=== PATIENT | male | born 1970 | race Caucasian/White ===

== ENCOUNTER 2024-03-07 20:10 | Inpatient (IN) | payer OTHER, SELFPAY ==
[2024-03-07] VITALS (42 sets, daily range): BP systolic 76–118; BP diastolic 16–92; BMI 22.1; BMI 23.1
[2024-03-07 16:39] LABS: % Basophils 0.2 % (0-2); % Eosinophils 0.3 % (0-6); % Immature Granulocytes 0.5 % (0-0.5); % Lymphocytes 19.5 % (20.5-51.1); % Monocytes 11.4 % (1.7-9.3); % Neutrophils 68.1 % (42.2-75.2); Absolute Immature Granulocytes 0.1 10^3/uL (0-0.05); Absolute Lymphocytes 1.9 10^3/uL (1.2-3.4); Absolute Monocytes 1.1 10^3/uL (0.1-0.6); Absolute Neutrophils 6.5 10^3/uL (1.4-6.5); Hematocrit 40.1 % (39.0-52.0); Mean Corp Hgb Conc. 34.9 g/dL (33.0-37.0); Mean Corpuscular Hgb 33.9 pg (27.0-31.0); Mean Corpuscular Volume 97.1 fL (80.0-94.0); Mean Platelet Volume 10.9 fL (7.4-10.4); Nucleated Red Blood Cells % 0 % (-); Platelet Count 281 10^3/uL (130-400); Red Blood Cell Count 4.13 10^6/uL (4.70-6.10); Red Cell Dist. Width 13.6 % (11.5-14.5); White Blood Cell Count 9.6 10^3/uL (4.8-10.8)
--- NOTE | 2024-03-07 16:47 | ED.GENMED ---
History of Present Illness
<Michela Leonardo PA-C - Last Filed: 03/07/24 21:50>
General
Chief Complaint: Abdominal Pain
Source: patient
Time Seen by Provider: 03/07/24 16:37
History of Present Illness
History of Present Illness:
53yoM with a history of tobacco use (1/2ppd) presenting for evaluation of palpitations. Patient started with GI symptoms about a week ago including abdominal discomfort, decreased appetite, and diarrhea. Abdominal pain is located in the LUQ and
flank regions. He was seen by his PCP yesterday for the symptoms and was sent for outpatient blood work and stool studies. He completed these tests although has not received the results yet. Patient started to experience shortness of breath as
well as feeling like his heart racing over the past few days. Symptoms became worse today prompting him to come to the ED. Patient reports that his GI symptoms are improving. He denies any dizziness or syncope. Patient denies any prior medical
history and is not taking any medications. He arrives in afib with RVR with a heart rate in the 160s.
Phy Exam
<Michela Leonardo PA-C - Last Filed: 03/07/24 21:50>
General Physical Exam
General Presentation: mild distress
General Skin: warm and dry
General Habitus: normal
General Mental: alert
ENT Exam
ENT Exam: normocephalic
Cardiovascular Exam
Cardiovascular Exam: irregularly irregular and tachycardia
Pulmonary Exam
Pulmonary Exam: no respiratory distress, no rales, no rhonchi and other (Tachypnea noted)
Respirations: mild increase in effort
Gastrointestinal Exam
Gastrointestinal Exam: soft and non distended
Palpation: left upper quadrant: Moderate tenderness
Giancarlo Coma Scale
Eye Opening: Spontaneous
Verbal Response: Oriented
Motor Response: Obeys Commands
GCS Total Score: 15
Skin Exam
Skin Exam: normal color and warm/dry
Psychiatric Exam
Psychiatric Exam: normal mood/affect
Course
<Michela Leonardo PA-C - Last Filed: 03/07/24 21:50>
Orders/Labs/Results
Orders:
Orders
03/07/24 Breakfast
NPO
Allow oral meds: Yes
Allow clear liquids: Sips of Clears
03/07/24 16:12
Electrocardiogram (*1) Urgent
Reason for Study: Shortness of Breath
EKG- Treatment ONCE
03/07/24 16:18
COVID-19 Antigen Urgent
Source: Nasal Swab
Complete Blood Count/With Diff Urgent
Comprehensive Metabolic Panel Urgent
Lipase Urgent
Magnesium Urgent
NT-proBNP Urgent
03/07/24 16:45
Cardiac Monitoring- Treatment ONCE
0.9% Sodium Chloride 1000 ml [Nss] 1,000 ml IV BOLUS
Diltiazem HCl [Cardizem] 15 mg IV NOW STA
CR Chest Portable - 1 View Urgent
Comment:
Reason For Exam: SOB
Reason Study Needs to be Portable: Unable to Transport
03/07/24 16:53
TSH Reflex To Free T4 Urgent
Troponin I Urgent
03/07/24 17:07
0.9% Sodium Chloride 1000 ml [Nss] 1,000 ml IV BOLUS
03/07/24 17:09
Hepatitis A IgM Antibody Urgent
Hepatitis B Core Ab, IgM Urgent
Hepatitis B Surface Antibody Urgent
Hepatitis B Surface Antigen Urgent
Hepatitis C Antibody Urgent
PTT Urgent
Comment: ADD ON
Prothrombin Time Urgent
03/07/24 17:39
CT Chest/abd/pelvis Angio W/wo Urgent
Comment:
Reason For Exam: SOB, LUQ/flank pain
03/07/24 17:57
Electrocardiogram (*1) Urgent
Reason for Study: Shortness of Breath
EKG- Treatment ONCE
03/07/24 18:00
NORepinephrine 4 MG/250 ML [Levophed] 4 mg in 250 ml IV PER PROTOCOL
Initial dose in mcg/min, then titrate:: 4
Titrate to keep:: MAP > 65 mmHg
Titrate by mcg/min:: 1-2 mcg/min
Frequency of titrations (minutes):: 5
Maximum dose in ICU in mcg/min:: 30
Maximum dose in IMU in mcg/min:: 8
Maximum dose in IVU in mcg/min:: 4
Begin to taper infusion when:: Remained at goal for 4hrs
Taper by mcg/min:: 1-2 mcg/min
Frequency of taper (minutes) if patient maintains goal:: 30
Taper to off?: Yes
If infusion off & no longer maintaining goal:: Contact Provider
03/07/24 19:13
Urinalysis Reflex To Culture Urgent
03/07/24 19:45
Diltiazem 125 mg/125 ml Nss [Cardizem] 125 mg in 125 ml IV PER PROTOCOL
Initial dose in mg/hr, then titrate:: 5
Titrate to keep:: Heart rate 80-100 bpm
Titrate by mg/hr:: 5 mg/hr
Frequency of titrations (minutes):: 15
Maximum dose in mg/hr:: 15
03/07/24 19:57
Admit/Transfer Patient As Directed
Co-Sign Provider:
Level of Care: Inpatient admission
Assign to:: IMU- Intermediate Care
Physician / Group: [facility]
Diagnosis: A-Fib with RVR, CHF
Reason for Hospitalization: A-Fib with RVR, CHF
Expected length of stay greater than two midnights?: Yes
ELOS- Estimated Length of Stay in days: 3
I certify the patient meets the requirements for IP care: Yes
PRN Pain Medication Management As Directed
May give lesser potent ordered pain med per pt: Yes
preference::
Protocol:: Medication orders for pain may be administered in a
manner that supports deferring to patient preference
when the pt is:
- Requesting an ordered lesser potent pain medication.
Least to most potent pain medications are defined
as: acetaminophen < NSAID < tramadol < opioids
(morphine, oxycodone, hydromorphone).
- Requesting a lesser dose of the same medication IF
ORDERED.
- Requesting a less intrusive route of administration
if both routes are prescribed by the provider (PO <
IV).
03/07/24 19:58
Code Status As Directed
Resuscitation Status: Full Code
03/07/24 20:51
Acetaminophen [Tylenol] 650 mg PO Q4HPRN PRN
Diltiazem 125 mg/125 ml Nss [Cardizem] 125 mg in 125 ml IV PER PROTOCOL
Initial dose in mg/hr, then titrate:: 5
Titrate to keep:: Other
Titrate to keep other:: HR 90-110
Titrate by mg/hr:: 5 mg/hr
Frequency of titrations (minutes):: 15
Maximum dose in mg/hr:: 15
Heparin 76311 Units/250 ml 25,000 units in 250 ml IV PER PROTOCOL
Weight to be used for heparin protocol in kilograms (kg):: 70
Protocol:: Cardiac Tx/Acute Coronary
PTT Goal Range to be used:: PTT 73 to 111 seconds
Order type:: Initial
INITIAL Infusion Dose (UNITS/KG/hr) & then follow protocol:: 12 units/kg/hr
Infusion Dose in UNITS/hr & then follow protocol (UNITS/hr):: 850
INFUSION RATE in mL/hr & then follow protocol (mL/hr):: 8.5
PTT less than or equal to 64 seconds:: Increase rate by 200 units/hr (+ 2 mL/hr)
PTT 64.1 to 72.9 seconds:: Increase rate by 100 units/hr (+ 1 mL/hr)
PTT 73 to 111 seconds:: Target Range. No change in rate.
PTT 111.1 to 130.9 seconds:: Decrease rate by 100 units/hr (- 1 mL/hr)
PTT 131 to 199.9 seconds:: HOLD for 1 hr. Then decrease rate by 200 units/hr (- 2 mL/hr)
PTT greater than or equal to 200 seconds:: HOLD for 2 hrs & Notify Provider. Then decrease by 200 units/hr (-
2 mL/hr)
Lab follow-up:: Each change, PTT q6h until 2 consecutive are therapeutic. Then PTT
daily.
03/07/24 20:51
Echo 2D MMode Doppler [Echo 2D MMode Color/Doppler] Routine
Reason for Study: A-Fib with RVR, CHF
CARDIOLOGY CONSULT Routine
Consulting Provider: Hamzah Caro
Was physician already notified: Yes
Reason for consult: A-Fib with RVR, CHF
[id number] [S] Routine
Heparin Protocol- PTT Orders As Directed
PTT per Heparin protocol: -Obtain CBC and baseline PTT - if not already collected.
-Obtain PTT 6 hours from start of infusion. Then, every 6 hours until 2 consecutive
PTT's are therapeutic. Then, PTT Daily.
-With each rate change, obtain PTT every 6 hours until 2 consecutive PTT's are
therapeutic. Then, PTT Daily.
Activity As Directed
Activity Level: Ambulate
With Assistance
Bladder Scan As Directed
Follow Bladder Retention/Intermittent Cath Algorithm?: Yes
PRN if no void in __ hours: 6
Frequency: Per Retention Algorithm
If Bladder Scan Result >: 400
then:: Straight cath
EKG with chest pain [ECG as needed] As Directed
ECG as needed for:: Chest Pain
I/O [Intake/ Output] As Directed
Frequency: Per unit guidelines
Notify MD As Directed
Notify physician if: PTT is greater than or equal to 200.
Orthostatic Vital Signs As Directed
Orthostatic VS Frequency: BID
Straight Cath As Directed
Frequency: Per Retention Algorithm
Additional Instructions: straight cath as needed per acute urinary retention algorithm for 24 hrs
Additional Instructions: for bladder scan greater than 400 mL
Vital Signs As Directed
Frequency: Per unit guidelines
Weight As Directed
Frequency: Daily
Oxygen Therapy [O2 Therapy] [RESP] Routine
Titrate/Wean O2 to maintain O2 sat greater than (%): 94
03/08/24 06:00
EKG [Electrocardiogram (*1)] IN AM
Reason for Study: Chest Pain
Basic Metabolic Panel IN AM
Cardiovascular Evaluation IN AM
Complete Blood Count/No Diff IN AM
03/09/24 06:00
Complete Blood Count/No Diff Q2D
Comment: Notify MD if platelet count is <130,000 or decreases by 50% from baseline
03/11/24 06:00
Complete Blood Count/No Diff Q2D
Comment: Notify MD if platelet count is <130,000 or decreases by 50% from baseline
03/13/24 06:00
Complete Blood Count/No Diff Q2D
Comment: Notify MD if platelet count is <130,000 or decreases by 50% from baseline
03/15/24 06:00
Complete Blood Count/No Diff Q2D
Comment: Notify MD if platelet count is <130,000 or decreases by 50% from baseline
03/17/24 06:00
Complete Blood Count/No Diff Q2D
Comment: Notify MD if platelet count is <130,000 or decreases by 50% from baseline
03/19/24 06:00
Complete Blood Count/No Diff Q2D
Comment: Notify MD if platelet count is <130,000 or decreases by 50% from baseline
03/21/24 06:00
Complete Blood Count/No Diff Q2D
Comment: Notify MD if platelet count is <130,000 or decreases by 50% from baseline
03/23/24 06:00
Complete Blood Count/No Diff Q2D
Comment: Notify if platelet count is <130,000 or decreases by 50% from baseline
Abnormal Lab Results
03/07/24 03/07/24 03/07/24
16:18 16:53 17:09
RBC 4.13 L 10^6/uL
(4.70-6.10)
MCV 97.1 H fL
(80.0-94.0)
MCH 33.9 H pg
(27.0-31.0)
MPV 10.9 H fL
(7.4-10.4)
Abs Immat Gran (auto) 0.1 H 10^3/uL
(0-0.05)
Absolute Monos (auto) 1.1 H 10^3/uL
(0.1-0.6)
Lymphocytes % 19.5 L %
(20.5-51.1)
Monocytes % 11.4 H %
(1.7-9.3)
PT 22.9 H Sec
(11.4-14.6)
Sodium 128 L mmol/L
(135-145)
Chloride 92 L mmol/L
(98-107)
Carbon Dioxide 20 L mmol/L
(22-30)
BUN 31 H mg/dl
(9-20)
Glucose 113 H mg/dl
(70-99)
Total Bilirubin 2.8 H mg/dl
(0.2-1.3)
AST 1277 H* U/L
(17-59)
ALT 597 H* U/L
(0-50)
Troponin I 0.343 H* ng/ml
03/07/24 16:18
03/07/24 16:18
Vital Signs
Initial and Last Documented VS:
Initial Vital Signs
Temp Pulse Resp BP Pulse Ox
98.1 F 80 20 106/73 99
03/07/24 16:08 03/07/24 16:08 03/07/24 16:08 03/07/24 16:08 03/07/24 16:08
Last Documented Vital Signs
Temp Pulse Resp BP Pulse Ox
98.0 F 134 31 98/76 98
03/07/24 21:22 03/07/24 21:31 03/07/24 21:31 03/07/24 21:31 03/07/24 21:44
<Andrea Mejia, DO - Last Filed: 03/07/24 17:48>
Orders/Labs/Results
Orders:
Orders
03/07/24 Breakfast
NPO
Allow oral meds: Yes
Allow clear liquids: Sips of Clears
03/07/24 16:12
Electrocardiogram (*1) Urgent
Reason for Study: Shortness of Breath
EKG- Treatment ONCE
03/07/24 16:18
COVID-19 Antigen Urgent
Source: Nasal Swab
Complete Blood Count/With Diff Urgent
Comprehensive Metabolic Panel Urgent
Lipase Urgent
Magnesium Urgent
NT-proBNP Urgent
03/07/24 16:45
Cardiac Monitoring- Treatment ONCE
0.9% Sodium Chloride 1000 ml [Nss] 1,000 ml IV BOLUS
Diltiazem HCl [Cardizem] 15 mg IV NOW STA
CR Chest Portable - 1 View Urgent
Comment:
Reason For Exam: SOB
Reason Study Needs to be Portable: Unable to Transport
03/07/24 16:53
TSH Reflex To Free T4 Urgent
Troponin I Urgent
03/07/24 17:07
0.9% Sodium Chloride 1000 ml [Nss] 1,000 ml IV BOLUS
03/07/24 17:09
Hepatitis A IgM Antibody Urgent
Hepatitis B Core Ab, IgM Urgent
Hepatitis B Surface Antibody Urgent
Hepatitis B Surface Antigen Urgent
Hepatitis C Antibody Urgent
PTT Urgent
Comment: ADD ON
Prothrombin Time Urgent
03/07/24 17:39
CT Chest/abd/pelvis Angio W/wo Urgent
Comment:
Reason For Exam: SOB, LUQ/flank pain
03/07/24 17:57
Electrocardiogram (*1) Urgent
Reason for Study: Shortness of Breath
EKG- Treatment ONCE
03/07/24 18:00
NORepinephrine 4 MG/250 ML [Levophed] 4 mg in 250 ml IV PER PROTOCOL
Initial dose in mcg/min, then titrate:: 4
Titrate to keep:: MAP > 65 mmHg
Titrate by mcg/min:: 1-2 mcg/min
Frequency of titrations (minutes):: 5
Maximum dose in ICU in mcg/min:: 30
Maximum dose in IMU in mcg/min:: 8
Maximum dose in IVU in mcg/min:: 4
Begin to taper infusion when:: Remained at goal for 4hrs
Taper by mcg/min:: 1-2 mcg/min
Frequency of taper (minutes) if patient maintains goal:: 30
Taper to off?: Yes
If infusion off & no longer maintaining goal:: Contact Provider
03/07/24 19:13
Urinalysis Reflex To Culture Urgent
03/07/24 19:45
Diltiazem 125 mg/125 ml Nss [Cardizem] 125 mg in 125 ml IV PER PROTOCOL
Initial dose in mg/hr, then titrate:: 5
Titrate to keep:: Heart rate 80-100 bpm
Titrate by mg/hr:: 5 mg/hr
Frequency of titrations (minutes):: 15
Maximum dose in mg/hr:: 15
03/07/24 19:57
Admit/Transfer Patient As Directed
Co-Sign Provider:
Level of Care: Inpatient admission
Assign to:: IMU- Intermediate Care
Physician / Group: [facility]
Diagnosis: A-Fib with RVR, CHF
Reason for Hospitalization: A-Fib with RVR, CHF
Expected length of stay greater than two midnights?: Yes
ELOS- Estimated Length of Stay in days: 3
I certify the patient meets the requirements for IP care: Yes
PRN Pain Medication Management As Directed
May give lesser potent ordered pain med per pt: Yes
preference::
Protocol:: Medication orders for pain may be administered in a
manner that supports deferring to patient preference
when the pt is:
- Requesting an ordered lesser potent pain medication.
Least to most potent pain medications are defined
as: acetaminophen < NSAID < tramadol < opioids
(morphine, oxycodone, hydromorphone).
- Requesting a lesser dose of the same medication IF
ORDERED.
- Requesting a less intrusive route of administration
if both routes are prescribed by the provider (PO <
IV).
03/07/24 19:58
Code Status As Directed
Resuscitation Status: Full Code
03/07/24 20:51
Acetaminophen [Tylenol] 650 mg PO Q4HPRN PRN
Diltiazem 125 mg/125 ml Nss [Cardizem] 125 mg in 125 ml IV PER PROTOCOL
Initial dose in mg/hr, then titrate:: 5
Titrate to keep:: Other
Titrate to keep other:: HR 90-110
Titrate by mg/hr:: 5 mg/hr
Frequency of titrations (minutes):: 15
Maximum dose in mg/hr:: 15
Heparin 43331 Units/250 ml 25,000 units in 250 ml IV PER PROTOCOL
Weight to be used for heparin protocol in kilograms (kg):: 70
Protocol:: Cardiac Tx/Acute Coronary
PTT Goal Range to be used:: PTT 73 to 111 seconds
Order type:: Initial
INITIAL Infusion Dose (UNITS/KG/hr) & then follow protocol:: 12 units/kg/hr
Infusion Dose in UNITS/hr & then follow protocol (UNITS/hr):: 850
INFUSION RATE in mL/hr & then follow protocol (mL/hr):: 8.5
PTT less than or equal to 64 seconds:: Increase rate by 200 units/hr (+ 2 mL/hr)
PTT 64.1 to 72.9 seconds:: Increase rate by 100 units/hr (+ 1 mL/hr)
PTT 73 to 111 seconds:: Target Range. No change in rate.
PTT 111.1 to 130.9 seconds:: Decrease rate by 100 units/hr (- 1 mL/hr)
PTT 131 to 199.9 seconds:: HOLD for 1 hr. Then decrease rate by 200 units/hr (- 2 mL/hr)
PTT greater than or equal to 200 seconds:: HOLD for 2 hrs & Notify Provider. Then decrease by 200 units/hr (-
2 mL/hr)
Lab follow-up:: Each change, PTT q6h until 2 consecutive are therapeutic. Then PTT
daily.
03/07/24 20:51
Echo 2D MMode Doppler [Echo 2D MMode Color/Doppler] Routine
Reason for Study: A-Fib with RVR, CHF
CARDIOLOGY CONSULT Routine
Consulting Provider: Hamzah Caro
Was physician already notified: Yes
Reason for consult: A-Fib with RVR, CHF
[id number] [S] Routine
Heparin Protocol- PTT Orders As Directed
PTT per Heparin protocol: -Obtain CBC and baseline PTT - if not already collected.
-Obtain PTT 6 hours from start of infusion. Then, every 6 hours until 2 consecutive
PTT's are therapeutic. Then, PTT Daily.
-With each rate change, obtain PTT every 6 hours until 2 consecutive PTT's are
therapeutic. Then, PTT Daily.
Activity As Directed
Activity Level: Ambulate
With Assistance
Bladder Scan As Directed
Follow Bladder Retention/Intermittent Cath Algorithm?: Yes
PRN if no void in __ hours: 6
Frequency: Per Retention Algorithm
If Bladder Scan Result >: 400
then:: Straight cath
EKG with chest pain [ECG as needed] As Directed
ECG as needed for:: Chest Pain
I/O [Intake/ Output] As Directed
Frequency: Per unit guidelines
Notify MD As Directed
Notify physician if: PTT is greater than or equal to 200.
Orthostatic Vital Signs As Directed
Orthostatic VS Frequency: BID
Straight Cath As Directed
Frequency: Per Retention Algorithm
Additional Instructions: straight cath as needed per acute urinary retention algorithm for 24 hrs
Additional Instructions: for bladder scan greater than 400 mL
Vital Signs As Directed
Frequency: Per unit guidelines
Weight As Directed
Frequency: Daily
Oxygen Therapy [O2 Therapy] [RESP] Routine
Titrate/Wean O2 to maintain O2 sat greater than (%): 94
03/08/24 06:00
EKG [Electrocardiogram (*1)] IN AM
Reason for Study: Chest Pain
Basic Metabolic Panel IN AM
Cardiovascular Evaluation IN AM
Complete Blood Count/No Diff IN AM
03/09/24 06:00
Complete Blood Count/No Diff Q2D
Comment: Notify MD if platelet count is <130,000 or decreases by 50% from baseline
03/11/24 06:00
Complete Blood Count/No Diff Q2D
Comment: Notify MD if platelet count is <130,000 or decreases by 50% from baseline
03/13/24 06:00
Complete Blood Count/No Diff Q2D
Comment: Notify MD if platelet count is <130,000 or decreases by 50% from baseline
03/15/24 06:00
Complete Blood Count/No Diff Q2D
Comment: Notify MD if platelet count is <130,000 or decreases by 50% from baseline
03/17/24 06:00
Complete Blood Count/No Diff Q2D
Comment: Notify MD if platelet count is <130,000 or decreases by 50% from baseline
03/19/24 06:00
Complete Blood Count/No Diff Q2D
Comment: Notify MD if platelet count is <130,000 or decreases by 50% from baseline
03/21/24 06:00
Complete Blood Count/No Diff Q2D
Comment: Notify MD if platelet count is <130,000 or decreases by 50% from baseline
03/23/24 06:00
Complete Blood Count/No Diff Q2D
Comment: Notify MD if platelet count is <130,000 or decreases by 50% from baseline
Abnormal Lab Results
03/07/24 03/07/24 03/07/24
16:18 16:53 17:09
RBC 4.13 L 10^6/uL
(4.70-6.10)
MCV 97.1 H fL
(80.0-94.0)
MCH 33.9 H pg
(27.0-31.0)
MPV 10.9 H fL
(7.4-10.4)
Abs Immat Gran (auto) 0.1 H 10^3/uL
(0-0.05)
Absolute Monos (auto) 1.1 H 10^3/uL
(0.1-0.6)
Lymphocytes % 19.5 L %
(20.5-51.1)
Monocytes % 11.4 H %
(1.7-9.3)
PT 22.9 H Sec
(11.4-14.6)
Sodium 128 L mmol/L
(135-145)
Chloride 92 L mmol/L
(98-107)
Carbon Dioxide 20 L mmol/L
(22-30)
BUN 31 H mg/dl
(9-20)
Glucose 113 H mg/dl
(70-99)
Total Bilirubin 2.8 H mg/dl
(0.2-1.3)
AST 1277 H* U/L
(17-59)
ALT 597 H* U/L
(0-50)
Troponin I 0.343 H* ng/ml
03/07/24 16:18
03/07/24 16:18
Vital Signs
Initial and Last Documented VS:
Initial Vital Signs
Temp Pulse Resp BP Pulse Ox
98.1 F 80 20 106/73 99
03/07/24 16:08 03/07/24 16:08 03/07/24 16:08 03/07/24 16:08 03/07/24 16:08
Last Documented Vital Signs
Temp Pulse Resp BP Pulse Ox
98.0 F 134 31 98/76 98
03/07/24 21:22 03/07/24 21:31 03/07/24 21:31 03/07/24 21:31 03/07/24 21:44
<Michela Leonardo PA-C - Last Filed: 03/07/24 21:50>
MDM/Problems Addressed
Differential Diagnosis Includes:
53yoM here with GI symptoms (abd pain, diarrhea) x 1 week. Now with SOB and palpitations. Heart rate 160s on initial exam. EKG obtained in triage shows afib with RVR. No prior history of this. Patient also noted to be tachypneic although he denies
feeling SOB currently. +LUQ tenderness on abdominal exam. Differential diagnosis includes but is not limited to: afib, electrolyte abnormality, thyroid dysfunction, malignancy, ACS, PE, aortic dissection
Initial ED plan: Patient placed on director cardiac. Check cardiac labs, lipase, magnesium, TSH, and portable CXR. IV fluid bolus and IV Cardizem bolus.
<Michela Leonardo PA-C - Last Filed: 03/07/24 21:50>
*EKG
Interpreted by ED Provider?: Yes
EKG Intrepretation Date: 03/07/24
Heart Rate: 163
Rate: tachycardiac
Rhythm: a-fib and PVC's
[place]: normal axis
Interval: normal interval
Ischemia: non-specific ST changes
*Critical Care Note
Total Time (30-74mins, 75-104mins- exclusive of procedures): 45
<Michela Leonardo PA-C - Last Filed: 03/07/24 21:50>
Update Note
Update Note:
Labs reveal AST 1277, ALT 597, and total bilirubin 2.8. Lipase normal. INR added which is elevated at 2. BNP 6000 and troponin 0.343. Portable CXR shows small bilateral pleural effusions and mild cardiomegaly.
Patient became hypotensive after receiving Cardizem bolus. Additional fluid bolus ordered. CTA CAP ordered to evaluate for aortic dissection and PE. CT is negative for dissection but does reveal bilateral effusions, mild ascites, and early cirrhotic
changes.
Blood pressure improved with fluids. Case discussed with cardiology. Will start on a Cardizem gtt at 5mg/hr without a bolus. He was admitted for further management.
ED Attending Note
<Michela Leonardo PA-C - Last Filed: 03/07/24 21:50>
-
Portions of this chart may have been created with voice recognition software.� Occasional wrong word or��sound alike� substitutions may have occurred due to the inherent limitations of voice recognition software.
<Andrea Mejia DO - Last Filed: 03/07/24 17:48>
ED Attending Note
Patient seen and examined by attending physician: Yes
ED Attending Note:
I reviewed and agree with history and treatment plan by Michela Leonardo. My exam reveals 53-year-old male in minimal distress, tachycardia, hypotensive. Lungs clear. Abdomen exam with mild left upper quadrant tenderness. No rebound or guarding.
Patient with elevated troponin, rapid atrial fibrillation and elevated BNP. Will evaluate for aortic pathology, pulmonary emboli and concern for NSTEMI.
Discharge Plan
Departure
Patient Disposition: Admit
Date of Disposition: 03/07/24
Time of Disposition: 19:32
Presentation/result/management discussed w/ accepting MD/DO: Hospitalist
Discharge Problem:
Atrial fibrillation with RVR, Bilateral pleural effusion, Transaminitis
Interventions
Interventions:
*Risk Screen - Suicide Last Done: 03/07/24 16:03
*General Assessment Last Done: 03/07/24 16:08
*Neglect/Abuse Screening Last Done: 03/07/24 16:45
ED- Fall Risk Assessment Last Done: 03/07/24 19:16
*ED COVID-19 Vaccine History Last Done: 03/07/24 16:45
*Nursing Disposition Last Done: 03/07/24 20:45
FD-Xpuinh-Fdfwhjjten Assessment Last Done: 03/07/24 19:16
Discharge Date and Time
Discharge Date/Time: 03/07/24 21:00
[2024-03-07 16:55] LABS: COVID-19 Antigen Negative (Negative)
[2024-03-07] MEDS: NSS 1000 IV ×2 (16:57→17:15)
[2024-03-07 16:58] LABS: NT-proBNP 6310 pg/ml
[2024-03-07 17:00] LABS: ALT (SGPT) 597 U/L (0-50); Albumin 3.8 g/dl (3.5-5.0); Alkaline Phosphatase 105 U/L (38-126); Blood Urea Nitrogen 31 mg/dl (9-20); Calcium 8.7 mg/dl (8.4-10.2); Carbon Dioxide 20 mmol/L (22-30); Chloride 92 mmol/L (98-107); Estimated Creatinine Clearance 94 ml/min; Glucose 113 mg/dl (70-99); Potassium 4.9 mmol/L (3.5-5.1); Sodium 128 mmol/L (135-145); Total Bilirubin 2.8 mg/dl (0.2-1.3); Total Protein 6.3 g/dl (6.3-8.2); eGFR > 60.00
[2024-03-07] MEDS: CARDIZEM 15 MG IV (17:00)
[2024-03-07 17:09] LABS: AST (SGOT) 1277 U/L (17-59); Lipase 123 U/L (23-300)
[2024-03-07 17:20] LABS: Magnesium 1.9 mg/dl (1.6-2.3)
[2024-03-07 17:29] LABS: INR 2.04; PT 22.9 Sec (11.4-14.6)
[2024-03-07 17:36] LABS: Troponin I 0.343 ng/ml
[2024-03-07 17:50] LABS: TSH Reflex To Free T4 2.84 uIU/ml (0.47-4.68)
--- NOTE | 2024-03-07 20:04 | HPS.HSE ---
Family Physician
-
Family Physician: Gregorio Milton MD
Chief Complaint
-
Abdominal Pain, Diarrhea, Palpitations
History of Present Illness
Patient is a 53y M with no significant PMH who presents to ED complaining of abdominal pain and diarrhea x 1 week. Patient states that his symptoms started last and have waxed and waned since that time. He notes LLQ abdominal pain with
initially watery diarrhea and now soft, frequent stools. No bloody or black stools. No fevers / chills. No N/V. Patient denies any recent travel, unusual food exposures, etc.
Patient also states that he was seen by his physician yesterday and advised to present to the ED at that time. He was noted to have a rapid heart rate and says that he did note some palpitations at that time. He declined ED evaluation at that time
however.
Patient reports feeling very 'tired' and fatigued with activity over the past week - though he denies any dyspnea per se. No chest pain or pressure. No LE edema.
Patient felt that his symptoms seemed worse today and he presented to the ED for further evaluation.
In the ED, patient lying flat comfortably and is noted to be in A-Fib with uncontrolled ventricular response.
He was given a bolus dose of diltiazem and his BP decreased into the 70s systolic. This has improved after 2 liters of IVFs.
His HR at present is 130-150 bpm.
Medical History
Past Medical History
Past Medical History: Reports None
Past Surgical History: Reports Other
Additional Past Surgical History:
Dental Surgeries
Social History
Tobacco: Smoker (Current every day smoker. About 1/2 ppd. Total of 15 pack years.)
Alcohol: Occasional (Rare alcohol use. 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
Drug: None
Family History
Family History: Other (Father: Obesity Mother: A-Fib, Breast Cancer)
Allergies / Home Medications
Allergies reflects when Allergies were last updated in [facility].
Home Medications with original date entered in [facility]
Allergy/Medication List:
Allergies
Allergy/AdvReac Type Severity Reaction Status Date / Time
No Known Allergies Allergy Unverified 03/07/24 16:08
Home Medications
No Meds [No Current Medications] 03/07/24
Review of Systems
-
History Source: Patient
A 12 point ROS was completed and negative except as noted: Yes
Constitutional: Reports Fatigue; Denies Fever or Chills
EENT: Denies Sore Throat
Respiratory: Denies Cough, Hemoptysis or Trouble Breathing
Cardiac: Reports Palpitations; Denies Chest Pain, Diaphoresis or Syncope
Abdomen/GI: Reports Abdominal Pain and Diarrhea; Denies Nausea, Vomiting, Bloody Stools or Black Stools
: Denies Dysuria, Frequency or Flank Pain
Musculoskeletal: Denies Joint Pain or Edema
Neurological: Denies Dizzy or Headache
Psych: Denies Depression or Anxiety
Physical Exam
Vital Signs
Vital Signs
Temp Pulse Resp BP Pulse Ox
98.1 F 133 32 100/70 96
03/07/24 16:08 03/07/24 19:13 03/07/24 19:13 03/07/24 19:48 03/07/24 19:13
Physical Exam
General: Other (53y M in no acute distress.)
HEENT: Moist mucous membranes, PERRLA and Other (Pos JVD to the angle of the mandible.)
Respiratory: Other (Decreased BS at bases - otherwise clear.)
Cardiac: S1/S2, Irregular Rhythm and Murmur (II/ RICCARDO)
GI: Soft, Non Tender, Non Distended and Normal Bowel Sounds
Musculoskeletal: No Clubbing, No Cyanosis and No Edema
Neuro: AO x 3
Laboratory Results
-
03/07/24 16:18
03/07/24 16:18
Laboratory Results
PT 22.9 Sec (11.4-14.6) H 03/07/24 17:09
INR 2.04 03/07/24 17:09
Total Bilirubin 2.8 mg/dl (0.2-1.3) H 03/07/24 16:18
AST 1277 U/L (17-59) H* 03/07/24 16:18
ALT 597 U/L (0-50) H* 03/07/24 16:18
Alkaline Phosphatase 105 U/L (38-126) 03/07/24 16:18
Troponin I 0.343 ng/ml H* 03/07/24 16:53
Lipase 123 U/L (23-300) 03/07/24 16:18
Impression/Plan
-
A/P: Patient is a 53y M with no significant PMH who presents to ED complaining of one week of abdominal pain, diarrhea and fatigue.
Atrial Fibrillation - New - With Rapid Ventricular Response
- Admit to IMU for further evaluation and treatment.
- Cardizem infusion and titrate as needed for rate control without significant hypotension.
- Cardiology evaluation in the AM for additional recommendations / treatment options.
- IV heparin for now for stroke risk reduction.
Acute HF- Unknown Type
- Cardiomegaly noted on imaging with evidence of hepatic cirrhosis, JVD on exam and bilateral pleural effusions.
- Suspect related to A-Fib to some degree.
- Would likely benefit from diuresis - once rate / BP are stabilized.
- Check Echo.
- Cardiology evaluation as noted above.
- Caution with additional volume / IVFs given apparent volume overload.
Troponin Elevation - Unknown Type
- No complaints of chest pain. EKG without obvious ischemia.
- Potentially due to rate-related process / stress.
- Follow troponin to peak. Rate control as noted above.
- Cardiology evaluation.
Abnormal LFTs
Cirrhosis
Hyponatremia
- Abnormal LFTs, minimal ascites, JVD, abdominal discomfort and diarrhea.
- Seems c/w right-sided heart failure based on remainder of presentation.
- BNP = 6310 with no prior value for comparison.
- No recent travel or other known exposures, etc.
- No significant EtOH, drug use, etc per patient.
- Hepatitis panel is pending.
- Follow for improvement in LFTs, etc.
- Would likely benefit from diuresis when hemodynamically stable to do so - as noted above.
DVT Prophylaxis: On IV Heparin
Code Status: Full
[2024-03-07] MEDS: CARDIZEM 125 IV (20:19)
[2024-03-07 20:31] LABS: APTT 30.1 Sec (23.4-35.0)
--- NOTE | 2024-03-07 21:00 | PTCARENOTE ---
Pt received from ED via stretcher. Assisted into bed and made comfortable. Cardizem currently infusing at 5mg/hr. Afib noted on monitor with rates 130-140. Heparin gtt started as ordered. Cardizem titrated to 10mg/hr. Pt states last BM was early am.
Sat high 80s when sleeping. Placed on O2 2l NC with improvement in sat. Assessment as charted.
[2024-03-07] MEDS: HEPARIN 25000 UNITS/250 ML IV (21:22)
[2024-03-07 23:19] LABS: Troponin I 0.293 ng/ml
[2024-03-08] VITALS (21 sets, daily range): BP systolic 67–122; BP diastolic 45–98; PULSE 90–98; BMI 23.7
[2024-03-08 04:18] LABS: Hematocrit 36.4 % (39.0-52.0); Hemoglobin 12.9 g/dL (13.0-18.0); Mean Corp Hgb Conc. 35.4 g/dL (33.0-37.0); Mean Corpuscular Hgb 34.3 pg (27.0-31.0); Mean Corpuscular Volume 96.8 fL (80.0-94.0); Mean Platelet Volume 11.2 fL (7.4-10.4); Platelet Count 264 10^3/uL (130-400); Red Blood Cell Count 3.76 10^6/uL (4.70-6.10); Red Cell Dist. Width 13.5 % (11.5-14.5); White Blood Cell Count 8.6 10^3/uL (4.8-10.8)
[2024-03-08 04:34] LABS: APTT 29.3 Sec (23.4-35.0)
[2024-03-08 04:43] LABS: Troponin I 0.239 ng/ml
[2024-03-08 04:58] LABS: Blood Urea Nitrogen 33 mg/dl (9-20); Calcium 8.1 mg/dl (8.4-10.2); Carbon Dioxide 17 mmol/L (22-30); Chloride 98 mmol/L (98-107); Estimated Creatinine Clearance 107 ml/min; Glucose 99 mg/dl (70-99); HDL Cholesterol 15 mg/dl; LDL Cholesterol, Calculated 95 mg/dl; Potassium 5.1 mmol/L (3.5-5.1); Sodium 129 mmol/L (135-145); Total Cholesterol 127 mg/dl (50-199); Triglyceride 85 mg/dl (10-149); Very Low Density Lipoprotein 17 mg/dl (0-30); eGFR > 60.00
[2024-03-08] MEDS: CARDIZEM 125 IV (06:40)
--- NOTE | 2024-03-08 07:23 | W.PN.HOSP.TC ---
Today's Communication/Plan
-
ECHO
Continue Cardizem drip, if EF is low will need to be switched to beta-blockers
Continue IV heparin for now may need to be switched to Eliquis
Added on LFTs
GI evaluation
Cardiology evaluation
Lasix when blood pressure stable
Assessment / Plan
Assessment / Plan
53-year-old male presented with abdominal pain diarrhea and palpitations. Diarrhea resolved now.
CT of the chest abdomen [id number] dissection. Cardiomegaly. Moderate emphysema. Bilateral pleural effusions moderate on the right and small on the left. Mild abdominal pelvic ascites. Mild hepatomegaly with slight nodularity of the
liver raising suspicion for early stage of cirrhosis. Urinary bladder wall thickening
EKG reviewed by me-atrial fibrillation with rapid rate, pulmonary disease pattern septal infarct
Awake alert
Cardiovascular system S1-S2 appreciated S3 appreciated
Chest bilateral rales and base decreased breath sounds
Abdomen soft and nontender, no right upper quadrant tenderness
No pedal edema
# Acute hypoxic respiratory insufficiency-likely secondary to CHF
# Atrial fibrillation-new diagnosis with rapid ventricular response
Cardizem infusion
Cardiology evaluation
IV heparin
Possible transition to Eliquis
Echo
Normal TSH
# Likely has acute heart failure
Volume overload with pleural effusions on imaging
Cardiomegaly noted on x-ray
Possible rate related
Check echo
Cardiology evaluation
# Elevated troponin-Type unknown. Trending down likely nonischemic myocardial injury-pending echo
# Abnormal LFTs- ? Shock Liver. Added on Labs this am
Alpha 1 antitrypsin-pending
Hepatitis panel pending
CT with nodular contour of the liver raising suspicion for early stages of cirrhosis?
Patient states that he drinks alcohol only during summer and that 2 rarely.
GI evaluation for further workup
# Coagulopathy- INR of 2 ? related to liver disease
# Hyponatremia-likely secondary to hypervolemia-will benefit from Lasix
# Urinary bladder wall thickening-outpatient urology evaluation
# Moderate emphysema-smoking cessation advised. Needs PFTs as outpatient. Alpha-1 antitrypsin level pending
# Active smoker-cessation counseling
# DVT prophylaxis-IV heparin
# Full code
Discussed with GI
time more than 50 min
Anticipated Discharge: > 48 hours
Subjective/Interval History
-
Date of Service: March 08, 2024
Objective Data
-
Labs:
Laboratory Results
03/07/24 03/07/24 03/08/24
17:09 20:51 03:56
WBC 8.6
Hgb 12.9 L
Hct 36.4 L
Plt Count 264
APTT 30.1 Cancelled 29.3
Sodium 129 L
Potassium 5.1
Chloride 98
Carbon Dioxide 17 L
BUN 33 H
Creatinine 0.8
Glucose 99
Calcium 8.1 L
03/08/24
11:00
WBC
Hgb
Hct
Plt Count
APTT Pending
Sodium
Potassium
Chloride
Carbon Dioxide
BUN
Creatinine
Glucose
Calcium
Vital Signs:
Vital Signs
Temp Pulse Resp BP Pulse Ox
97.9 F 87 20 122/95 92
03/08/24 03:11 03/08/24 06:00 03/08/24 06:00 03/08/24 06:00 03/08/24 06:00
I&O
03/07/24 03/08/24 03/09/24
06:59 06:59 06:59
Intake Total 200 / 200
Output Total 150 / 150
Balance 50 / 50
--- NOTE | 2024-03-08 07:28 | CON.CAR ---
Addendum entered and electronically signed by Hamzah Caro MD 03/08/24 10:04:
53 yo male with PMH of tobacco abuse admitted with SOB, palps. The week prior, he experienced GI sxs with diarrhea. No chest pain. Exam with irregular rhythm, no murmurs, no edema. Tele and EKG show A fib. Labs show TnI peak 0.3. Significant
AST/ALT elevation. Cr 0.8. Imaging shows cardiomegaly.
# A fib with RVR, new
-CHADS2-VASC =1 with suspected cardiomyopathy: heparin for AC for now
-currently rate control with diltiazem drip, and will transition to metoprolol
# Cardiomegaly on CXR and CT
-concern for cardiomyopathy; looks compensated on exam, and he did receive IV fluid bolus in ED
-echo this admission
-with concern for hepatic congestion, will try lasix 20mg IV x1
# Abnl LFT
-GI consulted: ? hepatitis vs congestion from HF
Original Note:
Consultation
Consultation Request
Date/Time Consultation Requested: 03/07/2024 20:50
Date/Time Consultation Performed: 03/08/2024 07:30
Requesting Provider: Dr. Ji
Performing Provider: JACKY Mckeon for Dr. Caro
Reason for Consultation: Acute heart failure, atrial fibrillation with RVR
Medical History
-
Chief Complaint: Palpitations
History of Present Illness:
Seng Robbins is a 53-year-old male without a significant past medical history other than current smoker who presented to the emergency department the chief complaint of palpitations. Last week he started with abdominal discomfort, poor p.o.
intake, and diarrhea. He endorsed associated left upper quadrant tenderness. He saw a primary care provider yesterday who sent him for labs including stool studies however he presented here for shortness of breath and the sensation of a racing
heart. He was found to be in atrial fibrillation with rapid ventricular response. Chest x-ray showed small bilateral pleural effusions. He was found to have an elevated troponin of 0.343 which has since trended down. His proBNP was also abnormal
at 6310. Other remarkable labs include AST 1277 and ALT 597.
Past Medical History
Past Medical History: None
Past Surgical History: None
Social History
Tobacco: Smoker (1/2 PPD)
Alcohol: Occasional
Drug: None
Personal:
Living: With Family
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
Family History
Family History: Reviewed & Not Pertinent
Allergies / Home Medications
Allergy/AdvReac Type Severity Reaction Status Date / Time
No Known Allergies Allergy Unverified 03/07/24 16:08
�Medication �Instructions �Recorded �Confirmed �Type
No Meds [No Current Medications] 03/07/24 03/07/24 History
Review of Systems
-
History Source: Patient
All other systems: Negative unless noted
Constitutional: Fatigue
EENT: No Symptoms
Respiratory: Trouble Breathing
Cardiac: Palpitations
Abdomen/GI: Nausea, Vomiting and Anorexia
: No Symptoms
Musculoskeletal: No Symptoms
Skin: No Symptoms
Neurological: Weakness
Endocrine: No Symptoms
Hematologic/Lymphatic: No Symptoms
Physical Exam
Vital Signs
Temp Pulse Resp BP Pulse Ox
97.7 F 87 20 122/95 92
03/08/24 07:10 03/08/24 06:00 03/08/24 06:00 03/08/24 06:00 03/08/24 06:00
Lab Results
03/08/24 03:56
03/08/24 03:56
Troponin I 0.239 ng/ml H* 03/08/24 03:56
Upk-W-Xegwtsdfczt Pept 6310 pg/ml 03/07/24 16:18
Physical Exam
General: Well Developed, Well Nourished, No Apparent Distress and Comfortable
HEENT: Normocephalic and Anicteric
Respiratory: Crackles
Cardiac: S1/S2, Irregular Rhythm and Peripheral Edema (trace LE)
Breast: Deferred by me
GI: Soft, Non Tender, Non Distended and Normal Bowel Sounds
Rectal: Deferred by Provider
Genito-urinary: No Costovertebral Tender
Musculoskeletal: No Clubbing and No Cyanosis
Skin: Warm and Dry
Neuro: AO x 3
Hematologic/Lymphatic: No Lymphadenopathy
Psych: Calm
Impression / Plan
-
Heart failure, presumed HFpEF, acute
-He had hypotension with intravenous diltiazem and received 2 L of IV fluid in the emergency department for hypotension post diltiazem bolus
-He needs diuresis when BP allows
-Daily weight, I/Os, and BMP with diuresis
-Echocardiogram ordered
Atrial fibrillation with rapid ventricular response
-Rate controlled on diltiazem drip
-If cirrhosis is confirmed, could consider nadolol
-Oral Anticoagulation: Heparin drip for now, case management to alanis apixaban 5 mg twice daily
-[id number]: score 1 but anticipate DCCV he will need Eliquis for 4 weeks (Heart failure)
Abnormal troponin, likely nonischemic myocardial injury in the setting of tachyarrhythmia
-Peak troponin was on arrival, 0.343
-Denies chest pain
Abnormal LFTs
-Could be in the setting of acute heart failure
-Hepatitis panel pending
-GI following
Coagulopathy, INR 2.04 in ER
Snoring, for several years, likely untreated CLEMENTE, can be evaluated in the outpatient setting
Current smoker, cessation recommended
Data Reviewed
-
EKG: Report Reviewed by me (Atrial fibrillation with rapid ventricular response, rate 163; atrial fibrillation with right ventricular response, rate 133)
Radiology: Report Reviewed by me (CXR: Small bilateral pleural effusions. Mild cardiomegaly.)
CT Scan: Report Reviewed by me (CTA: Cardiomegaly. Moderate emphysema. Moderate right and small left bilateral pleural effusions. Mild hepatomegaly and slight nodularity of the liver contour raising suspicion for the early changes of cirrhosis.)
Labs: Labs Reviewed by me
Old Records: Reviewed ([facility] notes)
--- NOTE | 2024-03-08 08:09 | CON.GI ---
Consultation
-
Date/Time Consultation Performed: 03/08/24
Performing Provider: Avery Kendall MD
Reason for Consultation: Elevated LFT
Medical History
Chief Complaint / HPI
Chief Complaint: SOB, diarrhea
History of Present Illness:
The patient is a 53-year-old male with past medical history as noted presents to the emergency room with increasing fatigue, shortness of breath and diarrhea. He was in his usual state of health until about a week ago when he started initially with
profuse watery, nonbloody diarrhea. He had some mild abdominal cramps related to this. The diarrhea persisted and then started develop significant fatigue, weakness, dyspnea on exertion and shortness of breath. Upon presentation to the emergency
room he was found to have a markedly elevated proBNP as well as mildly elevated troponins, and new A-fib with RVR. He denies any other significant abdominal pain around this time. Has no history of liver issues or family history of liver issues.
He states that he does drink on occasion during the carlin though has not had a drink recently. He denies any Tylenol containing compounds. He denies any new medications or herbal supplements. He is feeling a bit better this morning with less
dyspnea.
Past Medical History
Past Medical History: None
Past Surgical History: None
Social History
Tobacco: Smoker
Alcohol: Occasional
Family History
Family History: Reviewed & Not Pertinent
Allergies / Home Medications
Allergy/AdvReac Type Severity Reaction Status Date / Time
No Known Allergies Allergy Unverified 03/07/24 16:08
�Medication �Instructions �Recorded
No Meds [No Current Medications] 03/07/24
Review of Systems
-
All other systems: A 12 pt ROS was Negative except as stated above in HPI
Vital Signs
Temp Pulse Resp BP Pulse Ox
97.7 F 114 25 105/83 93
03/08/24 07:10 03/08/24 07:00 03/08/24 07:00 03/08/24 07:00 03/08/24 07:00
Physical Exam
Exam
General: NAD
HEENT: MMM, anicteric, no lymphadenopathy, positive JVD with HJR
Heart: Regular, no murmurs
Lungs: CTA bilaterally
Abdomen: normal bowel sounds, soft, no tenderness, no rebound or guarding, no masses, bruits or ascites, positive HJR
Extremeties: no edema
Skin: no rashes
Results
WBC 8.6 10^3/uL (4.8-10.8) 03/08/24 03:56
Hgb 12.9 g/dL (13.0-18.0) L 03/08/24 03:56
Hct 36.4 % (39.0-52.0) L 03/08/24 03:56
MCV 96.8 fL (80.0-94.0) H 03/08/24 03:56
Plt Count 264 10^3/uL (130-400) 03/08/24 03:56
Absolute Neuts (auto) 6.5 10^3/uL (1.4-6.5) 03/07/24 16:18
PT 22.9 Sec (11.4-14.6) H 03/07/24 17:09
INR 2.04 03/07/24 17:09
APTT 29.3 Sec (23.4-35.0) 03/08/24 03:56
Sodium 129 mmol/L (135-145) L 03/08/24 03:56
Potassium 5.1 mmol/L (3.5-5.1) 03/08/24 03:56
Chloride 98 mmol/L (98-107) 03/08/24 03:56
Carbon Dioxide 17 mmol/L (22-30) L 03/08/24 03:56
BUN 33 mg/dl (9-20) H 03/08/24 03:56
Creatinine 0.8 mg/dL (0.7-1.3) 03/08/24 03:56
Calcium 8.1 mg/dl (8.4-10.2) L 03/08/24 03:56
Total Bilirubin 2.8 mg/dl (0.2-1.3) H 03/07/24 16:18
AST 1277 U/L (17-59) H* 03/07/24 16:18
ALT 597 U/L (0-50) H* 03/07/24 16:18
Alkaline Phosphatase 105 U/L (38-126) 03/07/24 16:18
Lipase 123 U/L (23-300) 03/07/24 16:18
Diagnostic Image Results:
CT:
IMPRESSION:
1. No CTA evidence for a thoracic or abdominal aortic dissection, intramural hematoma, or aneurysm.
2. Cardiomegaly.
3. Moderate emphysema.
4. Bilateral pleural effusions, moderate right and small left.
5. Mild abdominopelvic ascites.
6. Mild hepatomegaly and slight nodularity of the liver contour raising suspicion for the early changes of cirrhosis.
7. Urinary bladder wall thickening for which correlation with a urinalysis is recommended.
Prior GI Procedures:
EGD:
Colonoscopy:
Assessment / Plan
-
1. Elevated LFTs: In a marked necroinflammatory pattern, in the setting of hypotension, tachycardia, with signs of passive congestion with JVD and HJR, acutely likely secondary to passive congestion/low flow. His INR was mildly elevated though he
has admittedly not had much to eat over the past week, and could be more nutritional. CT scan had questionable 'early cirrhosis 'given mild nodularity, though I think that underlying cirrhosis seems less likely. At this point will await hepatitis
panel and alpha-1 antitrypsin, though he is a smoker as well. Will check ultrasound with Dopplers and continue to closely trend LFTs and INR, though no signs of acute liver failure. Await cardiology input, possibly A-fib precipitated by
electrolyte abnormality from diarrhea and dehydration, possible viral cardiomyopathy, other etiologies are not excluded.
-
-
Thank you for consultation and allowing me to participate in the patient's care. Please call the personal financial representative GI physician during the after hours with any questions or concerns.
[2024-03-08 08:17] LABS: ALT (SGPT) 561 U/L (0-50); Albumin 3.3 g/dl (3.5-5.0); Alkaline Phosphatase 89 U/L (38-126); Direct Bilirubin 1.2 mg/dl (0.0-0.4); Total Bilirubin 2.5 mg/dl (0.2-1.3); Total Protein 5.7 g/dl (6.3-8.2)
[2024-03-08] MEDS: LASIX 20 MG IV (10:27)
[2024-03-08 12:31] LABS: AST (SGOT) 1154 U/L (17-59)
[2024-03-08 12:34] LABS: Urine Albumin 1+ (Neg - Trace); Urine Bilirubin 1+ (Negative); Urine Character Clear (Clear); Urine Color Amber; Urine Glucose Negative (Negative); Urine Ketone Trace (Negative); Urine Leukocyte Trace (Negative); Urine Nitrite Negative (Negative); Urine Occult Blood 1+ (Negative); Urine Urobilinogen 2+ (Neg - 1+)
[2024-03-08 12:47] LABS: APTT 28.5 Sec (23.4-35.0)
[2024-03-08 13:02] LABS: Urine Bacteria Moderate (Negative); Urine Mucus Few; Urine Red Blood Cell 0-2 /HPF (0-2)
--- NOTE | 2024-03-08 17:06 | PTCARENOTE ---
pt with pox 96% room air this morning. desatting as low as 84% while asleep. O2 2L replaced this afternoon. Heart rate meeting goals on diltiazem drip 5 mg/hr this am; rates 80's. Weaned to off, heart rate elevated to 1 teens and pt mildly
tachypneic 28-30 @1330. Diltiazem drip resumed at 5mg/hr. A-fib rhythm on telemetry with rates low 100's. b/p stable systolic low 100's-116. continuing to monitor
[2024-03-08] MEDS: HEPARIN 25000 UNITS/250 ML IV (19:18)
[2024-03-08 19:57] LABS: APTT 61.2 Sec (23.4-35.0)
[2024-03-09] VITALS (9 sets, daily range): BP systolic 73–128; BP diastolic 51–108; BMI 23.2
[2024-03-09 03:37] LABS: Hematocrit 37.3 % (39.0-52.0); Hemoglobin 13.3 g/dL (13.0-18.0); Mean Corp Hgb Conc. 35.7 g/dL (33.0-37.0); Mean Corpuscular Hgb 34.1 pg (27.0-31.0); Mean Corpuscular Volume 95.6 fL (80.0-94.0); Mean Platelet Volume 11.2 fL (7.4-10.4); Platelet Count 280 10^3/uL (130-400); Red Cell Dist. Width 13.2 % (11.5-14.5); White Blood Cell Count 12.1 10^3/uL (4.8-10.8)
[2024-03-09 03:50] LABS: APTT 39.2 Sec (23.4-35.0); INR 2.56; PT 27.4 Sec (11.4-14.6)
[2024-03-09 04:00] LABS: Albumin 3.1 g/dl (3.5-5.0); Alkaline Phosphatase 84 U/L (38-126); Blood Urea Nitrogen 44 mg/dl (9-20); Carbon Dioxide 14 mmol/L (22-30); Chloride 95 mmol/L (98-107); Estimated Creatinine Clearance 71 ml/min; Glucose 100 mg/dl (70-99); Potassium 5.3 mmol/L (3.5-5.1); Sodium 125 mmol/L (135-145); Total Bilirubin 2.9 mg/dl (0.2-1.3); Total Protein 5.5 g/dl (6.3-8.2); eGFR > 60.00
[2024-03-09 04:10] LABS: ALT (SGPT) 874 U/L (0-50)
[2024-03-09 04:18] LABS: AST (SGOT) 2047 U/L (17-59)
--- NOTE | 2024-03-09 04:20 | PTCARENOTE ---
Critical c02 of 14. manager call center provider made aware.
--- NOTE | 2024-03-09 04:20 | PTCARENOTE ---
Patient remains in afib on the cardizem and heparin gtt. 2 liters NC placed while asleep.
--- NOTE | 2024-03-09 04:57 | W.PN.UPDATE ---
Update Note
Progress Note Update
Labs reviewed, K 5.3, NA 125, Co2 14, Anion gap 16meq/L,
will order Lokelma 5mg stat, sodium bicarb 50meq IV push x1
consult Title Officer for Hyponatremia, check Urine osmolarity, Urine Sodium
BMP in 4 hours
Patient had received Lasix 20mg IV for possible hepatic Congestion.
[2024-03-09] MEDS: CARDIZEM 125 IV (05:14)
[2024-03-09] MEDS: LOKELMA 5 GRAM PO (05:15)
[2024-03-09] MEDS: SODIUM BICARBONATE 50 MEQ IV (05:15)
--- NOTE | 2024-03-09 05:30 | PTCARENOTE ---
No acute events overnight. Waiting for bed on telemetry unit. Remained on 2 liters NC overnight.
[2024-03-09 06:27] LABS: Osmolality Urine 635 mOsm/kg (300-900)
[2024-03-09 06:42] LABS: Urine Sodium < 5 mmol/L (30-90)
--- NOTE | 2024-03-09 07:53 | PTCARENOTE ---
Pt AAox3 , Pt walked to BR Heparin at 16ml hr cardizem at 5ml hr. Pt lungs have fine crackles. Pt staes he doesnt feel dizzy but feels exhausted
--- NOTE | 2024-03-09 08:14 | W.PN.GI.CBS2 ---
Today's Communication / Plan
-
Please see assessment and plan for details.
Assessment / Plan
-
1. Elevated LFTs: In a marked necroinflammatory pattern, in the setting of hypotension, tachycardia, with signs of passive congestion with JVD and HJR, acutely likely secondary to passive congestion/low flow, though other etiologies including acute
viral hepatitis are still possible. His INR was mildly elevated though he has admittedly not had much to eat over the past week, and could be more nutritional. Ultrasound with Dopplers did also suggest changes of possible cirrhosis, correlating
with CT scan. It is concerning that his LFTs and INR are higher today, though again his INR is likely multifactorial with decreased nutrition and possible underlying cirrhosis. He has no signs of confusion. He still has JVD on exam, and has had
relative hypotension. At this point we will continue supportive care, await hepatitis panel, as his history could be consistent with acute hepatitis A or B in the setting of underlying cirrhosis. Alpha-1 antitrypsin is also pending. If these are
negative we will check labs for other underlying liver disease and other possible viral hepatitis. If his INR and LFTs do not jer then we will have to consider transfer to tertiary center. Continue care per cardiology, did receive Lasix
yesterday with electrolyte abnormality today, though still has JVD on exam. No pericardial effusion was noted on CT angiogram.
Subjective
Subjective
Date of Service: March 09, 2024
Patient feeling okay, no significant changes, still feels somewhat dyspneic, did have some abdominal cramps after eating, though no diarrhea, no bleeding, no vomiting.
Objective
Data Reviewed
Laboratory Data:
Laboratory Results
03/09/24 03:06
Laboratory Results
PT 27.4 Sec (11.4-14.6) H 03/09/24 03:06
INR 2.56 03/09/24 03:06
APTT 39.2 Sec (23.4-35.0) H 03/09/24 03:06
Magnesium Cancelled 03/07/24 16:53
Total Bilirubin 2.9 mg/dl (0.2-1.3) H 03/09/24 03:06
AST 2047 U/L (17-59) H* 03/09/24 03:06
ALT 874 U/L (0-50) H* 03/09/24 03:06
Alkaline Phosphatase 84 U/L (38-126) 03/09/24 03:06
Lipase 123 U/L (23-300) 03/07/24 16:18
Vital Signs and I&O:
Vital Signs
Temp Pulse Resp BP Pulse Ox
97.6 F 102 19 107/87 94
03/09/24 03:25 03/09/24 07:00 03/09/24 07:00 03/09/24 06:00 03/09/24 07:00
I&O
03/08/24 03/09/24 03/10/24
06:59 06:59 06:59
Intake Total 200 / 200 900 / 900
Output Total 150 / 150
Balance 50 / 50 900 / 900
Physical Exam
Physical Exam
General: NAD, positive JVD with HJR
Abdomen: normal bowel sounds, soft, no tenderness, no masses or bruits, no ascites
--- NOTE | 2024-03-09 08:24 | W.CON.NEPH ---
Addendum entered and electronically signed by Juan A Mccoy MD 03/09/24 08:44:
There would also be a likely component of evolving contrast nephropathy with contrast exposure in setting of hypotension
Original Note:
Consultation
-
Date/Time Consultation Requested: 03/09/24799
Date/Time Consultation Performed: 03/09/24799
Requesting Provider: Dr. Dueñas
Performing Provider: Dr. Mccoy
Reason for Consultation: hyponatremia
Medical History
-
Chief Complaint: Palpitations diarrhea
History of Present Illness:
This is a 53-year-old gentleman who has no significant medical issues as he has not received medical care previously who presented after development of abdominal pain diarrhea and palpitations for the last week. He get an appointment with a primary
care physician and was recommended that he go to the emergency room which she ultimately did. In the ER he was noted to be in rapid atrial fibrillation and hypotensive. He underwent CT scan with IV contrast which suggested the possibility of a
nodular liver. His LFTs were extremely elevated. His heart rate is being controlled with diltiazem. Today his electrolytes have worsened with a sodium level of 125, potassium 5.3, bicarbonate 14, creatinine 1.2.
Past Medical History
None
Social History
Tobacco: Smoker
Alcohol: Occasional
Family History
Family History: Not Pertinent
Allergies / Home Medications
Allergy/AdvReac Type Severity Reaction Status Date / Time
No Known Allergies Allergy Unverified 03/07/24 16:08
�Medication �Instructions �Recorded �Confirmed �Type
No Meds [No Current Medications] 03/07/24 03/07/24 History
Review of Systems
-
Diarrhea is improving. No abdominal pain currently no issues with urine output. Oral intake has been fine.
All other systems: Negative unless noted
Physical Exam
Vital Signs
Vital Signs
Temp Pulse Resp BP Pulse Ox
97.6 F 102 19 107/87 94
03/09/24 03:25 03/09/24 07:00 03/09/24 07:00 03/09/24 06:00 03/09/24 07:00
Lab Results
WBC 12.1 10^3/uL (4.8-10.8) H 03/09/24 03:06
RBC 3.90 10^6/uL (4.70-6.10) L 03/09/24 03:06
Hgb 13.3 g/dL (13.0-18.0) 03/09/24 03:06
Hct 37.3 % (39.0-52.0) L 03/09/24 03:06
Plt Count 280 10^3/uL (130-400) 03/09/24 03:06
eGFR > 60.00 03/09/24 03:06
Jnw-I-Kimnaagnlel Pept 6310 pg/ml 03/07/24 16:18
Albumin 3.1 g/dl (3.5-5.0) L 03/09/24 03:06
Laboratory Tests
03/08/24 03/09/24 03/09/24
12:08 03:06 06:07
AST 2047 H*
ALT 874 H*
Ur Specific [place] 1.020
Urine Osmolality 635
Urine Sodium < 5 L
Physical Exam
Patient is awake alert oriented and in no distress. Mood and affect were pleasant, insight and judgment were good. Pupils are equal round and reactive to light, extraocular movements are intact, sclera were anicteric. Hearing was normal, ears and
nose are intact. Oropharynx was clear. Neck was supple with trachea midline and no thyromegaly. Heart was regular rate and rhythm without rubs. Lower extremities without edema. Lungs were clear to auscultation bilaterally and with normal
excursion. Abdomen was soft, nontender, with normal active bowel sounds, and no hepatosplenomegaly. Skin was without rash and with normal turgor.
Data Reviewed
-
Radiology: Image Personally Visualized and interpreted (Chest x-ray on 03/07/2024 by my reading shows mild cardiomegaly, bilateral effusion)
CT Scan: Report Reviewed by me (CT scan with IV contrast 03/07/2024 shows nodular liver, pleural effusion, emphysematous changes in the lungs, mild ascites, normal kidneys)
Medical Tests (Nuc Med, Echo etc): Image Personally Visualized and interpreted (EKG on 03/08/2024 by my read shows atrial fibrillation prolonged QT)
Labs: Labs Reviewed by me
Old Records: Reviewed
Assessment/Plan
-
Assessment
Diarrhea
Elevated LFTs
Atrial fibrillation rapid ventricular rate
Hyponatremia
hyperkalemia
metabolic acidosis
Hypotension
Plan
Check cortisol
Medical management potassium
Serial BMP
IV fluids with bicarbonate
Check stool studies
Follow LFTs
[2024-03-09] MEDS: SODIUM BICARBONATE 1150 MEQ IV ×2 (08:25→21:08)
[2024-03-09] MEDS: SODIUM BICARBONATE 650 MG PO ×3 (08:25→21:08)
--- NOTE | 2024-03-09 10:10 | CM ---
Met with patient and at bedside; initial assessment completed
Pharmacy verified: [facility] @ [address] [place] [address]
Patient and live in a 2 story home; 3 steps to enter; 12 steps to 2nd floor; inside railing present; full bathroom on the 1st floor; tub w/shower
PLOF: reported he was independent with ambulation, ADLs; SOB going stairs the last week
DME: none
SNF/Home Health utilization history: none
will transport home
Plan: discharge to home when medically stable; CM will monitor for need/services
--- NOTE | 2024-03-09 10:20 | PTCARENOTE ---
2 DECHO in progress
[2024-03-09] MEDS: HEPARIN 25000 UNITS/250 ML IV (10:49)
[2024-03-09 11:14] LABS: Blood Urea Nitrogen 47 mg/dl (9-20); Calcium 8.3 mg/dl (8.4-10.2); Carbon Dioxide 16 mmol/L (22-30); Chloride 93 mmol/L (98-107); Estimated Creatinine Clearance 85 ml/min; Glucose 125 mg/dl (70-99); Potassium 4.8 mmol/L (3.5-5.1); Sodium 124 mmol/L (135-145); eGFR > 60.00
[2024-03-09 11:23] LABS: APTT 51.8 Sec (23.4-35.0)
--- NOTE | 2024-03-09 12:20 | W.PN.HOSP.TC ---
Today's Communication/Plan
-
IV Heparin
BB
Follow sodium levels
I will defer diuretic management to nephrology since consulted no
Needs cardiac catheterization when cleared by nephrology
Closely follow liver function tests
Assessment / Plan
Assessment / Plan
53-year-old male presented with abdominal pain diarrhea and palpitations. Diarrhea resolved now.
CT of the chest abdomen ddecxn-Ynsnoqvql-de dissection. Cardiomegaly. Moderate emphysema. Bilateral pleural effusions moderate on the right and small on the left. Mild abdominal pelvic ascites. Mild hepatomegaly with slight nodularity of the
liver raising suspicion for early stage of cirrhosis. Urinary bladder wall thickening
EKG reviewed by me-atrial fibrillation with rapid rate, pulmonary disease pattern septal infarct
Doppler of the liver-slow flow in the main portal vein. Main portal vein is patent with normal direction. Waveforms in the portal and hepatic veins suggest cirrhosis. Hepatic artery patent. Bilateral pleural effusions small to moderate ascites.
Sludge in the gallbladder. Gallbladder wall thickening nonspecific. Hepatomegaly. Nodular external contour of the liver compatible with cirrhosis. Slightly enlarged lymph nodes in the peripancreatic and periportal region likely reactive
Echo 03/09/2024-LV mildly dilated. Severely reduced EF. 20 to 25%. Global hypokinesis. Mild to moderate MR. RV dilated
Patient was seen earlier today. Late documentation. No complaints
Awake alert
Cardiovascular system S1-S2 appreciated systolic murmur at apex
Chest bilateral rales and base decreased breath sounds
Abdomen soft and nontender, no right upper quadrant tenderness
No pedal edema
# Acute hypoxic respiratory insufficiency-likely secondary to CHF
# Atrial fibrillation-new diagnosis with rapid ventricular response
IV heparin
Echo-done today's shows EF of 25%
Diltiazem discontinued and changed to metoprolol XL 50 mg daily
Farxiga also started
Cannot start Arni or MRA secondary to hypotension And relatively high potassium
Normal TSH
# Acute HFrEF
Volume overload with pleural effusions on imaging
Cardiomegaly noted on x-ray
Echo as above-EF 25%
Since nephrology is consulted I will defer diuresis to nephrology
See that IV fluids are ordered
# Hypokalemia-resolved
# Hyperkalemia resolved
# Hyponatremia likely hypervolemic. Nephrology consulted
# metabolic acidosis-p.o. bicarb ordered
# Elevated troponin-Type unknown. Trending down likely nonischemic myocardial injury-pending echo
# Abnormal LFTs- ? Shock Liver.
Alpha 1 antitrypsin-pending
Hepatitis panel pending
CT and ultrasound suggestive of cirrhosis
Patient states that he drinks alcohol only during summer and that too rarely.
GI evaluation
Elevated INR noted
If not improving may need transfer to tertiary center
# Coagulopathy- INR of 2 - related to liver disease
# Urinary bladder wall thickening-outpatient urology evaluation
# Moderate emphysema-smoking cessation advised. Needs PFTs as outpatient. Alpha-1 antitrypsin level pending
# Active smoker-cessation counseling
# DVT prophylaxis-IV heparin
# Full code
Discussed with GI, cardiology nephrology
Discussed with nursing
Discussed with patient's at bedside in detail reviewed LFTs, heart disease
Patient is very sick even though he looks better in person than his labs and imaging
Time spent over 52 minutes
Anticipated Discharge: > 48 hours
Subjective/Interval History
-
Date of Service: March 09, 2024
Objective Data
-
Labs:
Laboratory Results
03/09/24 03/09/24 03/09/24
03:06 10:48 17:30
WBC 12.1 H
Hgb 13.3
Hct 37.3 L
Plt Count 280
PT 27.4 H
INR 2.56
APTT 39.2 H 51.8 H Pending
Sodium 125 L 124 L
Potassium 5.3 H 4.8
Chloride 95 L 93 L
Carbon Dioxide 14 L* 16 L
BUN 44 H 47 H
Creatinine 1.2 1.0
Glucose 100 H 125 H
Calcium 8.0 L 8.3 L
Total Bilirubin 2.9 H
AST 2047 H*
ALT 874 H*
Alkaline Phosphatase 84
Vital Signs:
Vital Signs
Temp Pulse Resp BP Pulse Ox
98.0 F 98 28 107/87 91
03/09/24 07:15 03/09/24 10:00 03/09/24 10:00 03/09/24 06:00 03/09/24 10:00
I&O
03/08/24 03/09/24 03/10/24
06:59 06:59 06:59
Intake Total 200 / 200 900 / 900
Output Total 150 / 150
Balance 50 / 50 900 / 900
[2024-03-09] MEDS: FARXIGA 10 MG PO (12:48)
[2024-03-09] MEDS: TOPROL XL 50 MG PO (12:49)
--- NOTE | 2024-03-09 14:02 | W.PN.CD ---
Today's Communication / Plan
-
tentative plan for R/LHC tomorrow, but need to check INR trend first
cont heparin drip
start Toprol XL, farxiga
Impression / Plan
-
New cardiomyopathy
-dilated LV, severely depressed LVEF 20-25%, also with RV dysfunction; mild/moderate MR
-compensated on exam, although abnl LFT raise question of hepatic congestion
-start Toprol XL and farxiga
-hold on entresto and aldactone for now, with recent hyperkalemia noted (re-assess before discharge)
-tentative plan for R/LHC tomorrow, but need to check INR trend first
-if progressive signs of liver failure, GI has discussed transfer to higher level of care
Atrial fibrillation with rapid ventricular response
-change diltiazem to Toprol XL given cardiomyopathy
-eventual rhythm control
-Anticoagulation: Heparin drip for now
-[id number]: score 1
Abnormal troponin, likely nonischemic myocardial injury in the setting of tachyarrhythmia and cardiomyopathy
-Peak troponin was on arrival, 0.343
-Denies chest pain
Severely Abnormal LFT's
-GI consult: hepatic congestion vs primary liver etiology
Current smoker, cessation recommended
Physical Exam
Vital Signs/Labs
Vital Signs
Temp Pulse Resp BP Pulse Ox
98.0 F 114 31 102/77 91
03/09/24 07:15 03/09/24 12:53 03/09/24 12:53 03/09/24 12:53 03/09/24 12:53
03/08/24 03/09/24 03/10/24
06:59 06:59 06:59
Actual Weight 72.6 kg 71.2 kg
03/09/24 03:06
03/09/24 12:32
PT 27.4 Sec (11.4-14.6) H 03/09/24 03:06
INR 2.56 03/09/24 03:06
APTT 51.8 Sec (23.4-35.0) H 03/09/24 10:48
Magnesium Cancelled 03/07/24 16:53
Triglycerides 85 mg/dl (10-149) 03/08/24 03:56
LDL Cholesterol, Calc 95 mg/dl 03/08/24 03:56
VLDL Cholesterol, Calc 17 mg/dl (0-30) 03/08/24 03:56
HDL Cholesterol 15 mg/dl 03/08/24 03:56
03/07/24
16:18
Jsf-F-Fboycnxrmdw Pept 6310
LAB Results
03/07/24 03/07/24 03/07/24
16:53 20:51 22:43
Troponin I 0.343 H* Cancelled 0.293 H*
03/08/24 03/08/24
03:56 11:00
Troponin I 0.239 H* Cancelled
Physical Exam
Constitutional: No acute distress and Comfortable
EENT: Moist mucous membranes
Cardiovascular: Rhythm/rate is irregular, Pedal edema present, JVD present and Systolic murmur present
Respiratory: Respiratory effort normal and Lungs clear to auscul.
Neuro/Psych: AO x 3
Data Reviewed
-
Date of Service: March 09, 2024
EKG: Other (A fib avg HR ~100)
Echo: Tracing Personally Visualized and interpreted (per note)
Labs: Labs Reviewed by me
[2024-03-09 18:17] LABS: APTT 97.5 Sec (23.4-35.0)
[2024-03-09 22:57] LABS: Alpha-1-Antitrypsin 239 mg/dL (90-200)
[2024-03-09 23:49] LABS: APTT > 200 Sec (23.4-35.0)
[2024-03-10] VITALS (20 sets, daily range): BP systolic 72–120; BP diastolic 28–93; BMI 24.2
[2024-03-10] MEDS: HEPARIN 25000 UNITS/250 ML IV (03:04)
[2024-03-10 04:29] LABS: PT 25.2 Sec (11.4-14.6)
[2024-03-10 04:37] LABS: ALT (SGPT) 705 U/L (0-50); Alkaline Phosphatase 82 U/L (38-126); Blood Urea Nitrogen 43 mg/dl (9-20); Calcium 7.8 mg/dl (8.4-10.2); Carbon Dioxide 23 mmol/L (22-30); Chloride 90 mmol/L (98-107); Estimated Creatinine Clearance 107 ml/min; Glucose 94 mg/dl (70-99); Potassium 4.4 mmol/L (3.5-5.1); Sodium 123 mmol/L (135-145); Total Bilirubin 2.4 mg/dl (0.2-1.3); Total Protein 5.3 g/dl (6.3-8.2); eGFR > 60.00
[2024-03-10 04:44] LABS: AST (SGOT) 1420 U/L (17-59)
--- NOTE | 2024-03-10 04:45 | PTCARENOTE ---
NO acute events overnight. Remains on heparin gtt and 3 liters NC. Next PTT due at 0815.
--- NOTE | 2024-03-10 06:39 | W.PN.GI.CBS2 ---
Today's Communication / Plan
-
Please assessment plan for details.
Assessment / Plan
-
1. Elevated LFTs: In a marked necroinflammatory pattern, in the setting of hypotension, tachycardia, with signs of passive congestion with JVD and HJR, acutely likely secondary to passive congestion/low flow, though other etiologies including acute
viral hepatitis are still possible. His INR was mildly elevated though he has admittedly not had much to eat over the past week, and could be more nutritional. Ultrasound with Dopplers did also suggest changes of possible cirrhosis, correlating
with CT scan. His LFTs and INR are improved today, no signs of encephalopathy. At this point we will continue supportive care, await hepatitis panel, as his history could be consistent with acute hepatitis A or B in the setting of underlying
cirrhosis. Alpha-1 antitrypsin is negative. If these are negative we will check labs for other underlying liver disease and other possible viral hepatitis and other follow-up as an outpatient. If his INR and LFTs do not continue to jer then we
will have to consider transfer to tertiary center.
Subjective
Subjective
Date of Service: March 10, 2024
Patient feeling about the same, overall doing okay, stable dyspnea, no abdominal pain, nausea or vomiting. Still with episodes of hypotension overnight.
Objective
Data Reviewed
Laboratory Data:
Laboratory Results
03/09/24 03:06
03/10/24 03:45
Laboratory Results
PT 25.2 Sec (11.4-14.6) H 03/10/24 03:45
INR 2.30 03/10/24 03:45
APTT > 200 Sec (23.4-35.0) H* 03/09/24 23:09
Magnesium Cancelled 03/07/24 16:53
Total Bilirubin 2.4 mg/dl (0.2-1.3) H 03/10/24 03:45
AST 1420 U/L (17-59) H* 03/10/24 03:45
ALT 705 U/L (0-50) H* 03/10/24 03:45
Alkaline Phosphatase 82 U/L (38-126) 03/10/24 03:45
Lipase 123 U/L (23-300) 03/07/24 16:18
Vital Signs and I&O:
Vital Signs
Temp Pulse Resp BP Pulse Ox
97.3 F 118 23 95/83 91
03/10/24 03:10 03/10/24 06:00 03/10/24 06:00 03/10/24 06:00 03/10/24 06:00
I&O
03/08/24 03/09/24 03/10/24
06:59 06:59 06:59
Intake Total 200 / 200 900 / 900 1760 / 1760
Output Total 150 / 150 750 / 750
Balance 50 / 50 900 / 900 1010 / 1010
Physical Exam
Physical Exam
General: NAD
Abdomen: normal bowel sounds, soft, no tenderness, no masses or bruits, no ascites
[2024-03-10] MEDS: LOW STRENGTH ASPIRIN 324 MG PO (07:52)
[2024-03-10] MEDS: TOPROL XL 50 MG PO (07:52)
--- NOTE | 2024-03-10 07:52 | W.PN.CD ---
Today's Communication / Plan
-
NPO after breakfast with plan for likely cath this afternoon
Impression / Plan
-
New cardiomyopathy
-dilated LV, severely depressed LVEF 20-25%, also with RV dysfunction; mild/moderate MR
-compensated on exam, although abnl LFT raise question of hepatic congestion
-cont. metop succinate and dapa; additional GDMT limited by blood pressure and hyperkalemia, will assess
-mild crackles on exam, otherwise examines euvolemic and developed metabolic acidosis and hyperkalemia requiring bicarbonate with diuresis over the weekend, so will hold and additional diuresis pending RHC
-tentative plan for R/LHC this afternoon
-if progressive signs of liver failure, GI has discussed transfer to higher level of care
Atrial fibrillation with rapid ventricular response
-cont. rate control with metoprolol succinate
-eventual rhythm control
-Anticoagulation: Heparin drip for now, will switch to DOAC pre-discharge
-[id number]: score 1
Abnormal troponin, likely nonischemic myocardial injury in the setting of tachyarrhythmia and cardiomyopathy
-Peak troponin was on arrival, 0.343
-Denies chest pain
Severely Abnormal LFT's
-GI consult: hepatic congestion vs primary liver etiology
Current smoker, cessation recommended
Physical Exam
Vital Signs/Labs
Vital Signs
Temp Pulse Resp BP Pulse Ox
36.3 C 118 23 95/83 91
03/10/24 03:10 03/10/24 06:00 03/10/24 06:00 03/10/24 06:00 03/10/24 06:00
03/09/24 03/10/24 03/11/24
06:59 06:59 06:59
Actual Weight 71.2 kg 74.3 kg
03/09/24 03:06
03/10/24 03:45
PT 25.2 Sec (11.4-14.6) H 03/10/24 03:45
INR 2.30 03/10/24 03:45
APTT > 200 Sec (23.4-35.0) H* 03/09/24 23:09
Magnesium Cancelled 03/07/24 16:53
Triglycerides 85 mg/dl (10-149) 03/08/24 03:56
LDL Cholesterol, Calc 95 mg/dl 03/08/24 03:56
VLDL Cholesterol, Calc 17 mg/dl (0-30) 03/08/24 03:56
HDL Cholesterol 15 mg/dl 03/08/24 03:56
03/07/24
16:18
Roh-Q-Chbkhritkat Pept 6310
LAB Results
03/07/24 03/07/24 03/07/24
16:53 20:51 22:43
Troponin I 0.343 H* Cancelled 0.293 H*
03/08/24 03/08/24
03:56 11:00
Troponin I 0.239 H* Cancelled
Physical Exam
Constitutional: No acute distress and Comfortable
Cardiovascular: Pedal edema is absent, Systolic murmur absent, Diastolic murmur absent and Rhythm/rate is irregular
Respiratory: Respiratory effort normal and Crackles Present
Neuro/Psych: Alert, Oriented and AO x 3
Data Reviewed
-
Date of Service: March 10, 2024
Medical Decision Making: Reviewed Test Results
EKG: Tracing Personally Visualized and interpreted
Echo: Tracing Personally Visualized and interpreted
X-Ray/CT/US/MRI/NUC/PET: Image Personally Visualized and interpreted
Labs: Labs Reviewed by me
[2024-03-10] MEDS: SODIUM BICARBONATE 650 MG PO ×3 (07:53→21:05)
[2024-03-10] MEDS: FARXIGA 10 MG PO (07:53)
[2024-03-10 08:43] LABS: APTT 151.5 Sec (23.4-35.0)
--- NOTE | 2024-03-10 09:07 | PTCARENOTE ---
Pt AAOIx3 heparin gtt on hold for1 hr due to PTT assesment, Iv fluids dc Ot eating breakfast will be NPO for lunch for poss cardiac cath later in the day. Pt in good spirits
--- NOTE | 2024-03-10 11:20 | W.PN.NEPH.PH ---
Today's Communication / Plan
-
low dose samsca
Assessment/Plan
-
Assessment
Diarrhea
Elevated LFTs
Atrial fibrillation rapid ventricular rate
Hyponatremia
hyperkalemia
metabolic acidosis
Hypotension
Plan
Hyponatremia-felt to be hypovolemia vs cardiorenal
sodium decreasing with IVF , pending cortisol
TSH is normal
Met acidosis is better, off IVF now
rales on exam and wt increasing
low dose lasix , prn samsca
for cath today per cards, cr better 0.8
improving LFTs
BPs are soft on bb, also started on Farxiga
d/w primary and cards
d/w pt
-
-
Date of Service: March 10, 2024
CC / HPI / ROS
-
Chief Complaint:
Hypoantremia, met acidosis
History of Present Illness:
sodium down to 123
met acidosis is better at 23
LFTs improving
no fever
wt increasing
BP remains soft
Review of Systems:
no cp or sob
feels fine
no dizziness
Labs
-
Labs:
WBC 12.1 10^3/uL (4.8-10.8) H 03/09/24 03:06
RBC 3.90 10^6/uL (4.70-6.10) L 03/09/24 03:06
Hgb 13.3 g/dL (13.0-18.0) 03/09/24 03:06
Hct 37.3 % (39.0-52.0) L 03/09/24 03:06
Plt Count 280 10^3/uL (130-400) 03/09/24 03:06
Sodium 123 mmol/L (135-145) L 03/10/24 03:45
Potassium 4.4 mmol/L (3.5-5.1) 03/10/24 03:45
Chloride 90 mmol/L (98-107) L 03/10/24 03:45
Carbon Dioxide 23 mmol/L (22-30) 03/10/24 03:45
BUN 43 mg/dl (9-20) H 03/10/24 03:45
Creatinine 0.8 mg/dL (0.7-1.3) 03/10/24 03:45
eGFR > 60.00 03/10/24 03:45
Glucose 94 mg/dl (70-99) 03/10/24 03:45
Calcium 7.8 mg/dl (8.4-10.2) L 03/10/24 03:45
Piy-X-Okngldgrthu Pept 6310 pg/ml 03/07/24 16:18
Albumin 3.0 g/dl (3.5-5.0) L 03/10/24 03:45
Physical Exam
-
Vital Signs:
Vital Signs
Temp Pulse Resp BP Pulse Ox
98.2 F 95 23 95/83 92
03/10/24 07:28 03/10/24 07:52 03/10/24 06:00 03/10/24 07:52 03/10/24 08:00
Cardiovascular:: Regular rate and rhythm
Respiratory:: Bilateral: Rales
Lung Excursion:: Normal
Abdomen:: Nontender and Soft
Extremity Edema:: None: Bilateral:
Vera Catheter: No
--- NOTE | 2024-03-10 11:53 | CM ---
Addendum entered by Tayler Medina RN 03/10/24 13:31:
Message from Dr Stanford; will probably prescribe eliquis and farxiga.
Met with patient and ; provided Eliquis $10 card, Farxiga zero copay card.
Plan home.
Original Note:
Patient with Dx HF, new Afib with RVR. Plan heart cath today. Room air. Receiving Heparin gtt, Farxiga.
CM Consult: Alanis check Eliquis (apixaban), Jardiance & Farxiga.
Spoke with pharmacist, [facility];
each med would have $20/month copay.
Spoke with patient, who agrees with cost of the 3 meds above.
Offered to provide copay cards for whichever of these are ordered.
Message to Dr Stanford, Dorcas Donohue [employer], Dr Dueñas, Resident Garrett re; alanis check.
Plan provide Farxiga copay card.
Plan home.
--- NOTE | 2024-03-10 12:10 | W.PN.HOSP.TC ---
Addendum entered and electronically signed by Mavis Dueñas MD 03/10/24 12:35:
53-year-old male presented with abdominal pain diarrhea and palpitations. Diarrhea resolved now.
I personally performed a history and physical exam of the patient and discussed management with the resident. I reviewed the resident's note and agree with the documented findings and plan of care HPI/CC except changes in my documentation.
CT of the chest abdomen udhzlo-[id number]-et dissection. Cardiomegaly. Moderate emphysema. Bilateral pleural effusions moderate on the right and small on the left. Mild abdominal pelvic ascites. Mild hepatomegaly with slight nodularity of the
liver raising suspicion for early stage of cirrhosis. Urinary bladder wall thickening
Doppler of the liver-slow flow in the main portal vein. Main portal vein is patent with normal direction. Waveforms in the portal and hepatic veins suggest cirrhosis. Hepatic artery patent. Bilateral pleural effusions small to moderate ascites.
Sludge in the gallbladder. Gallbladder wall thickening nonspecific. Hepatomegaly. Nodular external contour of the liver compatible with cirrhosis. Slightly enlarged lymph nodes in the peripancreatic and periportal region likely reactive
Echo 03/09/2024-LV mildly dilated. Severely reduced EF. 20 to 25%. Global hypokinesis. Mild to moderate MR. RV dilated
Awake alert
Cardiovascular system S1-S2 appreciated systolic murmur at apex
Chest bilateral rales and base decreased breath sounds
Abdomen soft and nontender, no right upper quadrant tenderness
No pedal edema
# Acute hypoxic respiratory insufficiency-likely secondary to CHF
# Atrial fibrillation-new diagnosis with rapid ventricular response
IV heparin
Echo-done today's shows EF of 25%
Diltiazem discontinued and changed to metoprolol XL 50 mg daily
Farxiga also started
Cannot start Arni or MRA secondary to hypotension And relatively high potassium
Normal TSH
# Acute HFrEF
Volume overload with pleural effusions on imaging
Echo as above-EF 25%
Since nephrology is consulted I will defer diuresis to nephrology
Elevated troponin-Type unknown. Trending down likely nonischemic myocardial injury-pending echo
For right and left heart cath today
# Hypokalemia-resolved
# Hyperkalemia resolved
# Hyponatremia likely hypervolemic. Nephrology consulted
# metabolic acidosis-Resolved
# Abnormal LFTs- ? Shock Liver.
Alpha 1 antitrypsin-normal
Hepatitis panel pending
CT and ultrasound suggestive of cirrhosis
Patient states that he drinks alcohol only during summer and that too rarely.
Elevated INR noted, trending down
If not improving may need transfer to tertiary center
# Coagulopathy- INR of 2 - related to liver disease
# Urinary bladder wall thickening-outpatient urology evaluation
# Moderate emphysema-smoking cessation advised. Needs PFTs as outpatient. Alpha-1 antitrypsin level pending
# Active smoker-cessation counseling
# DVT prophylaxis-IV heparin
# Full code
Discussed with cardiology nephrology
Discussed with nursing
Original Note:
Today's Communication/Plan
-
Cardiac catheterization today
Assessment / Plan
Assessment / Plan
Assessment
Atrial fibrillation with RVR
Acute HFrEF
New cardiomyopathy
Non-MN troponin elevation
Elevated LFTs
Plan
Atrial fibrillation with RVR
-cont. rate control with metoprolol succinate
-eventual rhythm control
-Anticoagulation with Heparin drip
Acute HFrEF
New cardiomyopathy
-Continue GDMT therapy with metoprolol, Farxiga. Cannot start Arni or MRA secondary to hypotension And relatively high potassium
-Cardiac catheterization today
-Echo 03/10 with EF of 25%
Elevated troponin-Type unknown. Trending down likely nonischemic myocardial injury-pending echo
Elevated LFTs-
-Alpha 1 antitrypsin negative
-Hepatitis panel pending
-CT and ultrasound suggestive of cirrhosis
-Patient states that he drinks alcohol only during summer and that too rarely.
-Elevated INR noted
-If not improving may need transfer to tertiary center
#Hyponatremia, Na decreasing with IVF
# Acute hypoxic respiratory insufficiency-likely secondary to CHF
# Hypokalemia-resolved
# Hyperkalemia resolved
# metabolic acidosis-resolved
# Coagulopathy- INR of 2 - related to liver disease
# Urinary bladder wall thickening-outpatient urology evaluation
# Moderate emphysema-smoking cessation advised. Needs PFTs as outpatient. Alpha-1 antitrypsin level pending
# Active smoker-cessation counseling
# DVT prophylaxis-IV heparin
# Full code
Anticipated Discharge: > 48 hours
Objective Data
-
Labs:
Laboratory Results
03/10/24 03/10/24 03/10/24
03:45 08:18 16:15
PT 25.2 H
INR 2.30
APTT 151.5 H* Pending
Sodium 123 L
Potassium 4.4
Chloride 90 L
Carbon Dioxide 23
BUN 43 H
Creatinine 0.8
Glucose 94
Calcium 7.8 L
Total Bilirubin 2.4 H
AST 1420 H*
ALT 705 H*
Alkaline Phosphatase 82
Vital Signs:
Vital Signs
Temp Pulse Resp BP Pulse Ox
98.2 F 95 23 95/83 92
03/10/24 07:28 03/10/24 07:52 03/10/24 06:00 03/10/24 07:52 03/10/24 08:00
I&O
03/09/24 03/10/24 03/11/24
06:59 06:59 06:59
Intake Total 900 / 900 1760 / 1760
Output Total 750 / 750
Balance 900 / 900 1010 / 1010
Review of Systems
-
All other systems: Reviewed and negative (Except as documented)
Physical Exam
-
General: No Apparent Distress and Comfortable
Cardiac: S1/S2 and Irregular Rhythm
GI: Soft, Nontender, Nondistended and Normal Bowel Sounds
Musculoskeletal: No Edema
Skin: Warm and Dry
Neuro: Awake, Alert, Oriented and AO x 3
Psych: Calm
[2024-03-10] MEDS: LASIX 20 MG IV (12:28)
[2024-03-10 12:54] LABS: Vitamin D, 25-OH*** 16.3 ng/mL (30-80)
--- NOTE | 2024-03-10 13:55 | PTCARENOTE ---
sleep apnea assessment done, spoke with pt re fu with pulmonary for poss sleep apnea
--- NOTE | 2024-03-10 14:29 | PTCARENOTE ---
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
--- NOTE | 2024-03-10 15:20 | PTCARENOTE ---
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 Heparin gtt on hold until 1829.
--- NOTE | 2024-03-10 17:20 | ITS.CL.CATH ---
Associate Chief Nurse - Catheterization
Cardiac Catheterization
Procedure Report:
CARDIAC CATHETERIZATION REPORT
Date of Procedure: 03/10/24
Referring: Dr. Dario Caro MD
Indication: NSTEMI, acute decompensated heart failure with reduced ejection fraction
PROCEDURE:
1. Right heart catheterization
2. Left heart catheterization
3. Coronary angiography
ACCESS:
6 [place] right radial artery
5 [place] right antecubital vein
CATHETERS:
1. 5 [place] balloon wedge
2. 6 [place] JL3.5
3. 6 [place] JR4
HEMODYNAMIC DATA
LV 90/26 (EDP 29) mmHg
AO 100/81 (mean 87) mmHg
RA 23 mmHg
RV 44/20 (EDP 23) mmHg
PA 47/34 (mean 38) mmHg
PCWP 29 mmHg
CO/CI 4.3/2.3 L/min/m2
SVR 1195 dsc*-5
PVR 2.1 Wood Units
CORONARY ANGIOGRAPHY
Dominance: right
LM: large vessel without significant disease.
LAD: gives rise to a small D1 and moderate caliber D2. There is no CAD.
LCx: gives rise to a large OM1/ramus, small OM2, and small LPL branch. There is no CAD.
RCA: gives rise to a large RPDA and moderate caliber RPL branch. There is no CAD.
Closure Device: TR band
Radiation dose (mGy): 341.27
DAP (cm2.Gy): 31.4225
Fluoroscopy time (minutes): 5.1
CONCLUSIONS:
1. Normal coronary arteries in a right dominant system.
2. Elevated biventricular filling pressures with mildly reduced cardiac output.
RECOMMENDATIONS:
1. Expectant management after cardiac catheterization via right approach
2. Workup for etiology of non-ischemic cardiomyopathy
3. Continue heparin for now, eventual NOAC for Afib
4. Discontinue ASA
5. Statin for primary prevention of CAD
6. GDMT for heart failure with reduced ejection fraction as allowed by blood pressure
Copy To: Gregorio Milton MD (PCP)
Signed: Azael Stanford MD, PhD
--- NOTE | 2024-03-10 18:02 | PTCARENOTE ---
Pt bp 78/64, Dr Stanford TT pt is volume overload he needs Lasix
[2024-03-10] MEDS: LASIX 40 MG IV (18:05)
[2024-03-10 20:06] LABS: Hepatitis B Surface Antigen Negative (Negative)
[2024-03-10 20:23] LABS: Hepatitis B Surface Antibody Negative; Hepatitis C Antibody Negative (Negative)
[2024-03-11] VITALS (25 sets, daily range): BP systolic 76–139; BP diastolic 51–117; BMI 24.0
[2024-03-11 00:58] LABS: APTT 99.8 Sec (23.4-35.0)
[2024-03-11] MEDS: HEPARIN 25000 UNITS/250 ML IV ×2 (01:10→17:29)
--- NOTE | 2024-03-11 04:56 | PTCARENOTE ---
Pt AAOx3, heparin gtt remains in place, see worklist documentation. BP low throughout this shift with SBP in 70s at times. Pt denies any symptoms. Unchanged from previous shift. Pt able to void in urinal. Call claudio within reach
[2024-03-11 07:22] LABS: APTT 99.3 Sec (23.4-35.0)
[2024-03-11 07:24] LABS: Hematocrit 37.6 % (39.0-52.0); Hemoglobin 13.5 g/dL (13.0-18.0); Mean Corp Hgb Conc. 35.9 g/dL (33.0-37.0); Mean Corpuscular Hgb 34.5 pg (27.0-31.0); Mean Corpuscular Volume 96.2 fL (80.0-94.0); Mean Platelet Volume 10.9 fL (7.4-10.4); Platelet Count 214 10^3/uL (130-400); Red Blood Cell Count 3.91 10^6/uL (4.70-6.10); White Blood Cell Count 7.4 10^3/uL (4.8-10.8)
--- NOTE | 2024-03-11 07:50 | W.PN.HOSP.TC ---
Addendum entered and electronically signed by Mavis Dueñas MD 03/11/24 13:35:
I personally performed a history and physical exam of the patient and discussed management with the resident. I reviewed the resident's note and agree with the documented findings and plan of care HPI/CC except changes in my documentation
Patient was seen earlier
Patient's mom and other family member was at bedside
He is feeling good not offering any complaints today
Left and right heart cath-03/10/2024-normal coronaries. Wedge pressure 29 mmHg. Elevated bilateral LV filling pressures
Awake alert
Cardiovascular system S1-S2 appreciated systolic murmur at apex
Chest bilateral rales and base decreased breath sounds
Abdomen soft and nontender, no right upper quadrant tenderness
No pedal edema
# Acute hypoxic respiratory insufficiency-likely secondary to CHF
# Atrial fibrillation-new diagnosis with rapid ventricular response
IV heparin to be transitioned to Eliquis
Normal TSH
# Acute HFrEF
Volume overload with pleural effusions on imaging
Echo as above-EF 25%
Since nephrology is consulted I will defer diuresis to nephrology
Elevated troponin-Type unknown. Trending down likely nonischemic myocardial injury
Cath with normal coronaries
This is nonischemic cardiomyopathy
Echo-done today's shows EF of 25%
Diltiazem discontinued and changed to metoprolol XL 50 mg daily
Farxiga also started
Cannot start Arni or MRA secondary to hypotension
Valsartan has been initiated
Closely watch blood pressure with diuresis, beta-blockers and valsartan.
If creatinine goes up this will impact diuresis
Add midodrine
# Hypokalemia-resolved
# Hyperkalemia resolved
# Hyponatremia likely hypervolemic. Lasix.Nephrology managing.
# metabolic acidosis-Resolved
# Abnormal LFTs- ? Shock Liver.
Alpha 1 antitrypsin-normal
Hepatitis panel pending
CT and ultrasound suggestive of cirrhosis
Patient states that he drinks alcohol only during summer and that too rarely.
Elevated INR noted, trending down
# Coagulopathy- INR of 2 - related to liver disease
# Urinary bladder wall thickening-outpatient urology evaluation
# Moderate emphysema-smoking cessation advised. Needs PFTs as outpatient. Alpha-1 antitrypsin level pending
# Active smoker-cessation counseling
# DVT prophylaxis-IV heparin
# Full code
Discussed with cardiology
Discussed with family at bedside
Discussed with nursing
Discussed with nephrology
Time spent more than 50 minutes
Original Note:
Today's Communication/Plan
-
Diuresis today with Lasix 40mg
transition to oral eliquis
Midodrine for BP support
RAVI/Cardioversion tomorrow
Assessment / Plan
Assessment / Plan
Assessment
Atrial fibrillation with RVR
Acute HFrEF
Nonischemic cardiomyopathy
Elevated LFTs
Plan
#Atrial fibrillation with RVR
-cont. rate control with metoprolol succinate
-eventual rhythm control, RAVI/ Cardioversion tomorrow AM
-Anticoagulation- Transition to Apixaban
#Acute HFrEF
#Nonischemic cardiomyopathy
-S/p right/left heart catheterization 03/10 with normal coronary arteries in a right dominant system
-Continue heparin for now, eventual NOAC for Afib
-statin
-Continue GDMT therapy with metoprolol, Farxiga. Cannot start Arni or MRA secondary to hypotension
-Echo 03/10 with EF of 25%
-Diuresis with 40mg IV lasix today
-Midodrine for BP support
Elevated LFTs-
-Alpha 1 antitrypsin negative
-Hepatitis panel pending
-CT and ultrasound suggestive of cirrhosis
-Patient states that he drinks alcohol only during summer and that too rarely.
-Elevated INR noted
-If not improving may need transfer to tertiary center
#Hyponatremia, Na decreasing with IVF
# Acute hypoxic respiratory insufficiency-likely secondary to CHF
# Hypokalemia-resolved
# Hyperkalemia resolved
# metabolic acidosis-resolved
# Coagulopathy- INR of 2 - related to liver disease
# Urinary bladder wall thickening-outpatient urology evaluation
# Moderate emphysema-smoking cessation advised. Needs PFTs as outpatient. Alpha-1 antitrypsin level pending
# Active smoker-cessation counseling
# DVT prophylaxis- Apixaban
# Full code
Anticipated Discharge: > 48 hours
Subjective/Interval History
-
Date of Service: March 11, 2024
Objective Data
-
Labs:
Abnormal Lab Results
03/10/24 03/11/24 03/11/24
03:45 00:38 07:01
RBC 3.91 L
Hct 37.6 L
MCV 96.2 H
MCH 34.5 H
MPV 10.9 H
APTT 99.8 H 99.3 H
Sodium 128 L
Chloride 92 L
BUN 28 H
Creatinine 0.6 L
Calcium 7.8 L
Total Bilirubin 2.2 H
AST 761 H*
ALT 572 H*
Total Protein 5.4 L
Albumin 2.9 L
Vitamin D 25-Hydroxy 16.3 L
Vital Signs:
Vital Signs
Temp Pulse Resp BP Pulse Ox
97.5 F 123 22 110/97 92
03/11/24 03:25 03/11/24 05:25 03/11/24 05:25 03/11/24 05:25 03/11/24 05:25
I&O
03/10/24 03/11/24 03/12/24
06:59 06:59 06:59
Intake Total 1760 / 1760
Output Total 750 / 750 1600 / 1600
Balance 1010 / 1010 -1600 / -1600
Review of Systems
-
All other systems: Reviewed and negative (Except as documented)
Physical Exam
-
General: No Apparent Distress and Comfortable
Respiratory: Crackles (cameron b/l)
Cardiac: S1/S2, Irregular Rhythm and Murmur
GI: Soft, Nontender and Nondistended
Neuro: Awake, Alert, Oriented and AO x 3
Psych: Calm
[2024-03-11 07:53] LABS: ALT (SGPT) 572 U/L (0-50); Albumin 2.9 g/dl (3.5-5.0); Alkaline Phosphatase 83 U/L (38-126); Blood Urea Nitrogen 28 mg/dl (9-20); Calcium 7.8 mg/dl (8.4-10.2); Carbon Dioxide 24 mmol/L (22-30); Chloride 92 mmol/L (98-107); Estimated Creatinine Clearance > 125 ml/min; Glucose 97 mg/dl (70-99); Potassium 3.9 mmol/L (3.5-5.1); Sodium 128 mmol/L (135-145); Total Bilirubin 2.2 mg/dl (0.2-1.3); Total Protein 5.4 g/dl (6.3-8.2); eGFR > 60.00
[2024-03-11] MEDS: TOPROL XL 50 MG PO (07:54)
[2024-03-11] MEDS: FARXIGA 10 MG PO (07:54)
[2024-03-11] MEDS: SODIUM BICARBONATE 650 MG PO (07:55)
[2024-03-11 08:00] LABS: AST (SGOT) 761 U/L (17-59)
--- NOTE | 2024-03-11 08:55 | W.PN.CD ---
Today's Communication / Plan
-
trial low dose valsart, lasix goal 1-2L negative, transition to apixaban, NPO@MN for RAVI/CV tomorrow
Impression / Plan
-
Mr. Robbins is a 53 year old man presenting with new onset heart failure symptoms, found to have a dilated cardiomyopathy with EF 20-25%, Afib w/ RVR, and no coronary artery disease on left heart cath. He is undergoing titration of GDMT and
management of Afib.
# New cardiomyopathy
-initially presented with elevated LFTs and Cr suggesting low output, now improving
-dilated LV, severely depressed LVEF 20-25%, also with RV dysfunction; mild/moderate MR
-cath with elevated filling pressures, mildly reduced CI (2.3), and no CAD
-non-ischemic etiology, possibly tachy mediated in setting of Afib, TSH normal; will obtain additional lab testing (iron studies, HIV, SARAH, metanepherines, B1, carnitine)
-consider cMRI prior to discharge or as outpatient
-describes long standing cardiac issue in father NOS, he will obtain more collateral
-cont. metop succinate and dapa; adding low dose valsart today though limited by BP
-mild crackles on exam, continue diuresis with IV lasix 40 goal 1-2L negative
Atrial fibrillation with rapid ventricular response
-cont. rate control with metoprolol succinate, still poorly controlled
-Anticoagulation: with LFT improvement, transition to DOAC today
-[id number]: score 1
-RAVI and CV tomorrow; if fails would be good candidate for early ablation given HFrEF
Abnormal troponin, likely nonischemic myocardial injury in the setting of tachyarrhythmia and cardiomyopathy
-Peak troponin was on arrival, 0.343
-Denies chest pain
Severely Abnormal LFT's, improving
-GI consult: hepatic congestion vs primary liver etiology
Current smoker, cessation recommended
RHC/LHC 03/10/24
HEMODYNAMIC DATA
LV 90/26 (EDP 29) mmHg
AO 100/81 (mean 87) mmHg
RA 23 mmHg
RV 44/20 (EDP 23) mmHg
PA 47/34 (mean 38) mmHg
PCWP 29 mmHg
CO/CI 4.3/2.3 L/min/m2
SVR 1195 dsc*-5
PVR 2.1 Wood Units
CORONARY ANGIOGRAPHY
Dominance: right
LM: large vessel without significant disease.
LAD: gives rise to a small D1 and moderate caliber D2. There is no CAD.
LCx: gives rise to a large OM1/ramus, small OM2, and small LPL branch. There is no CAD.
RCA: gives rise to a large RPDA and moderate caliber RPL branch. There is no CAD.
TTE 03/10/24
Left ventricle is mildly dilated. Severely reduced left ventricular systolic
function. Left ventricular ejection fraction is 20-25%.
Global hypokinesis.
Mild/moderate mitral regurgitation.
Right ventricle is dilated with reduced systolic function.
Mildly dilated aortic root. Sinus of Valsalva is 4.1 cm.
Physical Exam
Vital Signs/Labs
Vital Signs
Temp Pulse Resp BP Pulse Ox
36.8 C 123 22 110/97 92
03/11/24 08:03 03/11/24 05:25 03/11/24 05:25 03/11/24 05:25 03/11/24 05:25
03/10/24 03/11/24 03/12/24
06:59 06:59 06:59
Actual Weight 74.3 kg 73.7 kg
03/11/24 07:01
03/11/24 07:01
PT 25.2 Sec (11.4-14.6) H 03/10/24 03:45
INR 2.30 03/10/24 03:45
APTT 99.3 Sec (23.4-35.0) H 03/11/24 07:01
Magnesium Cancelled 03/07/24 16:53
Triglycerides 85 mg/dl (10-149) 03/08/24 03:56
LDL Cholesterol, Calc 95 mg/dl 03/08/24 03:56
VLDL Cholesterol, Calc 17 mg/dl (0-30) 03/08/24 03:56
HDL Cholesterol 15 mg/dl 03/08/24 03:56
03/07/24
16:18
Yix-G-Injsfpqbyog Pept 6310
LAB Results
03/08/24
11:00
Troponin I Cancelled
Physical Exam
Constitutional: No acute distress and Comfortable
Cardiovascular: Other (irregular, no murmerse)
Respiratory: Respiratory effort normal and Crackles Present
Neuro/Psych: Alert, Oriented and AO x 3
Data Reviewed
-
Date of Service: March 11, 2024
Medical Decision Making: Reviewed Test Results
EKG: Tracing Personally Visualized and interpreted
Echo: Tracing Personally Visualized and interpreted
X-Ray/CT/US/MRI/NUC/PET: Image Personally Visualized and interpreted
Medical Tests (PFT, Pathology etc): Image Personally Visualized and interpreted
Labs: Labs Reviewed by me and Labs Ordered by me
--- NOTE | 2024-03-11 09:00 | PTCARENOTE ---
Pt AAOx3, heparin gtt remains in place, see worklist documentation. BP continues to be borderline. Pt denies any symptoms. Unchanged from previous shift. Pt able to void in urinal. Call claudio within reach. family at bedside
--- NOTE | 2024-03-11 10:09 | W.PN.GI.CBS2 ---
Addendum entered and electronically signed by Leela Rizzo MD 03/11/24 12:26:
I saw and examined the patient.
The [facility] or PA's note was reviewed and I agree with the note.
Comment:
Pt without any abdominal pain, feels better
abd: soft, nontender
oriented, no encephalopathy
impression:
elevated lfts in the setting of likely cirrhosis
transaminases improving
plan
follow lfts and INR
keep hemodynamics stable
will need outpatient f/u for probable underlying cirrhosis
Original Note:
Today's Communication / Plan
-
Etiology of elevated LFT's secondary to passive congestion for afib/RVR and new cardiomyopathy vs other
cont plan per cardiology as still remains with rapid HR 130's. s/p cath as noted
some improved LF's trend but still with periods of hypotension cont to follow labs with INR
Pt will need OP follow up with elevated LFT's and changes of cirrhosis on imaging
monitor abdominal exam currently only small to moderate ascites -- if increased distention consider paracentesis
hbg stable with heparin gtt
If his INR and LFTs do not continue to improved then we will have to consider transfer to tertiary center.
Assessment / Plan
-
Pt is a 53yo presents without significant medical problems with fatigue, shortness of breath and diarrhea. Upon presentation to the emergency room he was found to have a markedly elevated proBNP as well as mildly elevated troponins, and new A-fib
with RVR with rise in LFT's with also concern for new non ischemic cardiomyopathy with decreased EF 20-25%. Has no history of liver issues or family history of liver issues. He states that he does drink on occasion during the carlin though has
not had a drink recently. He denies any Tylenol containing compounds. He denies any new medications or herbal supplements.
03/08/24- US doppler Slow flow within the main portal vein. The main portal vein is patent with normal direction of flow.Spectral waveforms of the portal vein and hepatic veins suggestive of cirrhosis.
Hepatic artery is visualized and is patent. Bilateral pleural effusions. Small to moderate amount of ascites present. Sludge present within the gallbladder with no shadowing gallstones. Gallbladder wall thickening, nonspecific. Negative sonographic
Ferrer's sign. No evidence for biliary ductal dilation. Hepatomegaly. Nodular external contour of the liver, compatible with cirrhosis. No evidence for a focal hepatic lesion.Slightly enlarged lymph nodes in the peripancreatic and periportal region.
These are most likely reactive inflammatory lymph nodes, commonly seen in this region in association with cirrhosis.
03/07/24 CT Chest/abd/pelvis Angio W/wo
1. No CTA evidence for a thoracic or abdominal aortic dissection, intramural hematoma, or aneurysm.
2. Cardiomegaly.
3. Moderate emphysema.
4. Bilateral pleural effusions, moderate right and small left.
5. Mild abdominopelvic ascites.
6. Mild hepatomegaly and slight nodularity of the liver contour raising suspicion for the early changes of cirrhosis.
7. Urinary bladder wall thickening for which correlation with a urinalysis is recommended.
03/10/24 right heart cath-
1. Normal coronary arteries in a right dominant system.
2. Elevated biventricular filling pressures with mildly reduced cardiac output.
-elevated LFT's
-afib with RVR
-new non ischemic cardiomyopathy with decreased EF 20-25%
-US with changes of cirrhosis
-mild ascites
-b/l effusion
-coagulopathy
-metabolic acidosis on admission
-tobacco abuse
-hyponatremia
PLAN:
Etiology of elevated LFT's secondary to passive congestion for afib/RVR and new cardiomyopathy vs other
cont plan per cardiology as still remains with rapid HR 130's. s/p cath as noted
some improved LF's trend but still with periods of hypotension cont to follow labs with INR
Pt will need OP follow up with elevated LFT's and changes of cirrhosis on imaging
monitor abdominal exam currently only small to moderate ascites -- if increased distention consider paracentesis
hbg stable with heparin gtt
If his INR and LFTs do not continue to improved then we will have to consider transfer to tertiary center.
Subjective
Subjective
Date of Service: March 11, 2024
cholesterol lowering diet, no stools
Objective
Data Reviewed
Laboratory Data:
Laboratory Results
03/11/24 07:01
03/11/24 07:01
Laboratory Results
PT 25.2 Sec (11.4-14.6) H 03/10/24 03:45
INR 2.30 03/10/24 03:45
APTT 99.3 Sec (23.4-35.0) H 03/11/24 07:01
Magnesium Cancelled 03/07/24 16:53
Total Bilirubin 2.2 mg/dl (0.2-1.3) H 03/11/24 07:01
AST 761 U/L (17-59) H* 03/11/24 07:01
ALT 572 U/L (0-50) H* 03/11/24 07:01
Alkaline Phosphatase 83 U/L (38-126) 03/11/24 07:01
Lipase 123 U/L (23-300) 03/07/24 16:18
Vital Signs and I&O:
Vital Signs
Temp Pulse Resp BP Pulse Ox
98.2 F 121 20 101/85 96
03/11/24 08:03 03/11/24 09:00 03/11/24 09:00 03/11/24 07:55 03/11/24 08:00
I&O
03/10/24 03/11/24 03/12/24
06:59 06:59 06:59
Intake Total 1760 / 1760
Output Total 750 / 750 1600 / 1600 300 / 300
Balance 1010 / 1010 -1600 / -1600 -300 / -300
Physical Exam
Physical Exam
HEENT: Anicteric and Moist mucous membranes
Cardiology: Other (tachy)
Pulmonary: Other (decreased bases )
GI: Soft, Non Distended and Non Tender
Neuro: Non Focal
[2024-03-11] MEDS: DIOVAN 40 MG PO (11:30)
[2024-03-11] MEDS: LASIX 40 MG IV (11:30)
--- NOTE | 2024-03-11 11:55 | W.PN.NEPH.PH ---
Today's Communication / Plan
-
cont lasix, decrease po bicarb
Assessment/Plan
-
Assessment
Diarrhea
Elevated LFTs
Atrial fibrillation rapid ventricular rate
Hyponatremia
hyperkalemia
metabolic acidosis
Hypotension
Emphysema noted on CT
early changes of cirrhosis on CT
Plan
Hyponatremia-felt to be cardiorenal, hypervolemia
PCWP was high at 29, normal coronaries on cath 03/10
s/p lasix sodium improving to 128
TSH and cortisol were ok
cont lasix as BP tolerates, monitor daily wts
wean O2 as able
improving LFTs likely from passive congestion however cirrhotic changes on CT/US
BPs are soft on bb, also on Farxiga
midodrine added per primary
hypoalbuminemia-check U PCR
plan CV for afib tomorrow
met acidosis is improving , decrease po bicarb to daily
d/w primary and pt
-
-
Date of Service: March 11, 2024
CC / HPI / ROS
-
Chief Complaint:
Hypoantremia, met acidosis
History of Present Illness:
sodium up at 128
met acidosis is better at 24
LFTs improving
no fever
wt decreasing
BP remains soft, Afib with RVR -variable HR
Review of Systems:
no cp or sob
feels fine
no dizziness
Labs
-
Labs:
WBC 7.4 10^3/uL (4.8-10.8) 03/11/24 07:01
RBC 3.91 10^6/uL (4.70-6.10) L 03/11/24 07:01
Hgb 13.5 g/dL (13.0-18.0) 03/11/24 07:01
Hct 37.6 % (39.0-52.0) L 03/11/24 07:01
Plt Count 214 10^3/uL (130-400) D 03/11/24 07:01
Sodium 128 mmol/L (135-145) L 03/11/24 07:01
Potassium 3.9 mmol/L (3.5-5.1) 03/11/24 07:01
Chloride 92 mmol/L (98-107) L 03/11/24 07:01
Carbon Dioxide 24 mmol/L (22-30) 03/11/24 07:01
BUN 28 mg/dl (9-20) H 03/11/24 07:01
Creatinine 0.6 mg/dL (0.7-1.3) L 03/11/24 07:01
eGFR > 60.00 03/11/24 07:01
Glucose 97 mg/dl (70-99) 03/11/24 07:01
Calcium 7.8 mg/dl (8.4-10.2) L 03/11/24 07:01
Dqd-I-Hgyvtlmbsyc Pept 6310 pg/ml 03/07/24 16:18
Albumin 2.9 g/dl (3.5-5.0) L 03/11/24 07:01
Physical Exam
-
Vital Signs:
Vital Signs
Temp Pulse Resp BP Pulse Ox
98.2 F 123 20 98/80 96
03/11/24 11:20 03/11/24 10:00 03/11/24 10:00 03/11/24 10:00 03/11/24 09:41
Cardiovascular:: Regular rate and rhythm
Respiratory:: Bilateral: Rales
Lung Excursion:: Normal
Abdomen:: Nontender and Soft
Extremity Edema:: None: Bilateral: (trace)
Vera Catheter: No
[2024-03-11] MEDS: ProAmatine 5 MG PO ×2 (12:07→17:18)
[2024-03-11 14:18] LABS: Protein/creatinine Ratio 1.9; Urine Protein 10 mg/dl
--- NOTE | 2024-03-11 14:20 | CM ---
Reviewed the chart notes and spoke with the patient and his spouse at the bedside. Patient anticipates being discharged to home when medically stable with no anticipated needs. CM continues to be available to patient/family and is monitoring
medical plan for needs at discharge.
Plan: Discharge to home when medically stable.
[2024-03-11] MEDS: ELIQUIS 5 MG PO (20:36)
--- NOTE | 2024-03-11 22:11 | PTCARENOTE ---
Addendum entered by Precious Ambriz RN 03/12/24 02:16:
Heparin off, see work list.
Original Note:
Pt able to make needs known. Pt aware of NPO at midnight for RAVI/CV in the AM. Call claudio within reach. Assessment care and vitals as charted.
[2024-03-12] VITALS (30 sets, daily range): BP systolic 81–123; BP diastolic 41–105; BMI 23.3
[2024-03-12 05:51] LABS: INR 1.63; PT 19.2 Sec (11.4-14.6)
[2024-03-12 06:09] LABS: ALT (SGPT) 448 U/L (0-50); AST (SGOT) 490 U/L (17-59); Albumin 2.6 g/dl (3.5-5.0); Alkaline Phosphatase 76 U/L (38-126); Blood Urea Nitrogen 17 mg/dl (9-20); Calcium 7.7 mg/dl (8.4-10.2); Carbon Dioxide 29 mmol/L (22-30); Chloride 94 mmol/L (98-107); Estimated Creatinine Clearance > 125 ml/min; Glucose 98 mg/dl (70-99); Iron 34 ug/dl (49-181); Potassium 3.6 mmol/L (3.5-5.1); Sodium 131 mmol/L (135-145); Total Bilirubin 1.9 mg/dl (0.2-1.3); eGFR > 60.00
[2024-03-12 06:18] LABS: Percent Saturation 12 % (20-50); Total Iron Binding Capacity 263 ug/dl (261-462)
[2024-03-12 06:50] LABS: HIV Combo Negative (Negative)
[2024-03-12] MEDS: ELIQUIS 5 MG PO ×2 (08:00→20:06)
[2024-03-12] MEDS: FARXIGA 10 MG PO (08:00)
[2024-03-12] MEDS: DIOVAN 40 MG PO (08:00)
[2024-03-12] MEDS: SODIUM BICARBONATE 650 MG PO (08:00)
[2024-03-12] MEDS: TOPROL XL 50 MG PO (08:00)
[2024-03-12] MEDS: ProAmatine 5 MG PO ×3 (08:00→17:08)
--- NOTE | 2024-03-12 08:27 | PTCARENOTE ---
Addendum entered by Brandi Joel 03/12/24 10:27:
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 HR remains elevated, afib on tele monitor. BP stable. Satting high 80's on RA, placed on 2L NC. at bedside.
Original Note:
Pt to systems testing laboratory technician via stretcher.
--- NOTE | 2024-03-12 10:01 | W.PN.CD ---
Today's Communication / Plan
-
dig loading
hold valsartan and prioritize bb for now
continue diuresis
Impression / Plan
-
Mr. Robbins is a 53 year old man presenting with new onset heart failure symptoms, found to have a dilated cardiomyopathy with EF 20-25%, Afib w/ RVR, and no coronary artery disease on left heart cath. He is undergoing titration of GDMT and
management of Afib.
# New cardiomyopathy
-initially presented with elevated LFTs and Cr suggesting low output, now improving
-dilated LV, severely depressed LVEF 20-25%, also with RV dysfunction; mild/moderate MR
-cath with elevated filling pressures, mildly reduced CI (2.3), and no CAD
-non-ischemic etiology, possibly tachy mediated in setting of Afib, TSH normal; will obtain additional lab testing (iron studies, HIV, SARAH, metanepherines, B1, carnitine)
- cMRI as outpatient
-describes long standing cardiac issue in father NOS, he will obtain more collateral
-cont. metop succinate and dapa; valsartan added but with soft bp will focus on rate control first
Atrial fibrillation with rapid ventricular response
RAVI attempted but didn't tolerate small amount of anesthesia with drop in bp and oxygen sat
few views obtained showing WILLIAM thrombus remaining of the procedure aborted.
-cont. rate control with metoprolol succinate, will need to add digoxin, will po load now
-Anticoagulation:continue DOAC
-[id number]: score 1---but now with thrombus, will need anticoagulation
-RAVI and CV tomorrow; if fails would be good candidate for early ablation given HFrEF
Abnormal troponin, likely nonischemic myocardial injury in the setting of tachyarrhythmia and cardiomyopathy
-Peak troponin was on arrival, 0.343
-Denies chest pain
Severely Abnormal LFT's, improving
-GI consult: hepatic congestion vs primary liver etiology
Current smoker, cessation recommended
Subjective:
He feeling ok no cp or sob.
RHC/LHC 03/10/24
HEMODYNAMIC DATA
LV 90/26 (EDP 29) mmHg
AO 100/81 (mean 87) mmHg
RA 23 mmHg
RV 44/20 (EDP 23) mmHg
PA 47/34 (mean 38) mmHg
PCWP 29 mmHg
CO/CI 4.3/2.3 L/min/m2
SVR 1195 dsc*-5
PVR 2.1 Wood Units
CORONARY ANGIOGRAPHY
Dominance: right
LM: large vessel without significant disease.
LAD: gives rise to a small D1 and moderate caliber D2. There is no CAD.
LCx: gives rise to a large OM1/ramus, small OM2, and small LPL branch. There is no CAD.
RCA: gives rise to a large RPDA and moderate caliber RPL branch. There is no CAD.
TTE 03/10/24
Left ventricle is mildly dilated. Severely reduced left ventricular systolic
function. Left ventricular ejection fraction is 20-25%.
Global hypokinesis.
Mild/moderate mitral regurgitation.
Right ventricle is dilated with reduced systolic function.
Mildly dilated aortic root. Sinus of Valsalva is 4.1 cm.
Physical Exam
Vital Signs/Labs
Vital Signs
Temp Pulse Resp BP Pulse Ox
97.7 F 108 23 107/90 95
03/12/24 03:21 03/12/24 06:00 03/12/24 06:00 03/12/24 06:00 03/12/24 08:52
03/11/24 03/12/24 03/13/24
06:59 06:59 06:59
Actual Weight 73.7 kg 71.5 kg
03/11/24 07:01
03/12/24 05:20
PT 19.2 Sec (11.4-14.6) H 03/12/24 05:19
INR 1.63 03/12/24 05:19
APTT 99.3 Sec (23.4-35.0) H 03/11/24 07:01
Magnesium Cancelled 03/07/24 16:53
Triglycerides 85 mg/dl (10-149) 03/08/24 03:56
LDL Cholesterol, Calc 95 mg/dl 03/08/24 03:56
VLDL Cholesterol, Calc 17 mg/dl (0-30) 03/08/24 03:56
HDL Cholesterol 15 mg/dl 03/08/24 03:56
03/07/24
16:18
Dxu-W-Fchebipzwuj Pept 6310
Physical Exam
Constitutional: No acute distress
Cardiovascular: Systolic murmur absent, Diastolic murmur absent, Rhythm/rate is irregular and Pedal edema present (1+ bilaterally)
Respiratory: Respiratory effort normal and Crackles Present (bibasilar)
Neuro/Psych: AO x 3
Data Reviewed
-
Date of Service: March 12, 2024
Medical Decision Making: Review of Case with other Provider (Dr Dueñas, will need dig load, william thrombus)
--- NOTE | 2024-03-12 10:24 | W.PN.HOSP.TC ---
Addendum entered and electronically signed by Mavis Dueñas MD 03/12/24 15:07:
I personally performed a history and physical exam of the patient and discussed management with the resident. I reviewed the resident's note and agree with the documented findings and plan of care HPI/CC except changes in my documentation
Patient was seen earlier
Patient's
He is feeling good not offering any complaints today
Left and right heart cath-03/10/2024-normal coronaries. Wedge pressure 29 mmHg. Elevated bilateral LV filling pressures
Awake alert
Cardiovascular system S1-S2 appreciated systolic murmur at apex
Chest bilateral rales and base decreased breath sounds
Abdomen soft and nontender, no right upper quadrant tenderness
No pedal edema
# Acute hypoxic respiratory insufficiency-likely secondary to CHF
# Atrial fibrillation-new diagnosis with rapid ventricular response
Now on Eliquis
Normal TSH
Continue BB, a dose of Dig given
RAVI cardioversion was aborted today because of patient's hypotension, but briefly looking with a RAVI probe cardiology feels there was a thrombus therefore aborted.
# Acute HFrEF
Volume overload with pleural effusions on imaging
Echo as above-EF 25%
Since nephrology is consulted I will defer diuresis to nephrology
Elevated troponin-Type unknown. Trending down likely nonischemic myocardial injury
Cath with normal coronaries
This is nonischemic cardiomyopathy
Echo-shows EF of 25%
Continue metoprolol XL 50 mg daily
Farxiga also started
Cannot start Arni or MRA secondary to hypotension
Hold Valsartan .I think we should wait till his HR is better controlled and he is better diuresed to start this.
Added midodrine
# Hypokalemia-resolved
# Hyperkalemia resolved
# Hyponatremia likely hypervolemic. Lasix held 03/12/24
# metabolic acidosis-Resolved
# Abnormal LFTs- ? Shock Liver.
Alpha 1 antitrypsin-normal
Hepatitis panel pending
CT and ultrasound suggestive of cirrhosis
Patient states that he drinks alcohol only during summer and that too rarely.
Elevated INR noted, trending down
# Coagulopathy- resolving. - related to liver disease
# Urinary bladder wall thickening-outpatient urology evaluation
# Moderate emphysema-smoking cessation advised. Needs PFTs as outpatient. Alpha-1 antitrypsin level pending
# Active smoker-cessation counseling
# DVT prophylaxis-Eliquis
# Full code
Discussed with cardiology
Discussed with family at bedside
Discussed with nursing
Time spent more than 50 minutes
Original Note:
Today's Communication/Plan
-
.
Assessment / Plan
Assessment / Plan
Assessment
Atrial fibrillation with RVR
Acute HFrEF
Nonischemic cardiomyopathy
Elevated LFTs
Plan
#Atrial fibrillation with RVR
-cont. rate control with metoprolol succinate, digoxin load today
-RAVI attempted 03/12, imaging was stopped due to UNstable vital signs after administration of anesthesia. Although thrombus seen in the left atrial appendage
-Anticoagulation with apixaban
#Acute HFrEF
#Nonischemic cardiomyopathy
-S/p right/left heart catheterization 03/10 with normal coronary arteries in a right dominant system
-statin
-Continue GDMT therapy with metoprolol, Farxiga, valsartan, Cannot start Arni or MRA secondary to hypotension
-Monitor blood pressure
-Echo 03/10 with EF of 25%
-Midodrine for BP support
Elevated LFTs-
-LFTs trending down
-Alpha 1 antitrypsin negative
-Hepatitis panel negative
-CT and ultrasound suggestive of cirrhosis
-Patient states that he drinks alcohol only during summer and that too rarely.
-INR improving
-If not improving may need transfer to tertiary center
# DVT prophylaxis- Apixaban
# Full code
Anticipated Discharge: > 48 hours
Subjective/Interval History
-
Date of Service: March 12, 2024
Objective Data
-
Labs:
Laboratory Results
03/12/24 03/12/24
05:19 05:20
PT 19.2 H
INR 1.63
Sodium 131 L
Potassium 3.6
Chloride 94 L
Carbon Dioxide 29
BUN 17
Creatinine 0.5 L
Glucose 98
Calcium 7.7 L
Total Bilirubin 1.9 H
AST 490 H
ALT 448 H
Alkaline Phosphatase 76
Vital Signs:
Vital Signs
Temp Pulse Resp BP Pulse Ox
97.7 F 108 23 107/90 95
03/12/24 03:21 03/12/24 06:00 03/12/24 06:00 03/12/24 06:00 03/12/24 08:52
I&O
03/11/24 03/12/24 03/13/24
06:59 06:59 06:59
Intake Total 720 / 720
Output Total 1600 / 1600 4000 / 4000
Balance -1600 / -1600 -3280 / -3280
Review of Systems
-
All other systems: Reviewed and negative (Except as documented)
Physical Exam
-
General: No Apparent Distress
Respiratory: Crackles
Neuro: Awake, Alert, Oriented and AO x 3
Psych: Calm
[2024-03-12] MEDS: MIRALAX 17 GRAMS PO (11:08)
[2024-03-12] MEDS: LANOXIN 500 MCG PO (11:08)
[2024-03-12] MEDS: COLACE 100 MG PO (11:08)
[2024-03-12] MEDS: SENOKOT 17.2 MG PO (11:08)
--- NOTE | 2024-03-12 11:38 | W.PN.GI.CBS2 ---
Today's Communication / Plan
-
keep hemodynamics as stable as possible
Assessment / Plan
-
Pt is a 53yo presents without significant medical problems with fatigue, shortness of breath and diarrhea. Upon presentation to the emergency room he was found to have a markedly elevated proBNP as well as mildly elevated troponins, and new A-fib
with RVR with rise in LFT's with also concern for new non ischemic cardiomyopathy with decreased EF 20-25%. Has no history of liver issues or family history of liver issues. He states that he does drink on occasion during the carlin though has
not had a drink recently. He denies any Tylenol containing compounds. He denies any new medications or herbal supplements.
03/08/24- US doppler Slow flow within the main portal vein. The main portal vein is patent with normal direction of flow.Spectral waveforms of the portal vein and hepatic veins suggestive of cirrhosis.
Hepatic artery is visualized and is patent. Bilateral pleural effusions. Small to moderate amount of ascites present. Sludge present within the gallbladder with no shadowing gallstones. Gallbladder wall thickening, nonspecific. Negative sonographic
Ferrer's sign. No evidence for biliary ductal dilation. Hepatomegaly. Nodular external contour of the liver, compatible with cirrhosis. No evidence for a focal hepatic lesion.Slightly enlarged lymph nodes in the peripancreatic and periportal region.
These are most likely reactive inflammatory lymph nodes, commonly seen in this region in association with cirrhosis.
03/07/24 CT Chest/abd/pelvis Angio W/wo
1. No CTA evidence for a thoracic or abdominal aortic dissection, intramural hematoma, or aneurysm.
2. Cardiomegaly.
3. Moderate emphysema.
4. Bilateral pleural effusions, moderate right and small left.
5. Mild abdominopelvic ascites.
6. Mild hepatomegaly and slight nodularity of the liver contour raising suspicion for the early changes of cirrhosis.
7. Urinary bladder wall thickening for which correlation with a urinalysis is recommended.
03/10/24 right heart cath-
1. Normal coronary arteries in a right dominant system.
2. Elevated biventricular filling pressures with mildly reduced cardiac output.
-elevated LFT's
-afib with RVR
-new non ischemic cardiomyopathy with decreased EF 20-25%
-US with changes of cirrhosis
-mild ascites
-b/l effusion
-coagulopathy
-metabolic acidosis on admission
-tobacco abuse
-hyponatremia
PLAN:
transaminases and INR continue to improve
keep hemodynamically stable as abnl lfts c/w passive congestion/low perfusion
will sign off, call with questions.
Subjective
Subjective
Date of Service: March 12, 2024
Pt w/o issue
Objective
Data Reviewed
Laboratory Data:
Laboratory Results
03/11/24 07:01
03/12/24 05:20
Laboratory Results
PT 19.2 Sec (11.4-14.6) H 03/12/24 05:19
INR 1.63 03/12/24 05:19
APTT 99.3 Sec (23.4-35.0) H 03/11/24 07:01
Magnesium Cancelled 03/07/24 16:53
Total Bilirubin 1.9 mg/dl (0.2-1.3) H 03/12/24 05:20
AST 490 U/L (17-59) H 03/12/24 05:20
ALT 448 U/L (0-50) H 03/12/24 05:20
Alkaline Phosphatase 76 U/L (38-126) 03/12/24 05:20
Lipase 123 U/L (23-300) 03/07/24 16:18
Vital Signs and I&O:
Vital Signs
Temp Pulse Resp BP Pulse Ox
98 F 133 26 88/71 93
03/12/24 11:33 03/12/24 11:08 03/12/24 11:07 03/12/24 11:07 03/12/24 11:07
I&O
03/11/24 03/12/24 03/13/24
06:59 06:59 06:59
Intake Total 720 / 720
Output Total 1600 / 1600 4000 / 4000
Balance -1600 / -1600 -3280 / -3280
Physical Exam
Physical Exam
HEENT: Anicteric
Neuro: Other (alert, oriented)
--- NOTE | 2024-03-12 12:17 | W.PN.NEPH.PH ---
Today's Communication / Plan
-
follow BMP
Assessment/Plan
-
Assessment
Diarrhea
Elevated LFTs
Atrial fibrillation rapid ventricular rate
Hyponatremia
hyperkalemia
metabolic acidosis
Hypotension
Emphysema noted on CT
early changes of cirrhosis on CT
Plan
follow BMP
watch BP, he may not tolerate ARB
holding lasix today
also now on midodrine
-
-
Date of Service: March 12, 2024
CC / HPI / ROS
-
Chief Complaint:
Hypoantremia, met acidosis
History of Present Illness:
sodium up at 131
met acidosis resolved
LFTs improving
no fever
wt decreasing
BP remains low on midodrine
Cr normal
diuresed well with lasix yesterday
Review of Systems:
no cp or sob
feels fine
no dizziness
Labs
-
Labs:
WBC 7.4 10^3/uL (4.8-10.8) 03/11/24 07:01
RBC 3.91 10^6/uL (4.70-6.10) L 03/11/24 07:01
Hgb 13.5 g/dL (13.0-18.0) 03/11/24 07:01
Hct 37.6 % (39.0-52.0) L 03/11/24 07:01
Plt Count 214 10^3/uL (130-400) D 03/11/24 07:01
Sodium 131 mmol/L (135-145) L 03/12/24 05:20
Potassium 3.6 mmol/L (3.5-5.1) 03/12/24 05:20
Chloride 94 mmol/L (98-107) L 03/12/24 05:20
Carbon Dioxide 29 mmol/L (22-30) 03/12/24 05:20
BUN 17 mg/dl (9-20) 03/12/24 05:20
Creatinine 0.5 mg/dL (0.7-1.3) L 03/12/24 05:20
eGFR > 60.00 03/12/24 05:20
Glucose 98 mg/dl (70-99) 03/12/24 05:20
Calcium 7.7 mg/dl (8.4-10.2) L 03/12/24 05:20
Isd-J-Jjbvycpepef Pept 6310 pg/ml 03/07/24 16:18
Albumin 2.6 g/dl (3.5-5.0) L 03/12/24 05:20
Physical Exam
-
Vital Signs:
Vital Signs
Temp Pulse Resp BP Pulse Ox
98 F 133 26 88/71 93
03/12/24 11:33 03/12/24 11:08 03/12/24 11:07 03/12/24 11:07 03/12/24 11:07
[2024-03-12] MEDS: LANOXIN 250 MCG PO (17:08)
[2024-03-12] MEDS: COLACE PO (21:17)
[2024-03-12] MEDS: SENOKOT PO (21:17)
[2024-03-13] VITALS (32 sets, daily range): BP systolic 78–115; BP diastolic 54–87; PULSE 108–150; BMI 22.7
--- NOTE | 2024-03-13 03:24 | PTCARENOTE ---
Addendum entered by Precious Ambriz RN 03/13/24 03:27:
BP's improved, 100's/ 70's.
Original Note:
Pt appeared to get some sleep through out night. Respirations even unlabored, spo2 spot check at 97% on 2L NC. HR improved from 140-150's to 100-120's sustaining. Call claudio within reach. Assessment care and vitals as charted.
[2024-03-13 03:29] LABS: Hemoglobin 13.3 g/dL (13.0-18.0); Mean Corpuscular Hgb 34.4 pg (27.0-31.0); Mean Corpuscular Volume 98.2 fL (80.0-94.0); Mean Platelet Volume 10.2 fL (7.4-10.4); Platelet Count 204 10^3/uL (130-400); Red Blood Cell Count 3.87 10^6/uL (4.70-6.10); Red Cell Dist. Width 13.3 % (11.5-14.5); White Blood Cell Count 7.8 10^3/uL (4.8-10.8)
[2024-03-13 03:52] LABS: AST (SGOT) 336 U/L (17-59); Albumin 2.6 g/dl (3.5-5.0); Alkaline Phosphatase 70 U/L (38-126); Blood Urea Nitrogen 14 mg/dl (9-20); Calcium 8.2 mg/dl (8.4-10.2); Carbon Dioxide 27 mmol/L (22-30); Chloride 98 mmol/L (98-107); Direct Bilirubin 0.7 mg/dl (0.0-0.4); Estimated Creatinine Clearance > 125 ml/min; Glucose 122 mg/dl (70-99); Potassium 4.1 mmol/L (3.5-5.1); Sodium 133 mmol/L (135-145); Total Bilirubin 1.5 mg/dl (0.2-1.3); eGFR > 60.00
[2024-03-13 04:01] LABS: ALT (SGPT) 347 U/L (0-50)
--- NOTE | 2024-03-13 07:49 | W.PN.CD ---
Today's Communication / Plan
-
furosemide IV now with intensive monitoring of bp
tubigrips
dig 250mcg now and then at noon
Impression / Plan
-
Mr. Robbins is a 53 year old man presenting with new onset heart failure symptoms, found to have a dilated cardiomyopathy with EF 20-25%, Afib w/ RVR, and no coronary artery disease on left heart cath. He is undergoing titration of GDMT and
management of Afib.
# New cardiomyopathy
-initially presented with elevated LFTs and Cr suggesting low output, now improving
-remains volume overload, needs continued diuresis
-dilated LV, severely depressed LVEF 20-25%, also with RV dysfunction; mild/moderate MR
-cath with elevated filling pressures, mildly reduced CI (2.3), and no CAD
-non-ischemic etiology, possibly tachy mediated in setting of Afib, TSH normal; will obtain additional lab testing (iron studies, HIV, SARAH, metanepherines, B1, carnitine)
- cMRI as outpatient
-recommend evaluation at [facility] ([facility]) on discharge.
-describes long standing cardiac issue in father NOS,
-cont. metop succinate and dapa; valsartan holding--will focus on rate control first
Atrial fibrillation with rapid ventricular response
RAVI attempted but didn't tolerate small amount of anesthesia with drop in bp and oxygen sat
few views obtained showing PAT thrombus remaining of the procedure aborted.
-cont. rate control with metoprolol succinate, dig loading,
-Anticoagulation:continue DOAC
-[id number]: score 1---but now with thrombus, will need anticoagulation
Abnormal troponin, likely nonischemic myocardial injury in the setting of tachyarrhythmia and cardiomyopathy
-Peak troponin was on arrival, 0.343
-Denies chest pain
Severely Abnormal LFT's, improving
-GI consult: hepatic congestion vs primary liver etiology
Current smoker, cessation recommended
Overall remains a high risk situation that requires intensive hd monitoring with afib and rvr with a severely reduced ef.
Subjective:
He feeling ok no cp or sob.No palpitations.
RHC/LHC 03/10/24
HEMODYNAMIC DATA
LV 90/26 (EDP 29) mmHg
AO 100/81 (mean 87) mmHg
RA 23 mmHg
RV 44/20 (EDP 23) mmHg
PA 47/34 (mean 38) mmHg
PCWP 29 mmHg
CO/CI 4.3/2.3 L/min/m2
SVR 1195 dsc*-5
PVR 2.1 Wood Units
CORONARY ANGIOGRAPHY
Dominance: right
LM: large vessel without significant disease.
LAD: gives rise to a small D1 and moderate caliber D2. There is no CAD.
LCx: gives rise to a large OM1/ramus, small OM2, and small LPL branch. There is no CAD.
RCA: gives rise to a large RPDA and moderate caliber RPL branch. There is no CAD.
TTE 03/10/24
Left ventricle is mildly dilated. Severely reduced left ventricular systolic
function. Left ventricular ejection fraction is 20-25%.
Global hypokinesis.
Mild/moderate mitral regurgitation.
Right ventricle is dilated with reduced systolic function.
Mildly dilated aortic root. Sinus of Valsalva is 4.1 cm.
Physical Exam
Vital Signs/Labs
Vital Signs
Temp Pulse Resp BP Pulse Ox
97.9 F 110 13 85/73 96
03/13/24 07:12 03/13/24 06:00 03/13/24 06:00 03/13/24 06:00 03/13/24 00:02
03/12/24 03/13/24 03/14/24
06:59 06:59 06:59
Actual Weight 71.5 kg 69.7 kg
03/13/24 03:19
03/13/24 03:19
PT 19.2 Sec (11.4-14.6) H 03/12/24 05:19
INR 1.63 03/12/24 05:19
APTT 99.3 Sec (23.4-35.0) H 03/11/24 07:01
Magnesium Cancelled 03/07/24 16:53
Triglycerides 85 mg/dl (10-149) 03/08/24 03:56
LDL Cholesterol, Calc 95 mg/dl 03/08/24 03:56
VLDL Cholesterol, Calc 17 mg/dl (0-30) 03/08/24 03:56
HDL Cholesterol 15 mg/dl 03/08/24 03:56
03/07/24
16:18
Lkq-Q-Tnwlycmcfme Pept 6310
Physical Exam
Constitutional: No acute distress
Cardiovascular: Systolic murmur absent, Diastolic murmur absent, Rhythm/rate is irregular and Pedal edema present (1+ b/l)
Respiratory: Respiratory effort normal and Crackles Present (bibasilar)
Neuro/Psych: AO x 3
Data Reviewed
-
Date of Service: March 13, 2024
Medical Decision Making: Review of Case with other Provider (Dr Dueñas and Nurse Rodríguez, give lasix and dig now)
EKG: Other (afib with rvr)
[2024-03-13] MEDS: MIRALAX PO (07:56)
[2024-03-13] MEDS: COLACE PO (07:56)
[2024-03-13] MEDS: SODIUM BICARBONATE 650 MG PO (07:57)
[2024-03-13] MEDS: SENOKOT PO ×2 (07:58→21:35)
[2024-03-13] MEDS: ELIQUIS 5 MG PO ×2 (07:58→21:34)
[2024-03-13] MEDS: TOPROL XL 50 MG PO (07:58)
[2024-03-13] MEDS: FARXIGA 10 MG PO (07:58)
[2024-03-13] MEDS: ProAmatine 5 MG PO ×3 (07:59→17:43)
--- NOTE | 2024-03-13 08:43 | W.PN.HOSP.TC ---
Addendum entered and electronically signed by Mavis Dueñas MD 03/13/24 15:04:
I personally performed a history and physical exam of the patient and discussed management with the resident. I reviewed the resident's note and agree with the documented findings and plan of care HPI/CC except for changes in documentation.
Left and right heart cath-03/10/2024-normal coronaries. Wedge pressure 29 mmHg. Elevated bilateral LV filling pressures
Awake alert
Cardiovascular system S1-S2 appreciated systolic murmur at apex
Chest bilateral rales and base decreased breath sounds
Abdomen soft and nontender, no right upper quadrant tenderness
B/L pedal edema
# Acute hypoxic respiratory insufficiency-likely secondary to CHF
# Atrial fibrillation-new diagnosis with rapid ventricular response
Now on Eliquis
Normal TSH
Continue BB, a dose of Dig given
RAVI cardioversion was aborted today because of patient's hypotension, but briefly looking with a RAVI probe cardiology feels there was a thrombus therefore aborted.
# Acute HFrEF
Volume overload with pleural effusions on imaging
Echo as above-EF 25%
Elevated troponin-Type unknown. Trending down likely nonischemic myocardial injury
Cath with normal coronaries
This is nonischemic cardiomyopathy
Echo-shows EF of 25%
Continue metoprolol XL 50 mg daily
Farxiga also started
Cannot start Arni or MRA secondary to hypotension
Hold Valsartan .I think we should wait till his HR is better controlled and he is better diuresed to start this.
Added midodrine
# Hypokalemia-resolved
# Hyperkalemia resolved
# Hyponatremia likely hypervolemic. Lasix held 03/12/24
# metabolic acidosis-Resolved
# Abnormal LFTs- ? Shock Liver.
Alpha 1 antitrypsin-normal
Hepatitis panel pending
CT and ultrasound suggestive of cirrhosis
Patient states that he drinks alcohol only during summer and that too rarely.
Elevated INR noted, trending down
# Coagulopathy- resolving. - related to liver disease
# Urinary bladder wall thickening-outpatient urology evaluation
# Moderate emphysema-smoking cessation advised. Needs PFTs as outpatient. Alpha-1 antitrypsin level pending
# Active smoker-cessation counseling
# DVT prophylaxis-Eliquis
# Full code
Discussed with cardiology
D/W at bed side
Original Note:
Today's Communication/Plan
-
.
Assessment / Plan
Assessment / Plan
Assessment
Atrial fibrillation with RVR
Acute HFrEF
Nonischemic cardiomyopathy
Elevated LFTs
Plan
#Atrial fibrillation with RVR
-cont. rate control with metoprolol succinate, digoxin
-RAVI attempted 03/12, imaging was stopped due to UNstable vital signs after administration of anesthesia. Although thrombus seen in the left atrial appendage
-Anticoagulation with apixaban
#Acute HFrEF
#Nonischemic cardiomyopathy
-S/p right/left heart catheterization 03/10 with normal coronary arteries in a right dominant system
-statin
-Continue therapy with metoprolol, Farxiga, Holding valsartan,
-Monitor blood pressure
-Echo 03/10 with EF of 25%
-Midodrine for BP support
-Diuresis with IV Lasix
Elevated LFTs-
-LFTs trending down
-Alpha 1 antitrypsin negative
-Hepatitis panel negative
-CT and ultrasound suggestive of cirrhosis
-INR improving
# DVT prophylaxis- Apixaban
# Full code
Anticipated Discharge: > 48 hours
Subjective/Interval History
-
Date of Service: March 13, 2024
Objective Data
-
Labs:
Laboratory Results
03/13/24
03:19
WBC 7.8
Hgb 13.3
Hct 38.0 L
Plt Count 204
Sodium 133 L
Potassium 4.1
Chloride 98
Carbon Dioxide 27
BUN 14
Creatinine 0.5 L
Glucose 122 H
Calcium 8.2 L
Total Bilirubin 1.5 H
AST 336 H
ALT 347 H
Alkaline Phosphatase 70
Vital Signs:
Vital Signs
Temp Pulse Resp BP Pulse Ox
97.9 F 139 21 104/78 96
03/13/24 07:12 03/13/24 08:00 03/13/24 08:00 03/13/24 08:00 03/13/24 08:00
I&O
03/12/24 03/13/24 03/14/24
06:59 06:59 06:59
Intake Total 720 / 720 240 / 240
Output Total 4000 / 4000 1150 / 1150 375 / 375
Balance -3280 / -3280 -910 / -910 -375 / -375
Review of Systems
-
All other systems: Reviewed and negative (Except as documented)
Physical Exam
-
General: No Apparent Distress
Respiratory: Crackles
Cardiac: S1/S2 and Irregular Rhythm
GI: Soft, Nontender and Nondistended
Musculoskeletal: Other (Pedal edema bilateral extremities)
Neuro: Awake, Alert, Oriented and AO x 3
[2024-03-13] MEDS: LANOXIN 250 MCG PO ×2 (09:09→12:03)
[2024-03-13] MEDS: LASIX 40 MG IV (09:10)
--- NOTE | 2024-03-13 12:04 | W.PN.NEPH.PH ---
Today's Communication / Plan
-
lasix
Assessment/Plan
-
Assessment
Diarrhea
Elevated LFTs
Atrial fibrillation rapid ventricular rate
Hyponatremia
hyperkalemia
metabolic acidosis
Hypotension
Emphysema noted on CT
early changes of cirrhosis on CT
Plan
follow BMP
off ARB given hypotension
still on midodrine
for lasix today
-
-
Date of Service: March 13, 2024
CC / HPI / ROS
-
Chief Complaint:
Hypoantremia, met acidosis
History of Present Illness:
sodium up at 133
met acidosis resolved
LFTs improving
no fever
BP remains low on midodrine
Cr normal
lasix for decompensated HF held yesterday due to hypotension
Review of Systems:
no cp or sob
feels fine
no dizziness
Labs
-
Labs:
WBC 7.8 10^3/uL (4.8-10.8) 03/13/24 03:19
RBC 3.87 10^6/uL (4.70-6.10) L 03/13/24 03:19
Hgb 13.3 g/dL (13.0-18.0) 03/13/24 03:19
Hct 38.0 % (39.0-52.0) L 03/13/24 03:19
Plt Count 204 10^3/uL (130-400) 03/13/24 03:19
Sodium 133 mmol/L (135-145) L 03/13/24 03:19
Potassium 4.1 mmol/L (3.5-5.1) 03/13/24 03:19
Chloride 98 mmol/L (98-107) 03/13/24 03:19
Carbon Dioxide 27 mmol/L (22-30) 03/13/24 03:19
BUN 14 mg/dl (9-20) 03/13/24 03:19
Creatinine 0.5 mg/dL (0.7-1.3) L 03/13/24 03:19
eGFR > 60.00 03/13/24 03:19
Glucose 122 mg/dl (70-99) H 03/13/24 03:19
Calcium 8.2 mg/dl (8.4-10.2) L 03/13/24 03:19
Csg-R-Jkzsuakdvnw Pept 6310 pg/ml 03/07/24 16:18
Albumin 2.6 g/dl (3.5-5.0) L 03/13/24 03:19
Physical Exam
-
Vital Signs:
Vital Signs
Temp Pulse Resp BP Pulse Ox
98 F 148 18 111/69 95
03/13/24 11:27 03/13/24 10:12 03/13/24 10:12 03/13/24 10:12 03/13/24 10:57
Cardiovascular:: Regular rate and rhythm
Respiratory:: Bilateral: Coarse
Lung Excursion:: Normal
Abdomen:: Nontender and Soft
Bowel Sounds:: Normal
Extremity Edema:: +1: Bilateral:
[2024-03-13] MEDS: COLACE 100 MG PO (21:34)
[2024-03-14] VITALS (23 sets, daily range): BP systolic 87–122; BP diastolic 59–102; PULSE 116–122; BMI 22.1
--- NOTE | 2024-03-14 01:22 | PTCARENOTE ---
Assumed care for patient overnight, received report from dayshift RN. Pt sleeping currently respirations are even and unlabored. Pt remains on 2L via NC and spo2 is 98%. Pt A-fib on tele. Pt educated on medications given and was receptive to learn.
Pt denies dizziness, SOB, palpitations, or chest pain. Pt is a standby assist to the bathroom. Call claudio is within reach.
[2024-03-14 03:17] LABS: Transferrin 188 mg/dL (200-360)
[2024-03-14 05:57] LABS: Blood Urea Nitrogen 13 mg/dl (9-20); Calcium 8.2 mg/dl (8.4-10.2); Carbon Dioxide 25 mmol/L (22-30); Chloride 99 mmol/L (98-107); Estimated Creatinine Clearance > 125 ml/min; Glucose 101 mg/dl (70-99); Sodium 133 mmol/L (135-145); eGFR > 60.00
[2024-03-14 07:57] LABS: ANA, IgG Reflex to HEp-2 None Detected (None Detected)
[2024-03-14] MEDS: FARXIGA 10 MG PO (08:23)
[2024-03-14] MEDS: MIRALAX 17 GRAMS PO (08:24)
[2024-03-14] MEDS: ELIQUIS 5 MG PO ×2 (08:24→19:59)
[2024-03-14] MEDS: SENOKOT 17.2 MG PO (08:24)
[2024-03-14] MEDS: COLACE 100 MG PO (08:24)
[2024-03-14] MEDS: LASIX 40 MG IV (08:25)
[2024-03-14] MEDS: TOPROL XL 50 MG PO (08:26)
[2024-03-14] MEDS: ProAmatine 5 MG PO ×3 (08:26→19:59)
[2024-03-14] MEDS: SODIUM BICARBONATE 650 MG PO (08:26)
--- NOTE | 2024-03-14 08:41 | W.PN.NEPH.PH ---
Today's Communication / Plan
-
Add fluid restriction 1500 cc
Diuresis per cardiology
Assessment/Plan
-
Assessment
Diarrhea
Elevated LFTs
Atrial fibrillation rapid ventricular rate
Hyponatremia
hyperkalemia
metabolic acidosis
Hypotension
Emphysema noted on CT
early changes of cirrhosis on CT
Plan
follow BMP creatinine stable at 0. and grossly non oliguric at 4600cc
off ARB given hypotension
still on midodrine
sodium unchanged at 133, placed fluid restriction at 50 ounces daily
Remains on Lasix 40 mg IV daily
-
-
Date of Service: March 14, 2024
CC / HPI / ROS
-
Chief Complaint:
Hypoantremia, met acidosis
History of Present Illness:
sodium up at 133
met acidosis resolved
LFTs improving
no fever
BP remains low on midodrine
Cr normal
lasix for decompensated HF
Review of Systems:
no cp or sob
feels fine
no dizziness
Labs
-
Labs:
WBC 7.8 10^3/uL (4.8-10.8) 03/13/24 03:19
RBC 3.87 10^6/uL (4.70-6.10) L 03/13/24 03:19
Hgb 13.3 g/dL (13.0-18.0) 03/13/24 03:19
Hct 38.0 % (39.0-52.0) L 03/13/24 03:19
Plt Count 204 10^3/uL (130-400) 03/13/24 03:19
Sodium 133 mmol/L (135-145) L 03/14/24 05:27
Potassium 4.0 mmol/L (3.5-5.1) 03/14/24 05:27
Chloride 99 mmol/L (98-107) 03/14/24 05:27
Carbon Dioxide 25 mmol/L (22-30) 03/14/24 05:27
BUN 13 mg/dl (9-20) 03/14/24 05:27
Creatinine 0.5 mg/dL (0.7-1.3) L 03/14/24 05:27
eGFR > 60.00 03/14/24 05:27
Glucose 101 mg/dl (70-99) H 03/14/24 05:27
Calcium 8.2 mg/dl (8.4-10.2) L 03/14/24 05:27
Tym-P-Azqmmnzetco Pept 6310 pg/ml 03/07/24 16:18
Physical Exam
-
Vital Signs:
Vital Signs
Temp Pulse Resp BP Pulse Ox
97.6 F 118 13 102/59 95
03/14/24 03:08 03/14/24 08:26 03/14/24 05:00 03/14/24 08:26 03/14/24 05:00
Cardiovascular:: Regular rate and rhythm
Respiratory:: Bilateral: Coarse
Lung Excursion:: Normal
Abdomen:: Nontender and Soft
Bowel Sounds:: Normal
Extremity Edema:: +1: Bilateral:
--- NOTE | 2024-03-14 08:56 | PTCARENOTE ---
OOb to ambulate to bathroom, pt brushing hair and heart rate as high as 170, pt tachyneic with pulse ox 94% on room air, Pt reapplied oxygen via NC.Pt btb and hear rate down to 135.
[2024-03-14 08:58] LABS: ALT (SGPT) 306 U/L (0-50); AST (SGOT) 232 U/L (17-59); Albumin 2.7 g/dl (3.5-5.0); Alkaline Phosphatase 68 U/L (38-126); Direct Bilirubin 0.6 mg/dl (0.0-0.4); Total Bilirubin 1.5 mg/dl (0.2-1.3); Total Protein 5.1 g/dl (6.3-8.2)
--- NOTE | 2024-03-14 09:18 | W.PN.HOSP.TC ---
Addendum entered and electronically signed by Mavis Dueñas MD 03/14/24 14:56:
I personally performed a history and physical exam of the patient and discussed management with the resident. I reviewed the resident's note and agree with the documented findings and plan of care HPI/CC except for changes in documentation.
Left and right heart cath-03/10/2024-normal coronaries. Wedge pressure 29 mmHg. Elevated bilateral LV filling pressures
Awake alert
Cardiovascular system S1-S2 appreciated systolic murmur at apex
Chest bilateral rales and base decreased breath sounds
Abdomen soft and nontender, no right upper quadrant tenderness
B/L pedal edema
# Acute hypoxic respiratory insufficiency-likely secondary to CHF
# Atrial fibrillation-new diagnosis with rapid ventricular response
Now on Eliquis
Normal TSH
Continue BB and Dig
RAVI cardioversion was aborted today because of patient's hypotension, but briefly looking with a RAVI probe cardiology feels there was a thrombus therefore aborted.
# Acute HFrEF
Volume overload with pleural effusions on imaging
Echo as above-EF 25%
Elevated troponin-Type unknown. Trending down likely nonischemic myocardial injury
Cath with normal coronaries
This is nonischemic cardiomyopathy
Echo-shows EF of 25%
Continue metoprolol XL 50 mg daily
Farxiga also started
Cannot start Arni or MRA secondary to hypotension
Added midodrine
IV lasix
# Hypokalemia-resolved
# Hyperkalemia resolved
# Hyponatremia likely hypervolemic.
# metabolic acidosis-Resolved
# Abnormal LFTs- ? Shock Liver.
Alpha 1 antitrypsin-normal
Hepatitis panel neg
CT and ultrasound suggestive of cirrhosis
Patient states that he drinks alcohol only during summer and that too rarely.
# Vit D Def- Replace
# Coagulopathy- resolving. - related to liver disease
# Urinary bladder wall thickening-outpatient urology evaluation
# Moderate emphysema-smoking cessation advised. Needs PFTs as outpatient. Alpha-1 antitrypsin level normal
# Hypoalbuminemia
# Active smoker-cessation counseling
# DVT prophylaxis-Eliquis
# Full code
Discussed with cardiology
D/W at bed side
Original Note:
Today's Communication/Plan
-
Diuresis with IV lasix
Digoxin for rate control
Assessment / Plan
Assessment / Plan
Assessment
Atrial fibrillation with RVR
Acute HFrEF
Nonischemic cardiomyopathy
Elevated LFTs
Plan
#Atrial fibrillation with RVR
-cont. rate control with metoprolol succinate, digoxin
-RAVI attempted 03/12, imaging was stopped due to UNstable vital signs after administration of anesthesia. Although thrombus seen in the left atrial appendage
-Anticoagulation with apixaban
#Acute HFrEF
#Nonischemic cardiomyopathy
-S/p right/left heart catheterization 03/10 with normal coronary arteries in a right dominant system
-statin
-Continue therapy with metoprolol, Farxiga, Holding valsartan,
-Monitor blood pressure
-Echo 03/10 with EF of 25%
-Midodrine for BP support
-Diuresis with IV Lasix
Elevated LFTs-
-LFTs trending down
-Alpha 1 antitrypsin negative
-Hepatitis panel negative
-CT and ultrasound suggestive of cirrhosis
-INR improving
# DVT prophylaxis- Apixaban
# Full code
Anticipated Discharge: 24 - 48 hours
Subjective/Interval History
-
Date of Service: March 14, 2024
Objective Data
-
Labs:
Laboratory Results
03/14/24
05:27
Sodium 133 L
Potassium 4.0
Chloride 99
Carbon Dioxide 25
BUN 13
Creatinine 0.5 L
Glucose 101 H
Calcium 8.2 L
Total Bilirubin 1.5 H
AST 232 H
ALT 306 H
Alkaline Phosphatase 68
Vital Signs:
Vital Signs
Temp Pulse Resp BP Pulse Ox
97.6 F 118 13 102/59 95
03/14/24 03:08 03/14/24 08:26 03/14/24 05:00 03/14/24 08:26 03/14/24 05:00
I&O
03/13/24 03/14/24 03/15/24
06:59 06:59 06:59
Intake Total 240 / 240 975 / 975
Output Total 1150 / 1150 4905 / 4905 150 / 150
Balance -910 / -910 -3930 / -3930 -150 / -150
Review of Systems
-
All other systems: Reviewed and negative (except as documented.)
Physical Exam
-
General: Well Developed and No Apparent Distress
Respiratory: Crackles
Cardiac: S1/S2
GI: Soft, Nontender and Nondistended
[2024-03-14] MEDS: LANOXIN 250 MCG PO (12:36)
[2024-03-14] MEDS: VITAMIN D3 (cholecalciferol) 50 MCG PO (15:52)
--- NOTE | 2024-03-14 16:38 | CM ---
Patient with Dx HF, new Afib with RVR. O2 2L charted at 5am. Receiving IV Lasix, midodrine.
CM continuing to follow.
Plan watch for home O2 needs.
Plan home.
[2024-03-14] MEDS: COLACE PO (20:00)
[2024-03-14] MEDS: SENOKOT PO (20:00)
--- NOTE | 2024-03-14 22:06 | W.PN.CD ---
Addendum entered and electronically signed by Pineda Godfrey MD 03/14/24 22:22:
-
-
Note: He has been on midodrine 5 TID => will increase to 10 TID
-
-
Original Note:
Today's Communication / Plan
-
- Pt seen early today (before 10 AM), late chart note
- Seems reasonable to add midodrine, see reference below
- Once BP improve then add more rate control
- Early sinus rhythm (after 3 weeks Eliquis with repeat RAVI) makes sense. I would add AMIODARONE after cardioversion but not want more than 3-6 months of AMIO, early ABLATION if stable enough or Tikosyn are other good options
- Reasonable for early tertiary referral but may the concern for early liver cirrhosis on CT and concern for moderate emphyssema on CT and active smoking make him probalbly a poor transplant candidate but those issues on raised on CT and could be
further evaluated electively
Impression / Plan
-
Mr. Robbins is a 53 year old man presenting with new onset heart failure symptoms, found to have a dilated cardiomyopathy with EF 20-25%, Afib w/ RVR, and no coronary artery disease on left heart cath. He is undergoing titration of GDMT and
management of Afib.
Hypotension is limiting medical therapy
- Seems reasonable to add midodrine
- See: [facility] ([facility] 2022; 85(6): 2808�2813. Published online 2022November 08. doi: 10.1097/[id number] PMCID: [id number]: [id number] Use of midodrine in heart failure: a review
New nonischemic cardiomyopathy
- Some labs back: hemochromatosis very unlikely
- Adrenal insuf very unlikely
New HFrEF, severe
Newly found AFib, RVR
Left atrial appendage thrombus
CT suggests comorbid conditions:
- Moderate emphysema by CT criteria, current smoker: told to quit
- Possible early cirrhosis
Abnormal troponin=> nonischemic myocardial injury in the setting of tachyarrhythmia and cardiomyopathy, peak troponin was on arrival, 0.343
Severely Abnormal LFT's, improving
-GI consult: hepatic congestion vs primary liver etiology
Current smoker, cessation recommended
Subjective:
He feeling ok no cp or sob.No palpitations.
Data:
RHC/LHC 03/10/24
HEMODYNAMIC DATA
LV 90/26 (EDP 29) mmHg
AO 100/81 (mean 87) mmHg
RA 23 mmHg
RV 44/20 (EDP 23) mmHg
PA 47/34 (mean 38) mmHg
PCWP 29 mmHg
CO/CI 4.3/2.3 L/min/m2
SVR 1195 dsc*-5
PVR 2.1 Wood Units
CORONARY ANGIOGRAPHY
Dominance: right
LM: large vessel without significant disease.
LAD: gives rise to a small D1 and moderate caliber D2. There is no CAD.
LCx: gives rise to a large OM1/ramus, small OM2, and small LPL branch. There is no CAD.
RCA: gives rise to a large RPDA and moderate caliber RPL branch. There is no CAD.
TTE 03/10/24
Left ventricle is mildly dilated. Severely reduced left ventricular systolic
function. Left ventricular ejection fraction is 20-25%.
Global hypokinesis.
Mild/moderate mitral regurgitation.
Right ventricle is dilated with reduced systolic function.
Mildly dilated aortic root. Sinus of Valsalva is 4.1 cm.
Physical Exam
Vital Signs/Labs
Vital Signs
Temp Pulse Resp BP Pulse Ox
97.9 F 128 21 87/67 96
03/14/24 19:45 03/14/24 19:59 03/14/24 19:00 03/14/24 19:59 03/14/24 20:24
03/13/24 03/14/24 03/15/24
06:59 06:59 06:59
Actual Weight 69.7 kg 67.9 kg
03/13/24 03:19
03/14/24 05:27
PT 19.2 Sec (11.4-14.6) H 03/12/24 05:19
INR 1.63 03/12/24 05:19
APTT 99.3 Sec (23.4-35.0) H 03/11/24 07:01
Magnesium Cancelled 03/07/24 16:53
Triglycerides 85 mg/dl (10-149) 03/08/24 03:56
LDL Cholesterol, Calc 95 mg/dl 03/08/24 03:56
VLDL Cholesterol, Calc 17 mg/dl (0-30) 03/08/24 03:56
HDL Cholesterol 15 mg/dl 03/08/24 03:56
03/07/24
16:18
Abs-B-Jszbjwpymlx Pept 6310
Physical Exam
Constitutional: No acute distress
EENT: Anicteric
Cardiovascular: Rhythm & rate is regular and Pedal edema is absent
Respiratory: Respiratory effort normal and Lungs clear to auscul.
GI: Soft and Distention absent
Neuro/Psych: AO x 3
Data Reviewed
-
Date of Service: March 14, 2024
[2024-03-15] VITALS (24 sets, daily range): BP systolic 87–117; BP diastolic 62–106; BMI 22.1
--- NOTE | 2024-03-15 01:43 | PTCARENOTE ---
Assumed care for patient overnight, received report from dayshift RN. Pt OOB to bathroom, tolerated being OOB HR up to 160's. Respirations even and unlabored, crackles heard while auscultating. Pt denies dizziness, palpitations, or chest pain. Pt is
standby assist to the BR. Pt appears to be sleeping comfortably in bed. Call claudio is within reach.
[2024-03-15 04:32] LABS: Hematocrit 41.5 % (39.0-52.0); Hemoglobin 14.4 g/dL (13.0-18.0); Mean Corp Hgb Conc. 34.7 g/dL (33.0-37.0); Mean Corpuscular Volume 98.1 fL (80.0-94.0); Mean Platelet Volume 10.3 fL (7.4-10.4); Platelet Count 234 10^3/uL (130-400); Red Blood Cell Count 4.23 10^6/uL (4.70-6.10); Red Cell Dist. Width 13.1 % (11.5-14.5)
--- NOTE | 2024-03-15 08:54 | W.PN.NEPH.PH ---
Today's Communication / Plan
-
Follow BMP
Assessment/Plan
-
Assessment
Diarrhea
Elevated LFTs
Atrial fibrillation rapid ventricular rate
Hyponatremia
hyperkalemia
metabolic acidosis
Hypotension
Emphysema noted on CT
early changes of cirrhosis on CT
Plan
follow BMP creatinine stable at 0.5 and grossly non oliguric at 3700cc
off ARB given hypotension
still on midodrine at 10 mg 3 times daily
sodium unchanged at 133, placed fluid restriction at 50 ounces daily
Remains on Lasix 40 mg IV daily
follow up bmp in am
-
-
Date of Service: March 15, 2024
CC / HPI / ROS
-
Chief Complaint:
Hypoantremia, met acidosis
History of Present Illness:
sodium up at 133
met acidosis resolved
LFTs improving
no fever
BP remains low on midodrine
Cr normal
lasix for decompensated HF
Creatinine 0.5
Review of Systems:
no cp or sob
feels fine
no dizziness
Grossly non oliguric
Labs
-
Labs:
WBC 8.0 10^3/uL (4.8-10.8) 03/15/24 04:06
RBC 4.23 10^6/uL (4.70-6.10) L 03/15/24 04:06
Hgb 14.4 g/dL (13.0-18.0) 03/15/24 04:06
Hct 41.5 % (39.0-52.0) 03/15/24 04:06
Plt Count 234 10^3/uL (130-400) 03/15/24 04:06
Sodium 133 mmol/L (135-145) L 03/14/24 05:27
Potassium 4.0 mmol/L (3.5-5.1) 03/14/24 05:27
Chloride 99 mmol/L (98-107) 03/14/24 05:27
Carbon Dioxide 25 mmol/L (22-30) 03/14/24 05:27
BUN 13 mg/dl (9-20) 03/14/24 05:27
Creatinine 0.5 mg/dL (0.7-1.3) L 03/14/24 05:27
eGFR > 60.00 03/14/24 05:27
Glucose 101 mg/dl (70-99) H 03/14/24 05:27
Calcium 8.2 mg/dl (8.4-10.2) L 03/14/24 05:27
Gsc-U-Oesmvdevrqs Pept 6310 pg/ml 03/07/24 16:18
Albumin 2.7 g/dl (3.5-5.0) L 03/14/24 05:27
Physical Exam
-
Vital Signs:
Vital Signs
Temp Pulse Resp BP Pulse Ox
97.6 F 132 17 107/80 96
03/15/24 07:53 03/15/24 06:00 03/15/24 06:00 03/15/24 05:00 03/14/24 20:24
Cardiovascular:: Regular rate and rhythm
Respiratory:: Bilateral: Coarse
Lung Excursion:: Normal
Abdomen:: Nontender and Soft
Bowel Sounds:: Normal
Extremity Edema:: +1: Bilateral:
[2024-03-15] MEDS: COLACE 100 MG PO (09:27)
[2024-03-15] MEDS: ELIQUIS 5 MG PO ×2 (09:27→21:39)
[2024-03-15] MEDS: SENOKOT 17.2 MG PO (09:27)
[2024-03-15] MEDS: FARXIGA 10 MG PO (09:27)
[2024-03-15] MEDS: SODIUM BICARBONATE 650 MG PO (09:28)
[2024-03-15] MEDS: TOPROL XL 50 MG PO (09:29)
[2024-03-15] MEDS: ProAmatine 10 MG PO ×3 (09:29→16:58)
[2024-03-15] MEDS: VITAMIN D3 (cholecalciferol) 50 MCG PO (09:30)
[2024-03-15] MEDS: MIRALAX PO (09:30)
[2024-03-15] MEDS: LASIX 40 MG IV (09:30)
[2024-03-15] MEDS: LANOXIN 250 MCG IV (10:30)
--- NOTE | 2024-03-15 10:32 | W.PN.HOSP.TC ---
Today's Communication/Plan
-
see bold
Assessment / Plan
Assessment / Plan
Gen: NAD, AAOx3, appears chronically ill.
Eyes: EOMI, PERRLA, no scleral icterus.
Neck: supple.
CV: tachy, irreg/irreg, +S1/S2, no m/r/g.
Resp: decreased BS and rales in the bases
Abd: +BS, soft, NT, ND
Skin: No rashes. No LE edema
Neuro: CN 2-12 intact, non-focal.
Psych: Normal mood and affect.
CTA C/A/P:
1. No CTA evidence for a thoracic or abdominal aortic dissection, intramural hematoma, or aneurysm.
2. Cardiomegaly.
3. Moderate emphysema.
4. Bilateral pleural effusions, moderate right and small left.
5. Mild abdominopelvic ascites.
6. Mild hepatomegaly and slight nodularity of the liver contour raising suspicion for the early changes of cirrhosis.
7. Urinary bladder wall thickening for which correlation with a urinalysis is recommended.
Echo: Left ventricle is mildly dilated. Severely reduced left ventricular systolic function. Left ventricular ejection fraction is 20-25%. Global hypokinesis. Mild/moderate mitral regurgitation. Right ventricle is dilated with reduced systolic
function. Mildly dilated aortic root. Sinus of Valsalva is 4.1 cm.
Acute HFrEF:
-echo above, EF 25%
-NICM, clean cath
-cont IV lasix, daily wts, I/Os
-cont GDMT: BB/Farxiga
-ARB held with hypotension
-midodrine for hypotension
Atrial fibrillation with RVR:
-RAVI attempted 03/12/24, imaging was stopped due to hypotension after administration of anesthesia. PAT thrombus seen, cont Eliquis.
-cont BB/cardizem
-cont Digoxin load
Elevated LFTs/shock liver:
-improving with diuresis
-Alpha-1 antitrypsin negative
-CT Abd with findings suggesting early cirrhosis
FULL/Eliquis
Total time spent on today's encounter was 50 minutes which included time spent in counseling the patient/family regarding diagnosis and treatment plan as listed above, goals of care, and symptom management. Case was discussed with nursing staff,
specialists, and care coordinators/case management. All labs and imaging personally reviewed by me. Remainder the time spent in detailed review of previous records, lab data, imaging, and other medical provider documentation.
Anticipated Discharge: > 48 hours
Subjective/Interval History
-
Date of Service: March 15, 2024
Denies CP/SOB.
Objective Data
-
Labs:
Laboratory Results
03/15/24
04:06
WBC 8.0
Hgb 14.4
Hct 41.5
Plt Count 234
Vital Signs:
Vital Signs
Temp Pulse Resp BP Pulse Ox
97.6 F 132 17 107/80 96
03/15/24 07:53 03/15/24 06:00 03/15/24 06:00 03/15/24 05:00 03/14/24 20:24
I&O
03/14/24 03/15/24 03/16/24
06:59 06:59 06:59
Intake Total 975 / 975 1250 / 1250
Output Total 4905 / 4905 3850 / 3850
Balance -3930 / -3930 -2600 / -2600
[2024-03-15 11:03] LABS: Carnitine Ester/Free Ratio 0.2 (0.1-1.0); Carnitine, Esterified 17 umol/L (5-29); Carnitine, Free 70 umol/L (25-60); Carnitine, Total 87 umol/L (34-86)
[2024-03-15] MEDS: LANOXIN 250 MCG PO (12:21)
[2024-03-15] MEDS: CARDIZEM 30 MG PO ×3 (12:23→21:38)
--- NOTE | 2024-03-15 12:48 | W.PN.CD ---
Today's Communication / Plan
-
-On Metoprolol 50 mg QD; Digoxin 250 mg QD, Still RVR is upto 170s
- Will decrease Valsartan from 40 to 20 mg
- Will add Diltiazem 30 mg QID and uptitrate based on the rate control.
Impression / Plan
-
Mr. Robbins is a 53 year old man presenting with new onset heart failure symptoms, found to have a dilated cardiomyopathy with EF 20-25%, Afib w/ RVR, and no coronary artery disease on left heart cath. He is undergoing titration of GDMT and
management of Afib.
Hypotension is limiting medical therapy
- On midodrine 10 mg TID
- See: [facility] ([facility] 2022; 85(6): 2808�2813. Published online 2022November 08. doi: 10.1097/[id number] PMCID: [id number]: [id number] Use of midodrine in heart failure: a review
New nonischemic cardiomyopathy
- Some labs back: hemochromatosis very unlikely
- Adrenal insuf very unlikely
New HFrEF, severe
- ECHO 03/09/24: Severely reduced left ventricular systolic function - LVEF 20-25%. Global hypokinesis.
Mild/moderate mitral regurgitation.
-A-fib with poorly controlled ventricular response could be precipitating some of his global hypokinesis.
Newly found AFib, RVR - rates are poorly controlled.
-On Metoprolol 50 mg QD; Digoxin 250 mg QD, Still RVR is upto 170s
- Will decrease Valsartan from 40 to 20 mg
- Will add Diltiazem 30 mg QID and uptitrate based on the rate control.
Left atrial appendage thrombus
CT suggests comorbid conditions:
- Moderate emphysema by CT criteria, current smoker: told to quit
- Possible early cirrhosis
Abnormal troponin=> nonischemic myocardial injury in the setting of tachyarrhythmia and cardiomyopathy, peak troponin was on arrival, 0.343
Severely Abnormal LFT's, improving
-GI consult: hepatic congestion vs primary liver etiology
Current smoker, cessation recommended
Subjective:
He feeling ok no cp or sob.No palpitations.
Data:
RHC/LHC 03/10/24
HEMODYNAMIC DATA
LV 90/26 (EDP 29) mmHg
AO 100/81 (mean 87) mmHg
RA 23 mmHg
RV 44/20 (EDP 23) mmHg
PA 47/34 (mean 38) mmHg
PCWP 29 mmHg
CO/CI 4.3/2.3 L/min/m2
SVR 1195 dsc*-5
PVR 2.1 Wood Units
CORONARY ANGIOGRAPHY
Dominance: right
LM: large vessel without significant disease.
LAD: gives rise to a small D1 and moderate caliber D2. There is no CAD.
LCx: gives rise to a large OM1/ramus, small OM2, and small LPL branch. There is no CAD.
RCA: gives rise to a large RPDA and moderate caliber RPL branch. There is no CAD.
TTE 03/10/24
Left ventricle is mildly dilated. Severely reduced left ventricular systolic
function. Left ventricular ejection fraction is 20-25%.
Global hypokinesis.
Mild/moderate mitral regurgitation.
Right ventricle is dilated with reduced systolic function.
Mildly dilated aortic root. Sinus of Valsalva is 4.1 cm.
Physical Exam
Vital Signs/Labs
Vital Signs
Temp Pulse Resp BP Pulse Ox
98.6 F 101 20 97/85 96
03/15/24 11:37 03/15/24 12:23 03/15/24 12:00 03/15/24 12:23 03/14/24 20:24
03/14/24 03/15/24 03/16/24
06:59 06:59 06:59
Actual Weight 67.9 kg 67.9 kg
03/15/24 04:06
03/14/24 05:27
PT 19.2 Sec (11.4-14.6) H 03/12/24 05:19
INR 1.63 03/12/24 05:19
APTT 99.3 Sec (23.4-35.0) H 03/11/24 07:01
Magnesium Cancelled 03/07/24 16:53
Triglycerides 85 mg/dl (10-149) 03/08/24 03:56
LDL Cholesterol, Calc 95 mg/dl 03/08/24 03:56
VLDL Cholesterol, Calc 17 mg/dl (0-30) 03/08/24 03:56
HDL Cholesterol 15 mg/dl 03/08/24 03:56
03/07/24
16:18
Rne-G-Yzirhrynxgl Pept 6310
Physical Exam
Constitutional: No acute distress and Comfortable
EENT: Anicteric and Moist mucous membranes
Cardiovascular: Pedal edema is absent, JVD pressure is normal, Rhythm/rate is irregular and Systolic murmur present
Respiratory: Respiratory effort normal and Wheeze Absent
GI: Soft, Non tender and Normal bowel sounds
Neuro/Psych: Alert, Oriented, AO x 3 and Motor deficits absent
Data Reviewed
-
Date of Service: March 15, 2024
Medical Decision Making: Reviewed Test Results, Independent Historian Assessment and Test Interpretation
EKG: Tracing Personally Visualized and interpreted
Echo: Tracing Personally Visualized and interpreted and Report Reviewed by me
X-Ray/CT/US/MRI/NUC/PET: Image Personally Visualized and interpreted
Labs: Labs Reviewed by me
Old Records: Reviewed
[2024-03-15] MEDS: COLACE PO (21:38)
[2024-03-15] MEDS: SENOKOT PO (21:38)
[2024-03-16] VITALS (10 sets, daily range): BP systolic 84–117; BP diastolic 62–91; BMI 20.9
--- NOTE | 2024-03-16 03:41 | PTCARENOTE ---
Pt OOB to the bathroom, tolerated being OOB HR went to 120's-130's, but asymptomatic. Pt A-fib on tele. HR 70-90. Respirations even and unlabored. Crackles heard during auscultation of the bilateral bases. Pt appears to be sleeping comfortably. Call
claudio is within reach.
[2024-03-16 05:04] LABS: Blood Urea Nitrogen 21 mg/dl (9-20); Carbon Dioxide 27 mmol/L (22-30); Chloride 99 mmol/L (98-107); Estimated Creatinine Clearance > 125 ml/min; Glucose 93 mg/dl (70-99); Potassium 4.7 mmol/L (3.5-5.1); Sodium 137 mmol/L (135-145); eGFR > 60.00
[2024-03-16] MEDS: ELIQUIS 5 MG PO ×2 (08:24→21:38)
[2024-03-16] MEDS: TOPROL XL 50 MG PO (08:24)
[2024-03-16] MEDS: SENOKOT 17.2 MG PO (08:25)
[2024-03-16] MEDS: COLACE 100 MG PO (08:25)
[2024-03-16] MEDS: CARDIZEM 30 MG PO ×4 (08:26→21:38)
[2024-03-16] MEDS: SODIUM BICARBONATE 650 MG PO (08:26)
--- NOTE | 2024-03-16 08:26 | W.PN.HOSP.TC ---
Today's Communication/Plan
-
see bold
Assessment / Plan
Assessment / Plan
Gen: remains NAD, AAOx3, appears chronically ill.
Eyes: EOMI, PERRLA, no scleral icterus.
Neck: supple.
CV: irreg/irreg, +S1/S2, no m/r/g.
Resp: CTAB
Abd: +BS, soft, NT, ND
Skin: No rashes. No LE edema
Neuro: CN 2-12 intact, non-focal.
Psych: Normal mood and affect.
CTA C/A/P:
1. No CTA evidence for a thoracic or abdominal aortic dissection, intramural hematoma, or aneurysm.
2. Cardiomegaly.
3. Moderate emphysema.
4. Bilateral pleural effusions, moderate right and small left.
5. Mild abdominopelvic ascites.
6. Mild hepatomegaly and slight nodularity of the liver contour raising suspicion for the early changes of cirrhosis.
7. Urinary bladder wall thickening for which correlation with a urinalysis is recommended.
Echo: Left ventricle is mildly dilated. Severely reduced left ventricular systolic function. Left ventricular ejection fraction is 20-25%. Global hypokinesis. Mild/moderate mitral regurgitation. Right ventricle is dilated with reduced systolic
function. Mildly dilated aortic root. Sinus of Valsalva is 4.1 cm.
Acute HFrEF:
-echo above, EF 25%
-NICM, clean cath
-cont IV lasix, daily wts, I/Os
-cont GDMT: BB/Farxiga
-ARB held with hypotension
-midodrine for hypotension
Atrial fibrillation with RVR:
-RAVI attempted 03/12/24, imaging was stopped due to hypotension after administration of anesthesia. PAT thrombus seen, cont Eliquis.
-cont BB/cardizem
-cont Digoxin
Elevated LFTs/shock liver:
-improving with diuresis
-Alpha-1 antitrypsin negative
-CT Abd with findings suggesting early cirrhosis
FULL/Eliquis
Anticipated Discharge: > 48 hours
Subjective/Interval History
-
Date of Service: March 16, 2024
Objective Data
-
Labs:
Laboratory Results
03/16/24
04:32
Sodium 137
Potassium 4.7
Chloride 99
Carbon Dioxide 27
BUN 21 H
Creatinine 0.6 L
Glucose 93
Calcium 9.0
Vital Signs:
Vital Signs
Temp Pulse Resp BP Pulse Ox
98.4 F 92 19 102/79 94
03/16/24 04:37 03/16/24 04:26 03/16/24 04:26 03/16/24 04:26 03/15/24 22:47
I&O
03/15/24 03/16/24 03/17/24
06:59 06:59 06:59
Intake Total 1250 / 1250 180 / 180
Output Total 3850 / 3850 4000 / 4000
Balance -2600 / -2600 -3820 / -3820
[2024-03-16] MEDS: VITAMIN D3 (cholecalciferol) 50 MCG PO (08:27)
[2024-03-16] MEDS: FARXIGA 10 MG PO (08:27)
[2024-03-16] MEDS: MIRALAX PO (08:28)
[2024-03-16] MEDS: ProAmatine 10 MG PO ×3 (08:28→17:09)
[2024-03-16] MEDS: LASIX 40 MG IV (08:29)
--- NOTE | 2024-03-16 08:40 | W.PN.NEPH.PH ---
Today's Communication / Plan
-
Sign off
Assessment/Plan
-
Assessment
Diarrhea
Elevated LFTs
Atrial fibrillation rapid ventricular rate
Hyponatremia
hyperkalemia
metabolic acidosis
Hypotension
Emphysema noted on CT
early changes of cirrhosis on CT
Plan
Lites stable
Will sign off
-
-
Date of Service: March 16, 2024
CC / HPI / ROS
-
Chief Complaint:
Hypoantremia, met acidosis
History of Present Illness:
sodium up at 137
met acidosis resolved
LFTs improving
no fever
BP remains low on midodrine
Cr normal
lasix for decompensated HF
Creatinine 0.5
Review of Systems:
Nonoliguric
Labs
-
Labs:
WBC 8.0 10^3/uL (4.8-10.8) 03/15/24 04:06
RBC 4.23 10^6/uL (4.70-6.10) L 03/15/24 04:06
Hgb 14.4 g/dL (13.0-18.0) 03/15/24 04:06
Hct 41.5 % (39.0-52.0) 03/15/24 04:06
Plt Count 234 10^3/uL (130-400) 03/15/24 04:06
Sodium 137 mmol/L (135-145) 03/16/24 04:32
Potassium 4.7 mmol/L (3.5-5.1) 03/16/24 04:32
Chloride 99 mmol/L (98-107) 03/16/24 04:32
Carbon Dioxide 27 mmol/L (22-30) 03/16/24 04:32
BUN 21 mg/dl (9-20) H 03/16/24 04:32
Creatinine 0.6 mg/dL (0.7-1.3) L 03/16/24 04:32
eGFR > 60.00 03/16/24 04:32
Glucose 93 mg/dl (70-99) 03/16/24 04:32
Calcium 9.0 mg/dl (8.4-10.2) 03/16/24 04:32
Mjb-V-Lthkfeldvgq Pept 6310 pg/ml 03/07/24 16:18
Albumin 2.7 g/dl (3.5-5.0) L 03/14/24 05:27
Physical Exam
-
Vital Signs:
Vital Signs
Temp Pulse Resp BP Pulse Ox
98.4 F 92 19 93/65 94
03/16/24 04:37 03/16/24 04:26 03/16/24 04:26 03/16/24 08:26 03/15/24 22:47
Cardiovascular:: Regular rate and rhythm
Extremity Edema:: +1: Bilateral:
--- NOTE | 2024-03-16 08:56 | W.PN.CD ---
Today's Communication / Plan
-
Continue diltiazem, metoprolol and digoxin
If patient tolerates diltiazem then probably can be switched to extended release in a.m.
Impression / Plan
-
Mr. Robbins is a 53 year old man presenting with new onset heart failure symptoms, found to have a dilated cardiomyopathy with EF 20-25%, Afib w/ RVR, and no coronary artery disease on left heart cath. He is undergoing titration of GDMT and
management of Afib.
Hypotension is limiting medical therapy
- On midodrine 10 mg TID
- See: [facility] ([facility] 2022; 85(5): 2808�2813. Published online 2022November 08. doi: 10.1097/[id number] PMCID: [id number]: [id number] Use of midodrine in heart failure: a review
New nonischemic cardiomyopathy
- Some labs back: hemochromatosis very unlikely
- Adrenal insuf very unlikely
New HFrEF, severe
- ECHO 03/09/24: Severely reduced left ventricular systolic function - LVEF 20-25%. Global hypokinesis.
Mild/moderate mitral regurgitation.
-A-fib with poorly controlled ventricular response could be precipitating some of his global hypokinesis.
Newly found AFib, RVR -
- The RVR is much better controlled now.
- On Metoprolol 50 mg QD; Digoxin 250 mg QD, and Diltiazem 30 mg QID
- Will decrease Valsartan from 40 to 20 mg
Left atrial appendage thrombus
CT suggests comorbid conditions:
- Moderate emphysema by CT criteria, current smoker: told to quit
- Possible early cirrhosis
Abnormal troponin=> nonischemic myocardial injury in the setting of tachyarrhythmia and cardiomyopathy, peak troponin was on arrival, 0.343
Severely Abnormal LFT's, improving
-GI consult: hepatic congestion vs primary liver etiology
Current smoker, cessation recommended
Subjective:
He feeling ok no cp or sob.No palpitations.
Data:
RHC/LHC 03/10/24
HEMODYNAMIC DATA
LV 90/26 (EDP 29) mmHg
AO 100/81 (mean 87) mmHg
RA 23 mmHg
RV 44/20 (EDP 23) mmHg
PA 47/34 (mean 38) mmHg
PCWP 29 mmHg
CO/CI 4.3/2.3 L/min/m2
SVR 1195 dsc*-5
PVR 2.1 Wood Units
CORONARY ANGIOGRAPHY
Dominance: right
LM: large vessel without significant disease.
LAD: gives rise to a small D1 and moderate caliber D2. There is no CAD.
LCx: gives rise to a large OM1/ramus, small OM2, and small LPL branch. There is no CAD.
RCA: gives rise to a large RPDA and moderate caliber RPL branch. There is no CAD.
TTE 03/10/24
Left ventricle is mildly dilated. Severely reduced left ventricular systolic
function. Left ventricular ejection fraction is 20-25%.
Global hypokinesis.
Mild/moderate mitral regurgitation.
Right ventricle is dilated with reduced systolic function.
Mildly dilated aortic root. Sinus of Valsalva is 4.1 cm.
Physical Exam
Vital Signs/Labs
Vital Signs
Temp Pulse Resp BP Pulse Ox
98.4 F 92 19 93/65 94
03/16/24 04:37 03/16/24 04:26 03/16/24 04:26 03/16/24 08:26 03/15/24 22:47
03/15/24 03/16/24 03/17/24
06:59 06:59 06:59
Actual Weight 67.9 kg 64.1 kg
03/15/24 04:06
03/16/24 04:32
PT 19.2 Sec (11.4-14.6) H 03/12/24 05:19
INR 1.63 03/12/24 05:19
APTT 99.3 Sec (23.4-35.0) H 03/11/24 07:01
Magnesium Cancelled 03/07/24 16:53
Triglycerides 85 mg/dl (10-149) 03/08/24 03:56
LDL Cholesterol, Calc 95 mg/dl 03/08/24 03:56
VLDL Cholesterol, Calc 17 mg/dl (0-30) 03/08/24 03:56
HDL Cholesterol 15 mg/dl 03/08/24 03:56
03/07/24
16:18
Nyo-T-Iuoeojoftzd Pept 6310
Physical Exam
Constitutional: No acute distress and Comfortable
EENT: Anicteric and Moist mucous membranes
Cardiovascular: Pedal edema is absent, Rhythm/rate is irregular, JVD present and Systolic murmur present
Respiratory: Respiratory effort normal, Wheeze Absent and Crackles Absent
GI: Soft, Non tender and Normal bowel sounds
Neuro/Psych: Oriented, AO x 3 and Motor deficits absent
Data Reviewed
-
Date of Service: March 16, 2024
Medical Decision Making: Reviewed Test Results, Independent Historian Assessment and Test Interpretation
EKG: Tracing Personally Visualized and interpreted
Echo: Report Reviewed by me
Labs: Labs Reviewed by me
Old Records: Reviewed
[2024-03-16 10:48] LABS: Vitamin B1, Whole Blood 106 nmol/L (70-180)
[2024-03-16] MEDS: LANOXIN 250 MCG PO (12:26)
[2024-03-16] MEDS: COLACE PO (21:39)
[2024-03-16] MEDS: SENOKOT PO (21:39)
[2024-03-17] VITALS (10 sets, daily range): BP systolic 90–110; BP diastolic 68–78; BMI 19.5
--- NOTE | 2024-03-17 02:53 | PTCARENOTE ---
Pt AAOx3 with no complaints at this time. Pt vitals stable at this time. Assessment care and vitals as charted.
[2024-03-17 05:40] LABS: Hematocrit 42.2 % (39.0-52.0); Mean Corp Hgb Conc. 35.5 g/dL (33.0-37.0); Mean Corpuscular Hgb 34.5 pg (27.0-31.0); Platelet Count 196 10^3/uL (130-400); Red Blood Cell Count 4.35 10^6/uL (4.70-6.10); Red Cell Dist. Width 12.8 % (11.5-14.5); White Blood Cell Count 8.2 10^3/uL (4.8-10.8)
--- NOTE | 2024-03-17 08:23 | W.PN.HOSP.TC ---
Today's Communication/Plan
-
see bold
Assessment / Plan
Assessment / Plan
Gen: continues to remain NAD, AAOx3, appears chronically ill.
Eyes: EOMI, PERRLA, no scleral icterus.
Neck: supple.
CV: tachy, irreg/irreg, +S1/S2, no m/r/g.
Resp: decreased BS R base and midlung field
Abd: +BS, soft, NT, ND
Skin: No rashes. No LE edema
Neuro: CN 2-12 intact, non-focal.
Psych: Normal mood and affect.
CTA C/A/P:
1. No CTA evidence for a thoracic or abdominal aortic dissection, intramural hematoma, or aneurysm.
2. Cardiomegaly.
3. Moderate emphysema.
4. Bilateral pleural effusions, moderate right and small left.
5. Mild abdominopelvic ascites.
6. Mild hepatomegaly and slight nodularity of the liver contour raising suspicion for the early changes of cirrhosis.
7. Urinary bladder wall thickening for which correlation with a urinalysis is recommended.
Echo: Left ventricle is mildly dilated. Severely reduced left ventricular systolic function. Left ventricular ejection fraction is 20-25%. Global hypokinesis. Mild/moderate mitral regurgitation. Right ventricle is dilated with reduced systolic
function. Mildly dilated aortic root. Sinus of Valsalva is 4.1 cm.
Acute HFrEF:
-echo above, EF 25%
-NICM, clean cath
-cont IV lasix, daily wts, I/Os
-cont GDMT: BB/Farxiga
-ARB held with hypotension
-midodrine for hypotension
-check CXR
Atrial fibrillation with RVR:
-RAVI attempted 03/12/24, imaging was stopped due to hypotension after administration of anesthesia. PAT thrombus seen, cont Eliquis.
-cont BB/cardizem
-cont Digoxin
Elevated LFTs/shock liver:
-improving with diuresis
-Alpha-1 antitrypsin negative
-CT Abd with findings suggesting early cirrhosis
FULL/Eliquis
Total time spent on today's encounter was 50 minutes which included time spent in counseling the patient/family regarding diagnosis and treatment plan as listed above, goals of care, and symptom management. Case was discussed with nursing staff,
specialists, and care coordinators/case management. All labs and imaging personally reviewed by me. Remainder the time spent in detailed review of previous records, lab data, imaging, and other medical provider documentation.
Anticipated Discharge: > 48 hours
Subjective/Interval History
-
Date of Service: March 17, 2024
No new complaints.
Objective Data
-
Labs:
Laboratory Results
03/17/24
05:31
WBC 8.2
Hgb 15.0
Hct 42.2
Plt Count 196
Vital Signs:
Vital Signs
Temp Pulse Resp BP Pulse Ox
98.1 F 91 26 101/77 95
03/17/24 03:05 03/17/24 06:00 03/17/24 06:00 03/17/24 06:00 03/16/24 21:37
I&O
03/16/24 03/17/24 03/18/24
06:59 06:59 06:59
Intake Total 180 / 180 360 / 360
Output Total 4000 / 4000 3175 / 3175
Balance -3820 / -3820 -2815 / -2815
[2024-03-17] MEDS: ProAmatine 10 MG PO ×3 (08:24→17:27)
[2024-03-17] MEDS: LASIX 40 MG IV (08:25)
[2024-03-17] MEDS: FARXIGA 10 MG PO (08:25)
[2024-03-17] MEDS: TOPROL XL 50 MG PO (08:26)
[2024-03-17] MEDS: VITAMIN D3 (cholecalciferol) 50 MCG PO (08:26)
[2024-03-17] MEDS: CARDIZEM 30 MG PO ×4 (08:27→22:02)
[2024-03-17] MEDS: COLACE PO ×2 (08:27→19:44)
[2024-03-17] MEDS: MIRALAX PO (08:27)
[2024-03-17] MEDS: SENOKOT PO ×2 (08:27→19:44)
[2024-03-17] MEDS: ELIQUIS 5 MG PO ×2 (08:28→19:42)
[2024-03-17] MEDS: SODIUM BICARBONATE 650 MG PO (08:28)
--- NOTE | 2024-03-17 08:37 | PTCARENOTE ---
Pt AAOx3, AFIB controlled at this tme. Offering no complaints. No distress On RA. Lungs diminished
--- NOTE | 2024-03-17 09:37 | PTCARENOTE ---
Pt to CXR and back
[2024-03-17 09:43] LABS: ALT (SGPT) 182 U/L (0-50); AST (SGOT) 69 U/L (17-59); Albumin 3.4 g/dl (3.5-5.0); Alkaline Phosphatase 62 U/L (38-126); Blood Urea Nitrogen 17 mg/dl (9-20); Calcium 8.6 mg/dl (8.4-10.2); Carbon Dioxide 24 mmol/L (22-30); Chloride 98 mmol/L (98-107); Estimated Creatinine Clearance 121 ml/min; Glucose 67 mg/dl (70-99); Potassium 4.3 mmol/L (3.5-5.1); Sodium 136 mmol/L (135-145); Total Bilirubin 1.5 mg/dl (0.2-1.3); Total Protein 6.2 g/dl (6.3-8.2); eGFR > 60.00
--- NOTE | 2024-03-17 11:22 | W.PN.CD ---
Addendum entered and electronically signed by Matteo Avalos MD 03/17/24 15:37:
I saw and examined the patient.
The TECHNICAL ENGINEER's note was reviewed and I agree with the note.
Comment: 53 year old man presenting with new onset heart failure symptoms, found to have a dilated cardiomyopathy with EF 20-25%, Afib w/ RVR, and no coronary artery disease on left heart cath. He is undergoing titration of GDMT and management of
Afib.
- switching to long acting Dilt
- Cont IV lasix consider PO tomorrow
Original Note:
Today's Communication / Plan
-
Continue metoprolol and digoxin. Transition from short-acting to long acting diltiazem starting tomorrow (he has been tolerating 30 mg QID). Continue midodrine.
Continue Eliquis.
On IV Lasix and doing well with diuresis- I think he is close to PO transition
Impression / Plan
-
Mr. Robbins is a 53 year old man presenting with new onset heart failure symptoms, found to have a dilated cardiomyopathy with EF 20-25%, Afib w/ RVR, and no coronary artery disease on left heart cath. He is undergoing titration of GDMT and
management of Afib.
Hypotension is limiting medical therapy
- On midodrine 10 mg TID
- See: [facility] ([facility] 2022; 85(6): 2808�2813. Published online 2022November 08. doi: 10.1097/[id number] PMCID: [id number]: [id number] Use of midodrine in heart failure: a review
New nonischemic cardiomyopathy
- Some labs back: hemochromatosis very unlikely
- Adrenal insuf very unlikely
New HFrEF, severe
- ECHO 03/09/24: Severely reduced left ventricular systolic function - LVEF 20-25%. Global hypokinesis.
Mild/moderate mitral regurgitation.
-A-fib with poorly controlled ventricular response could be precipitating some of his global hypokinesis.
-weight down 10 kg this admit, edema improved, CXR today pending
-I think he is getting close to PO transition
Newly found AFib, RVR - persistent
- The RVR is much better controlled now.
- On Metoprolol 50 mg QD; Digoxin 250 mg QD, and Diltiazem 30 mg QID- will adjust diltiazem to long acting, as he has been tolerating it
Left atrial appendage thrombus:
-on Eliquis for OAC- continue
CT suggests comorbid conditions:
- Moderate emphysema by CT criteria, current smoker: told to quit
- Possible early cirrhosis
Abnormal troponin=> nonischemic myocardial injury in the setting of tachyarrhythmia and cardiomyopathy, peak troponin was on arrival, 0.343
Severely Abnormal LFT's, improving
-GI consult: hepatic congestion vs primary liver etiology
Current smoker, cessation recommended
Subjective:
Feeling fine, no complaints
Denies dizziness
Data:
RHC/LHC 03/10/24
HEMODYNAMIC DATA
LV 90/26 (EDP 29) mmHg
AO 100/81 (mean 87) mmHg
RA 23 mmHg
RV 44/20 (EDP 23) mmHg
PA 47/34 (mean 38) mmHg
PCWP 29 mmHg
CO/CI 4.3/2.3 L/min/m2
SVR 1195 dsc*-5
PVR 2.1 Wood Units
CORONARY ANGIOGRAPHY
Dominance: right
LM: large vessel without significant disease.
LAD: gives rise to a small D1 and moderate caliber D2. There is no CAD.
LCx: gives rise to a large OM1/ramus, small OM2, and small LPL branch. There is no CAD.
RCA: gives rise to a large RPDA and moderate caliber RPL branch. There is no CAD.
TTE 03/10/24
Left ventricle is mildly dilated. Severely reduced left ventricular systolic
function. Left ventricular ejection fraction is 20-25%.
Global hypokinesis.
Mild/moderate mitral regurgitation.
Right ventricle is dilated with reduced systolic function.
Mildly dilated aortic root. Sinus of Valsalva is 4.1 cm.
Physical Exam
Vital Signs/Labs
Vital Signs
Temp Pulse Resp BP Pulse Ox
98 F 108 22 97/75 94
03/17/24 07:15 03/17/24 08:27 03/17/24 08:00 03/17/24 08:25 03/17/24 08:00
03/16/24 03/17/24 03/18/24
06:59 06:59 06:59
Actual Weight 64.1 kg 60 kg
03/17/24 05:31
03/17/24 08:34
PT 19.2 Sec (11.4-14.6) H 03/12/24 05:19
INR 1.63 03/12/24 05:19
APTT 99.3 Sec (23.4-35.0) H 03/11/24 07:01
Magnesium Cancelled 03/07/24 16:53
Triglycerides 85 mg/dl (10-149) 03/08/24 03:56
LDL Cholesterol, Calc 95 mg/dl 03/08/24 03:56
VLDL Cholesterol, Calc 17 mg/dl (0-30) 03/08/24 03:56
HDL Cholesterol 15 mg/dl 03/08/24 03:56
03/07/24
16:18
Opi-V-Vomlcpusfxf Pept 6310
Physical Exam
Constitutional: No acute distress
EENT: Anicteric
Cardiovascular: Rhythm/rate is irregular
Respiratory: Respiratory effort normal and Lungs clear to auscul.
Neuro/Psych: AO x 3
Data Reviewed
-
Date of Service: March 17, 2024
EKG: Other (AFIB HR 80's)
Labs: Labs Reviewed by me
[2024-03-17] MEDS: LANOXIN 250 MCG PO (12:41)
--- NOTE | 2024-03-17 19:45 | PTCARENOTE ---
Received pt from day shift. Pt aaox3, afib on the monitor. 98% RA. VSS. no complaints at this time and is able to make needs known. Pt resting in bed with call claudio in reach.
[2024-03-18] VITALS (14 sets, daily range): BP systolic 89–136; BP diastolic 64–109; PULSE 54–86; BMI 19.3
[2024-03-18 06:42] LABS: ALT (SGPT) 168 U/L (0-50); AST (SGOT) 61 U/L (17-59); Albumin 3.9 g/dl (3.5-5.0); Alkaline Phosphatase 69 U/L (38-126); Blood Urea Nitrogen 19 mg/dl (9-20); Calcium 9.3 mg/dl (8.4-10.2); Carbon Dioxide 29 mmol/L (22-30); Chloride 96 mmol/L (98-107); Estimated Creatinine Clearance 102 ml/min; Glucose 90 mg/dl (70-99); Potassium 4.6 mmol/L (3.5-5.1); Sodium 136 mmol/L (135-145); Total Bilirubin 1.5 mg/dl (0.2-1.3); eGFR > 60.00
--- NOTE | 2024-03-18 08:06 | W.PN.HOSP.TC ---
Addendum entered and electronically signed by Efe Way MD 03/18/24 13:16:
s/p R thoracentesis for 600cc. Continue to monitor hemodynamics overnight with goal to discharge tomorrow.
Total time spent on today's encounter was 51 minutes which included time spent in counseling the patient/family regarding diagnosis and treatment plan as listed above, goals of care, and symptom management. Case was discussed with nursing staff,
specialists, and care coordinators/case management. All labs and imaging personally reviewed by me. Remainder the time spent in detailed review of previous records, lab data, imaging, and other medical provider documentation.
Original Note:
Today's Communication/Plan
-
possible d/c after R thorac
Assessment / Plan
Assessment / Plan
Gen: NAD, AAOx3, appears chronically ill.
Eyes: remains EOMI, PERRLA, no scleral icterus.
Neck: supple.
CV: remains tachy, irreg/irreg, +S1/S2, no m/r/g.
Resp: remains decreased BS R base and midlung field
Abd: +BS, soft, NT, ND
Skin: No rashes. No LE edema
Neuro: CN 2-12 intact, non-focal.
Psych: Normal mood and affect.
CTA C/A/P:
1. No CTA evidence for a thoracic or abdominal aortic dissection, intramural hematoma, or aneurysm.
2. Cardiomegaly.
3. Moderate emphysema.
4. Bilateral pleural effusions, moderate right and small left.
5. Mild abdominopelvic ascites.
6. Mild hepatomegaly and slight nodularity of the liver contour raising suspicion for the early changes of cirrhosis.
7. Urinary bladder wall thickening for which correlation with a urinalysis is recommended.
Echo: Left ventricle is mildly dilated. Severely reduced left ventricular systolic function. Left ventricular ejection fraction is 20-25%. Global hypokinesis. Mild/moderate mitral regurgitation. Right ventricle is dilated with reduced systolic
function. Mildly dilated aortic root. Sinus of Valsalva is 4.1 cm.
CXR: Moderate right pleural effusion. Underlying pneumonia and mediastinal excluded. Progressed.
Acute HFrEF:
-echo above, EF 25%
-NICM, clean cath
-has been diuresed with IV lasix, transition to PO lasix today
-daily wts, I/Os
-cont GDMT: BB/Farxiga
-ARB held with hypotension
-has been on midodrine for hypotension (hold today as BP now higher)
-CXR with worsening R pleural effusion. c/s IR for Tx thoracentesis.
Atrial fibrillation with RVR:
-RAVI attempted 03/12/24, imaging was stopped due to hypotension after administration of anesthesia. PAT thrombus seen, cont Eliquis.
-cont BB/cardizem/Digoxin
Elevated LFTs/shock liver:
-improving with diuresis
-Alpha-1 antitrypsin negative
-CT Abd with findings suggesting early cirrhosis
FULL/Eliquis
Anticipated Discharge: Within 24 hours
Subjective/Interval History
-
Date of Service: March 18, 2024
No new complaints.
Objective Data
-
Labs:
Laboratory Results
03/18/24
05:42
Sodium 136
Potassium 4.6
Chloride 96 L
Carbon Dioxide 29
BUN 19
Creatinine 0.7
Glucose 90
Calcium 9.3
Total Bilirubin 1.5 H
AST 61 H
ALT 168 H
Alkaline Phosphatase 69
Vital Signs:
Vital Signs
Temp Pulse Resp BP Pulse Ox
97.8 F 90 21 106/82 98
03/18/24 07:31 03/18/24 06:00 03/18/24 06:00 03/18/24 06:00 03/18/24 01:18
I&O
03/17/24 03/18/24 03/19/24
06:59 06:59 06:59
Intake Total 360 / 360 480 / 480
Output Total 3175 / 3175 2400 / 2400
Balance -2815 / -2815 -1919 / -1919
[2024-03-18] MEDS: SENOKOT 17.2 MG PO (08:41)
[2024-03-18] MEDS: CARDIZEM CD 120 MG PO (08:41)
[2024-03-18] MEDS: COLACE 100 MG PO (08:42)
[2024-03-18] MEDS: ProAmatine PO ×2 (08:42→08:57)
[2024-03-18] MEDS: SODIUM BICARBONATE 650 MG PO (08:42)
[2024-03-18] MEDS: FARXIGA 10 MG PO (08:42)
[2024-03-18] MEDS: TOPROL XL 50 MG PO (08:42)
[2024-03-18] MEDS: LASIX IV ×2 (08:43→08:56)
[2024-03-18] MEDS: VITAMIN D3 (cholecalciferol) 50 MCG PO (08:46)
[2024-03-18] MEDS: MIRALAX 17 GRAMS PO (08:46)
[2024-03-18] MEDS: ELIQUIS 5 MG PO ×2 (08:46→19:23)
--- NOTE | 2024-03-18 08:53 | W.PN.CD ---
Today's Communication / Plan
-
transition to po lasix
continue current rate control strategy
reassess PAT thrombus at 3-4 weeks, will arrange at f/u visit
Impression / Plan
-
Mr. Robbins is a 53 year old man presenting with new onset heart failure symptoms, found to have a dilated cardiomyopathy with EF 20-25%, Afib w/ RVR, and no coronary artery disease on left heart cath. He is undergoing titration of GDMT and
management of Afib.
Hypotension is limiting medical therapy
- On midodrine 10 mg TID
- See: [facility] ([facility] 2022; 85(1): 2808�2813. Published online 2022November 08. doi: 10.1097/[id number] PMCID: [id number]: [id number] Use of midodrine in heart failure: a review
New nonischemic cardiomyopathy
- Some labs back: hemochromatosis very unlikely
- Adrenal insuf very unlikely
New HFrEF, severe
- ECHO 03/09/24: Severely reduced left ventricular systolic function - LVEF 20-25%. Global hypokinesis.
Mild/moderate mitral regurgitation.
-A-fib with poorly controlled ventricular response could be precipitating some of his global hypokinesis.
-weight down 13 kg this admit, edema improved, CXR with moderate right effusion, planned for thoracentesis
-will transition to 40mg po lasix daily now
-will arrange CHF FOLLOW UP
Newly found AFib, RVR - persistent
- The RVR is much better controlled now.
- On Metoprolol 50 mg QD; Digoxin 250 mg QD, and Diltiazem 120mg (will discontinue when rhythm controlled as op)
Left atrial appendage thrombus:
-on Eliquis for OAC- continue
CT suggests comorbid conditions:
- Moderate emphysema by CT criteria, current smoker: told to quit
- Possible early cirrhosis
Abnormal troponin=> nonischemic myocardial injury in the setting of tachyarrhythmia and cardiomyopathy, peak troponin was on arrival, 0.343
Severely Abnormal LFT's, improving
-GI consult: hepatic congestion vs primary liver etiology
Current smoker, cessation recommended
Subjective:
Feeling fine, no complaints
Denies dizziness, sob
Data:
RHC/LHC 03/10/24
HEMODYNAMIC DATA
LV 90/26 (EDP 29) mmHg
AO 100/81 (mean 87) mmHg
RA 23 mmHg
RV 44/20 (EDP 23) mmHg
PA 47/34 (mean 38) mmHg
PCWP 29 mmHg
CO/CI 4.3/2.3 L/min/m2
SVR 1195 dsc*-5
PVR 2.1 Wood Units
CORONARY ANGIOGRAPHY
Dominance: right
LM: large vessel without significant disease.
LAD: gives rise to a small D1 and moderate caliber D2. There is no CAD.
LCx: gives rise to a large OM1/ramus, small OM2, and small LPL branch. There is no CAD.
RCA: gives rise to a large RPDA and moderate caliber RPL branch. There is no CAD.
TTE 03/10/24
Left ventricle is mildly dilated. Severely reduced left ventricular systolic
function. Left ventricular ejection fraction is 20-25%.
Global hypokinesis.
Mild/moderate mitral regurgitation.
Right ventricle is dilated with reduced systolic function.
Mildly dilated aortic root. Sinus of Valsalva is 4.1 cm.
Physical Exam
Vital Signs/Labs
Vital Signs
Temp Pulse Resp BP Pulse Ox
97.8 F 90 21 106/82 98
03/18/24 07:31 03/18/24 06:00 03/18/24 06:00 03/18/24 06:00 03/18/24 01:18
03/17/24 03/18/24 03/19/24
06:59 06:59 06:59
Actual Weight 60 kg 59.2 kg
03/17/24 05:31
03/18/24 05:42
PT 19.2 Sec (11.4-14.6) H 03/12/24 05:19
INR 1.63 03/12/24 05:19
APTT 99.3 Sec (23.4-35.0) H 03/11/24 07:01
Magnesium Cancelled 03/07/24 16:53
Triglycerides 85 mg/dl (10-149) 03/08/24 03:56
LDL Cholesterol, Calc 95 mg/dl 03/08/24 03:56
VLDL Cholesterol, Calc 17 mg/dl (0-30) 03/08/24 03:56
HDL Cholesterol 15 mg/dl 03/08/24 03:56
03/07/24
16:18
Zos-U-Mpqcyfejloj Pept 6310
Physical Exam
Constitutional: No acute distress
Cardiovascular: Pedal edema is absent, JVD pressure is normal, Systolic murmur absent, Diastolic murmur absent and Rhythm/rate is irregular
Respiratory: Respiratory effort normal, Lungs clear to auscul., Wheeze Absent, Crackles Absent and Rhonchi Absent
Neuro/Psych: AO x 3
Data Reviewed
-
Date of Service: March 18, 2024
EKG: Other (aflutter 70-110's)
--- NOTE | 2024-03-18 09:14 | PTCARENOTE ---
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
[2024-03-18 10:13] LABS: Body Fluid pH 7.48
[2024-03-18 10:25] LABS: Body Fluid LDH 215 U/L; Body Fluid Protein 3.1 g/dl
[2024-03-18] MEDS: LANOXIN 250 MCG PO (10:33)
[2024-03-18] MEDS: LASIX 40 MG PO (10:33)
[2024-03-18 10:35] LABS: Body Fluid Mononuclear 88.9 %; Body Fluid Polymorphonuclear 11.1 %; Body Fluid WBC 1594 /CUMM
[2024-03-18 10:39] LABS: Body Fluid Second Tech EM
[2024-03-18 11:40] LABS: LDH 274 U/L (120-246)
[2024-03-18] MEDS: ProAmatine 10 MG PO ×2 (15:01→19:23)
--- NOTE | 2024-03-18 15:39 | CM ---
Patient with Dx HF, new Afib with RVR, Left atrial appendage thrombus, Elevated LFTs/shock liver, s/p thoracentesis today. Room air. Receiving PO midodrine.
Met with patient who states he is feeling well today. He anticipates being discharged home tomorrow.
Plan home.
[2024-03-18] MEDS: COLACE PO (19:23)
[2024-03-18] MEDS: SENOKOT PO (19:24)
--- NOTE | 2024-03-18 21:00 | PTCARENOTE ---
pt tele level of care, pt transferred to 4W, report given to RN. pt transferred with all belongings without issues.
--- NOTE | 2024-03-18 21:49 | PTCARENOTE ---
Patient transfered via wheelchair from IMU around 20:45. AAOX3. Pleasant and cooperative with care. No c/o pain or discomfort. Oriented to unit. Call claudio within reach.
[2024-03-19 03:49] VITALS: BP 104/74
[2024-03-19 06:00] VITALS: BMI 19.1
[2024-03-19 07:00] VITALS: BP 105/70
[2024-03-19 07:51] LABS: Hematocrit 46.1 % (39.0-52.0); Hemoglobin 15.7 g/dL (13.0-18.0); Mean Corp Hgb Conc. 34.1 g/dL (33.0-37.0); Mean Corpuscular Hgb 33.8 pg (27.0-31.0); Mean Corpuscular Volume 99.1 fL (80.0-94.0); Mean Platelet Volume 9.9 fL (7.4-10.4); Platelet Count 200 10^3/uL (130-400); Red Blood Cell Count 4.65 10^6/uL (4.70-6.10); Red Cell Dist. Width 12.9 % (11.5-14.5); White Blood Cell Count 6.6 10^3/uL (4.8-10.8)
[2024-03-19] MEDS: TOPROL XL 50 MG PO (08:05)
[2024-03-19] MEDS: CARDIZEM CD 120 MG PO (08:05)
[2024-03-19] MEDS: FARXIGA 10 MG PO (08:06)
[2024-03-19] MEDS: ELIQUIS 5 MG PO (08:06)
[2024-03-19] MEDS: VITAMIN D3 (cholecalciferol) 50 MCG PO (08:06)
[2024-03-19] MEDS: LASIX 40 MG PO (08:06)
[2024-03-19] MEDS: SENOKOT 17.2 MG PO (08:06)
[2024-03-19] MEDS: SODIUM BICARBONATE 650 MG PO (08:06)
[2024-03-19] MEDS: ProAmatine 10 MG PO (08:06)
[2024-03-19] MEDS: COLACE 100 MG PO (08:06)
[2024-03-19] MEDS: MIRALAX 17 GRAMS PO (08:07)
--- NOTE | 2024-03-19 08:30 | W.PN.HOSP.TC ---
Today's Communication/Plan
-
d/c
Assessment / Plan
Assessment / Plan
Gen: remains NAD, AAOx3, appears chronically ill.
Eyes: EOMI, PERRLA, no scleral icterus.
Neck: supple.
CV: irreg/irreg, +S1/S2, no m/r/g.
Resp: rales in the R base
Abd: +BS, soft, NT, ND
Skin: No rashes. No LE edema
Neuro: CN 2-12 intact, non-focal.
Psych: Normal mood and affect.
CTA C/A/P:
1. No CTA evidence for a thoracic or abdominal aortic dissection, intramural hematoma, or aneurysm.
2. Cardiomegaly.
3. Moderate emphysema.
4. Bilateral pleural effusions, moderate right and small left.
5. Mild abdominopelvic ascites.
6. Mild hepatomegaly and slight nodularity of the liver contour raising suspicion for the early changes of cirrhosis.
7. Urinary bladder wall thickening for which correlation with a urinalysis is recommended.
Echo: Left ventricle is mildly dilated. Severely reduced left ventricular systolic function. Left ventricular ejection fraction is 20-25%. Global hypokinesis. Mild/moderate mitral regurgitation. Right ventricle is dilated with reduced systolic
function. Mildly dilated aortic root. Sinus of Valsalva is 4.1 cm.
CXR: Moderate right pleural effusion. Underlying pneumonia and mediastinal excluded. Progressed.
Acute HFrEF:
-echo above, EF 25%
-NICM, clean cath
-was diuresed with IV lasix, now transitioned to PO lasix
-daily wts, I/Os
-cont GDMT: BB/Farxiga
-ARB held with hypotension
-has been on midodrine for hypotension (hold today as BP now higher)
-CXR with worsening R pleural effusion. s/p R thoracentesis for 600cc on 03/18/24
Atrial fibrillation with RVR:
-RAVI attempted 03/12/24, imaging was stopped due to hypotension after administration of anesthesia. PAT thrombus seen, cont Eliquis.
-cont BB/cardizem/Digoxin
Elevated LFTs/shock liver:
-improving with diuresis
-Alpha-1 antitrypsin negative
-CT Abd with findings suggesting early cirrhosis
FULL/Eliquis
Total time spent on d/c = 35 min. This included today's physical exam, progress note, review of laboratory and diagnostic data, preparation of discharge documents and prescriptions, and discussions about the pt's hospital course and discharge plan
with the patient and other medical oncology physician involved in the patient's care.
Anticipated Discharge: Today
Subjective/Interval History
-
Date of Service: March 19, 2024
I feel good.
Objective Data
-
Labs:
Laboratory Results
03/19/24
07:41
WBC 6.6
Hgb 15.7
Hct 46.1
Plt Count 200
Vital Signs:
Vital Signs
Temp Pulse Resp BP Pulse Ox
98.0 F 84 18 104/74 100
03/19/24 03:49 03/19/24 03:49 03/19/24 03:49 03/19/24 03:49 03/19/24 03:49
I&O
03/18/24 03/19/24 03/20/24
06:59 06:59 06:59
Intake Total 480 / 480 720 / 720
Output Total 2400 / 2400 300 / 300
Balance -1920 / -1920 420 / 420
--- NOTE | 2024-03-19 09:22 | CM ---
Patient is for discharge to home today, patient is on room air, plan is to home no needs.
Plan; Home no needs.
--- NOTE | 2024-03-19 09:42 | W.PN.CD ---
Today's Communication / Plan
-
ok to discharge home
Impression / Plan
-
Mr. Robbins is a 53 year old man presenting with new onset heart failure symptoms, found to have a dilated cardiomyopathy with EF 20-25%, Afib w/ RVR, and no coronary artery disease on left heart cath. He is undergoing titration of GDMT and
management of Afib.
Hypotension is limiting medical therapy
- On midodrine 10 mg TID
- See: [facility] ([facility] 2022; 85(6): 2808�2813. Published online 2022November 08. doi: 10.1097/[id number] PMCID: [id number]: [id number] Use of midodrine in heart failure: a review
New nonischemic cardiomyopathy
- Some labs back: hemochromatosis very unlikely
- Adrenal insuf very unlikely
-OP CMR recommended
New HFrEF, severe
- ECHO 03/09/24: Severely reduced left ventricular systolic function - LVEF 20-25%. Global hypokinesis.
Mild/moderate mitral regurgitation.
-A-fib with poorly controlled ventricular response could be precipitating some of his global hypokinesis.
-weight down 13 kg this admit, edema improved, CXR with moderate right effusion, s/p thoracentesis
-continue 40mg po lasix daily now
-will arrange CHF FOLLOW UP/would delay cardiac rehab until issues with rhythm are resolved
Newly found AFib, RVR - persistent
- The RVR is much better controlled now but will not be perfect.
- On Metoprolol 50 mg QD; Digoxin 250 mg QD, and Diltiazem 120mg (will discontinue when rhythm controlled as op)
Left atrial appendage thrombus:
-on Eliquis for OAC- continue
CT suggests comorbid conditions:
- Moderate emphysema by CT criteria, current smoker: told to quit
- Possible early cirrhosis
Abnormal troponin=> nonischemic myocardial injury in the setting of tachyarrhythmia and cardiomyopathy, peak troponin was on arrival, 0.343
Severely Abnormal LFT's, improving
-GI consult: hepatic congestion vs primary liver etiology
Current smoker, cessation recommended
Subjective:
Feeling fine, no complaints
Denies dizziness, sob
Data:
RHC/LHC 03/10/24
HEMODYNAMIC DATA
LV 90/26 (EDP 29) mmHg
AO 100/81 (mean 87) mmHg
RA 23 mmHg
RV 44/20 (EDP 23) mmHg
PA 47/34 (mean 38) mmHg
PCWP 29 mmHg
CO/CI 4.3/2.3 L/min/m2
SVR 1195 dsc*-5
PVR 2.1 Wood Units
CORONARY ANGIOGRAPHY
Dominance: right
LM: large vessel without significant disease.
LAD: gives rise to a small D1 and moderate caliber D2. There is no CAD.
LCx: gives rise to a large OM1/ramus, small OM2, and small LPL branch. There is no CAD.
RCA: gives rise to a large RPDA and moderate caliber RPL branch. There is no CAD.
TTE 03/10/24
Left ventricle is mildly dilated. Severely reduced left ventricular systolic
function. Left ventricular ejection fraction is 20-25%.
Global hypokinesis.
Mild/moderate mitral regurgitation.
Right ventricle is dilated with reduced systolic function.
Mildly dilated aortic root. Sinus of Valsalva is 4.1 cm.
Physical Exam
Vital Signs/Labs
Vital Signs
Temp Pulse Resp BP Pulse Ox
97.6 F 77 16 105/70 99
03/19/24 07:00 03/19/24 07:00 03/19/24 07:00 03/19/24 07:00 03/19/24 07:00
03/18/24 03/19/24 03/20/24
06:59 06:59 06:59
Actual Weight 59.2 kg 58.74 kg
03/19/24 07:41
03/18/24 05:42
PT 19.2 Sec (11.4-14.6) H 03/12/24 05:19
INR 1.63 03/12/24 05:19
APTT 99.3 Sec (23.4-35.0) H 03/11/24 07:01
Magnesium Cancelled 03/07/24 16:53
Triglycerides 85 mg/dl (10-149) 03/08/24 03:56
LDL Cholesterol, Calc 95 mg/dl 03/08/24 03:56
VLDL Cholesterol, Calc 17 mg/dl (0-30) 03/08/24 03:56
HDL Cholesterol 15 mg/dl 03/08/24 03:56
03/07/24
16:18
Mai-M-Aqrrfjvramn Pept 6310
Physical Exam
Constitutional: No acute distress
Cardiovascular: Pedal edema is absent, JVD pressure is normal and Rhythm/rate is irregular
Respiratory: Respiratory effort normal, Lungs clear to auscul., Wheeze Absent and Crackles Absent
Neuro/Psych: AO x 3
Data Reviewed
-
Date of Service: March 19, 2024
Medical Decision Making: Review of Case with other Provider (aflutter with variable rates)
[2024-03-19 11:00] VITALS: BP 115/84
--- NOTE | 2024-03-19 15:09 | W.DCSUMMARY ---
Discharge Summary
Discharge Data
Date of Admission: 03/07/24
Date of Discharge: 03/19/24
-
Pending Results: No
Hospital Course
Primary diagnoses:
Acute heart failure with reduced ejection fraction
Atrial fibrillation with rapid ventricular response
Shock liver
Hypervolemic hyponatremia
Nonischemic myocardial injury
Secondary diagnoses:
None
Consultants:
Cardiology
Gastroenterology
Nephrology
Imaging:
CTA C/A/P:
1. No CTA evidence for a thoracic or abdominal aortic dissection, intramural hematoma, or aneurysm.
2. Cardiomegaly.
3. Moderate emphysema.
4. Bilateral pleural effusions, moderate right and small left.
5. Mild abdominopelvic ascites.
6. Mild hepatomegaly and slight nodularity of the liver contour raising suspicion for the early changes of cirrhosis.
7. Urinary bladder wall thickening for which correlation with a urinalysis is recommended.
Cardiac cath (RHC/LHC):
1. Normal coronary arteries in a right dominant system.
2. Elevated biventricular filling pressures with mildly reduced cardiac output.
Echo: Left ventricle is mildly dilated. Severely reduced left ventricular systolic function. Left ventricular ejection fraction is 20-25%. Global hypokinesis. Mild/moderate mitral regurgitation. Right ventricle is dilated with reduced systolic
function. Mildly dilated aortic root. Sinus of Valsalva is 4.1 cm.
CXR 03/17/24: Moderate right pleural effusion. Underlying pneumonia and mediastinal excluded. Progressed.
53-year-old male who presented with chief complaints of abdominal pain, diarrhea, palpitations as outlined in the H&P done on admission. Hospital course per problem list:
Acute HFrEF: Echo above and notable for ejection fraction of 25%. The patient had a cardiac catheterization (RHC/LHC) without obstructive coronary disease (nonischemic cardiomyopathy). The patient was diuresed with IV Lasix and then transition to
oral Lasix. He was placed on beta-ge and Farxiga. He was unable to be started on ARB/Entresto due to hypotension. He was placed on midodrine for hypotension. He underwent a right-sided thoracentesis on 03/18/24 for 600cc.
Atrial fibrillation with RVR: The patient was initially placed Cardizem and heparin drips. RAVI was attempted on 03/12/24, imaging was stopped due to hypotension after administration of anesthesia. PAT thrombus was seen. He was transitioned from
heparin gtt to Eliquis. While hospitalized his medications were adjusted and he was started on beta-ge, oral Cardizem, and digoxin. His rates were optimized is much as possible but at the time of discharge, as per discussion with cardiology,
he will have episodes of RVR in the near future.
Elevated LFTs/shock liver: This was due to acute heart failure with reduced ejection fraction. His LFTs improved with diuresis. Alpha-[address] abdomen above with findings suggesting early cirrhosis.
Discharge Plan
-
Patient Disposition: Home (Routine Discharge)
Discharge Diagnosis/Procedures: Acute heart failure with reduced ejection fraction
Condition: Good
Diet: 2 Gram Sodium and Restrict fluids to 48 oz
Activity: No strenuous activity
Driving Restrictions: No driving for 24 hours
Specialty Instructions: Weigh Daily- Call MD for wt gain/loss 3 lbs overnight/5 lbs in 1 week
Instructions: *CBC Heart Failure Instructions
Stand Alone Forms: DC Instructions- Cath/EP Lab
Referrals:
Carlos Kendall MD [Active] - (GI follow up 3-4 weeks with elevated liver function and changes of cirrhosis)
Tanika Schultz CRNP [Specified Professional Personl] - 03/27/24 9:20 am (Cardiology followup appointment)
Gregorio Milton MD [Family Provider] -
Prescriptions:
New
furosemide 40 mg Tablet
40 mg PO DAILY Qty: 30 0RF
metoprolol succinate 50 mg Tablet Extended Release 24 Hr
50 mg PO DAILY Qty: 30 0RF
midodrine 5 mg Tablet
10 mg PO TID@0800,1300,1800 Qty: 180 0RF
digoxin 250 mcg (0.25 mg) Tablet
250 mcg PO NOON Qty: 30 0RF
sodium bicarbonate 650 mg Tablet
650 mg PO DAILY Qty: 30 0RF
diltiazem HCl 120 mg Capsule,Extended Release 24hr
120 mg PO DAILY Qty: 30 0RF
cholecalciferol (vitamin D3) 50 mcg (2,000 unit) Tablet
50 mcg PO DAILY Qty: 30 0RF
Eliquis 5 mg Tablet
5 mg PO BID Qty: 60 0RF
dapagliflozin propanediol 10 mg Tablet
10 mg PO DAILY Qty: 30 0RF
Discharge Orders:
Discharge Patient (As Directed); Ordered 03/19/24
Ordered By: Efe Way
Discharge Date and Time
Discharge Date/Time: 03/19/24 12:00
Print Language: [place] CITIZ[place]
--- NOTE | 2024-03-21 10:09 | W.HF.CON ---
Heart Failure
- LV Function
Left ventricular function study result: LV Ejection fraction </= 35%
Ejection Fraction Percentage: 20-25
- ARNI
Patient already on ARNI: No
Heart Failure ARNI Contraindication: Hypotension
- ACEI/ARB
Patient already on ACEI/ARB: No
Heart Failure ACEI/ARB Contraindication: Hypotension
- Beta Amna
Patient already on Evidence Based Beta Amna: Yes
- Mineralocorticord Receptor Antagonist
Patient already on MRA: No
Heart Failure MRA Contraindication: Hypotension
- SGLT-2 Inhibitor
Patient already on SGLT-2 Inhibitor: Yes
- Afib Anticoagulation
Patient already on Anticoagulation for Afib: Yes
- NYHA CHF Classification
NYHA CHF Classification Level: Class III - Symptoms w/ min exertion, interferes w/ nml daily activity (current smoker)
- ACC/AHA Stage
ACC/AHA Stage: Stage C: Symptomatic Heart Failure
== END 2024-03-19 12:00 | disposition home or self-care (01) | DRG 286 ==
LOC: 4 WEST ACU 20:10
PROVIDERS: Emergency Medicine; Hospitalist; Internal Medicine; Nurse Practitioner Adult Health; Nurse Practitioner Gerontology; Physician Assistant; Radiology Vascular & Interventional Radiology; Specialist; Student in an Organized Health Care Education/Training Program; ADMITTING PHYSICIAN Hospitalist; ATTENDING PHYSICIAN Internal Medicine; CONSULT PHYSICIAN Internal Medicine; CONSULT PHYSICIAN Internal Medicine Gastroenterology; CONSULT PHYSICIAN Specialist; EMERGENCY PHYSICIAN Emergency Medicine; FAMILY PHYSICIAN Student in an Organized Health Care Education/Training Program
PROC: B2111ZZ Fluoroscopy of Multiple Coronary Arteries using Low Osmolar Contrast (ICD-10-PCS; 2024-03-10)
PROC: 4A023N8 Measurement of Cardiac Sampling and Pressure, Bilateral, Percutaneous Approach (ICD-10-PCS; 2024-03-10)
PROC: 0W993ZX Drainage of Right Pleural Cavity, Percutaneous Approach, Diagnostic (ICD-10-PCS; 2024-03-18)
DX: I48.19 Other persistent atrial fibrillation (principal); I50.21 Acute systolic (congestive) heart failure; K72.00 Acute and subacute hepatic failure without coma; E87.1 Hypo-osmolality and hyponatremia; E87.20 Acidosis, unspecified; J91.8 Pleural effusion in other conditions classified elsewhere; R18.8 Other ascites; I5A Non-ischemic myocardial injury (non-traumatic); D68.9 Coagulation defect, unspecified; K74.60 Unspecified cirrhosis of liver; J43.9 Emphysema, unspecified; R16.0 Hepatomegaly, not elsewhere classified; I95.9 Hypotension, unspecified; I51.3 Intracardiac thrombosis, not elsewhere classified; E87.5 Hyperkalemia; F17.210 Nicotine dependence, cigarettes, uncomplicated; R19.7 Diarrhea, unspecified; R10.32 Left lower quadrant pain
CPT/HCPCS: 88305; 32555; 71045; 71046; 71275; 74174; 76700; 80048; 80053; 80061; 81003; 81015; 82103; 82248; 82306; 82379; 82533; 82570; 82728; 83540; 83550; 83615; 83690; 83735; 83835; 83880; 83935; 83986; 84156; 84157; 84300; 84425; 84443; 84466; 84484; 85025; 85027; 85610; 85730; 86038; 86705; 86706; 86709; 86803; 87015; 87045; 87046; 87070; 87086; 87205; 87328; 87329; 87340; 87389; 87427; 87811; 88112; 89051; 93005; 93306; 93312; 93320; 93325; 93460; 93975; 96361; 96374; 96375; 96376; 99291; 99406; C1894; J1160; Q9967

== ENCOUNTER 2024-05-20 09:38 | Day surgery (SDC) | payer OTHER, SELFPAY ==
[2024-05-20 10:41] VITALS: BMI 23.1
== END 2024-05-20 12:51 | disposition home or self-care (01) ==
LOC: CATH 09:38
PROVIDERS: ATTENDING PHYSICIAN Student in an Organized Health Care Education/Training Program; FAMILY PHYSICIAN Student in an Organized Health Care Education/Training Program; OTHER PHYSICIAN Student in an Organized Health Care Education/Training Program
DX: I48.19 Other persistent atrial fibrillation (principal); I08.3 Combined rheumatic disorders of mitral, aortic and tricuspid valves; I50.20 Unspecified systolic (congestive) heart failure; I42.8 Other cardiomyopathies; Z87.891 Personal history of nicotine dependence; Z79.01 Long term (current) use of anticoagulants
CPT/HCPCS: 93312; 93320; 93325; 92960; 93005

== ENCOUNTER → 2024-06-17 07:34 | Outpatient (REF) | payer OTHER, SELFPAY | LOC: MRI 07:34 | PROVIDERS: ATTENDING PHYSICIAN Student in an Organized Health Care Education/Training Program; FAMILY PHYSICIAN Student in an Organized Health Care Education/Training Program | DX: I50.21 Acute systolic (congestive) heart failure (principal) | CPT/HCPCS: 75561; 75565; A9575; A9585 ==

== ENCOUNTER 2024-08-31 09:02 | Emergency (ER) | payer OTHER, SELFPAY ==
[2024-08-31] VITALS (13 sets, daily range): BP systolic 94–134; BP diastolic 70–110
[2024-08-31 09:22] LABS: Hematocrit 41.4 % (39.0-52.0); Hemoglobin 14.3 g/dL (13.0-18.0); Mean Corp Hgb Conc. 34.5 g/dL (33.0-37.0); Mean Corpuscular Hgb 32.5 pg (27.0-31.0); Mean Corpuscular Volume 94.1 fL (80.0-94.0); Mean Platelet Volume 9.8 fL (7.4-10.4); Platelet Count 217 10^3/uL (130-400); Red Cell Dist. Width 12.9 % (11.5-14.5); White Blood Cell Count 8.4 10^3/uL (4.8-10.8)
--- NOTE | 2024-08-31 09:27 | ED.GENMED ---
History of Present Illness
General
Chief Complaint: Heart Rate Problem
Time Seen by Provider: 08/31/24 09:27
History of Present Illness
History of Present Illness:
TIME OF INITIAL ENCOUNTER: 9:30 AM
HPI: The patient presents due to concerns of recurrence of atrial fibrillation. He is on Eliquis. He has no chest pain or shortness of breath. He has no weight gain or lower extremity edema. His watch also told him that he was in atrial
fibrillation. He states that his heart rate was in the 150s earlier and could sense palpitations more but currently has minimal symptoms with rates currently in the 130s.
EXAM:
GENERAL: Well appearing in no distress
HEENT: Moist oral mucosa
CARDIOVASCULAR: No murmurs, tachycardic heart rate, irregular rhythm, No chest wall tenderness
PULMONARY: No respiratory distress, breath sounds are clear and equal
ABDOMEN: Soft with no peritoneal signs, no tenderness
NEUROLOGIC: Excellent strength all extremities, no coordination deficits
PSYCHIATRIC: Appropriate mental status, normal insight and judgement
EXTREMITIES: Nontender, no edema, moves all extremities equally
SKIN: No rash, no lesions
NUMBER AND COMPLEXITY OF PROBLEMS ADDRESSED AT THE ENCOUNTER
� Chronic conditions affecting care: History of atrial fibrillation, cardiomyopathy/CHF
� Acute Exacerbation and/or Progression of Chronic Illness: This is an acute problem
� Differential Diagnosis includes: Recurrence of atrial fibrillation, electrolyte abnormality
AMOUNT AND/OR COMPLEXITY OF DATA TO BE REVIEWED AND ANALYZED
� I performed an independent evaluation of and my interpretation is:
EKG: A-fib, ventricular rate 132, nonspecific ST abnormality likely rate related atrial fibrillation
CT:
X-rays:
Laboratory Studies: CBC unremarkable, chemistries unremarkable other than slightly elevated BUN
Other:
� Review of other/old records: I reviewed records. The patient was admitted March 07, 2024 through March 19, 2024 and at that time he had acute heart failure with reduced ejection fraction, A-fib with RVR, shock liver and
nonischemic myocardial injury. He had normal coronaries at that time by cardiac cath. Echo showed an EF of 20 to 25%. The patient was seen here 05/20/2024 and had a electrical cardioversion with Dr. Guillory. At that time it was noted that he had
moderately reduced LV systolic function. EF at that time was 40 to 45%.
� Clinical information was obtained by an independent historian: Spoke to
� Prescriptions/Medications Considered but not given:
� Further testing considered but not performed:
RISK OF COMPLICATIONS AND/OR MORBIDITY OR MORTALITY OF PATIENT MANAGEMENT
� Social determinants of health affecting care: Lives at home
� Discussion with other providers: Notified Dr. Zimmerman of patient's presentation.
� Escalation of care including admission/observation vs risk of discharge considered: Known to [facility]. Admitted for 2 weeks in Feb w/ EF 20-25%, shock liver, new onset rapid AFib. Clean coronaries by cath then. Pastora did
cardioversion 05/20/24 and echo then improved to 40-45%. Here w/ palpitations, in rapid AFib rates 130s-140s. No longer on dig nor diltiazem. On Entresto, Farxiga, Metoprolol.
Says there is talk of ablation in future. States has not missed any Eliquis doses.
ANY OTHER UPDATES:
10:10 AM: The patient was cardioverted x 2. He received a total of 100 mg of propofol by the first attempt and then an additional 40 mg by the second attempt. He then successfully cardioverted to a sinus rhythm.
EKG #2: Sinus 74, no acute ST abnormality
Phy Exam
Physical Exam
Physical Exam:
See HPI
Course
Orders/Labs/Results
Orders:
Orders
08/31/24 09:03
Electrocardiogram (*1) Urgent
Reason for Study: Tachycardia
EKG- Treatment ONCE
08/31/24 09:16
Complete Blood Count/With Diff Urgent
Comprehensive Metabolic Panel Urgent
Prothrombin Time Urgent
08/31/24 09:53
Propofol [Diprivan] 20 ml .ROUTE .STK-MED
08/31/24 10:14
Propofol [Diprivan] 20 ml .ROUTE .STK-MED
08/31/24 10:33
Electrocardiogram (*1) Urgent
Reason for Study: Atrial Fibrillation
EKG- Treatment ONCE
Abnormal Lab Results
08/31/24
09:16
RBC 4.40 L 10^6/uL
(4.70-6.10)
MCV 94.1 H fL
(80.0-94.0)
MCH 32.5 H pg
(27.0-31.0)
PT 14.8 H Sec
(11.4-14.6)
Carbon Dioxide 21 L mmol/L
(22-30)
BUN 24 H mg/dl
(9-20)
Glucose 147 H mg/dl
(70-99)
08/31/24 09:16
08/31/24 09:16
Vital Signs
Initial and Last Documented VS:
Initial Vital Signs
Temp Pulse Resp BP Pulse Ox
36.7 C 110 17 115/77 94
08/31/24 09:06 08/31/24 09:06 08/31/24 09:06 08/31/24 09:06 08/31/24 09:06
Last Documented Vital Signs
Temp Pulse Resp BP Pulse Ox
36.7 C 78 16 114/74 95
08/31/24 09:06 08/31/24 10:46 08/31/24 10:46 08/31/24 10:46 08/31/24 10:46
Procedures
Cardioversion
Indication:: Afib
Performed by:: , Dr. Kevin
Synchronized?: Yes
Energy Used: 200 joules
Number of attempts: 2
Successful?: Yes
Complications: The patient did briefly become hypotensive after the first attempt at cardioversion
ASA Risk Score: Class II
Any reaction or bad outcome to prior sedation/anesthesia?: No history of a reaction
Sedation level to be attained: moderate
Chart and allergies reviewed: Yes
Patient reassessed prior to sedation: Yes
Time out completed at (validating right patient & procedure): 10:10
History of difficult intubation: No
Airway free of obstruction: Yes
Patient has a gag reflex: Yes
Patient is able to open mouth: Yes
Patient has no dentures: Yes
Patient has no loose teeth: Yes
Medication administered by Provider during Moderate Sedation: IV Propofol (mg)
Total dose administered: 140
Time drug administered: 10:11
Start Time: 10:10
Stop Time: 10:25
*Critical Care Note
Total Time (30-74mins, 75-104mins- exclusive of procedures): 45min
comment:
The patient arrived in rapid atrial fibrillation. At times he was hypotensive. He was electrically cardioverted x 2 attempts. He was closely monitored after his cardioversion and then remained in sinus rhythm and significantly improved.
ED Attending Note
-
Portions of this chart may have been created with voice recognition software.� Occasional wrong word or��sound alike� substitutions may have occurred due to the inherent limitations of voice recognition software.
Discharge Plan
Departure
Patient Disposition: Home (Routine Discharge)
Date of Disposition: 08/31/24
Time of Disposition: 10:39
Patient with high blood pressure during this ER visit?: No
Discharge Problem:
Atrial fibrillation with RVR
Instructions: Atrial Fibrillation (DC)
Prescriptions:
No Action
sacubitril-valsartan [Entresto] 24-26 mg Tablet
1 tab PO BID
furosemide 40 mg tablet
40 mg PO DAILY
metoprolol succinate 50 mg tablet extended release 24 hr
50 mg PO DAILY
midodrine 5 mg tablet
10 mg PO TID@0800,1300,1800
digoxin 250 mcg (0.25 mg) tablet
250 mcg PO NOON
sodium bicarbonate 650 mg tablet
650 mg PO DAILY
diltiazem HCl 120 mg capsule,extended release 24hr
120 mg PO DAILY
cholecalciferol (vitamin D3) 50 mcg (2,000 unit) tablet
50 mcg PO DAILY
Eliquis 5 mg tablet
5 mg PO BID
dapagliflozin propanediol 10 mg tablet
10 mg PO DAILY
Referrals:
Christian Guillory MD [Active] - Next open appointment
Gregorio Milton MD [Family Provider] -
Activity Restrictions/Additional Instructions:
I notified Dr. Zimmerman (tool and die technician with [facility] cardiology). Continue your Eliquis and your other cardiac medication. Call their office to arrange close follow-up this week. Return here if worse or other concerns. Your blood pressure has
been on the lower side therefore I recommend against any increase in the metoprolol at this time.
Interventions
Interventions:
*Risk Screen - Suicide Last Done: 08/31/24 09:08
*General Assessment Last Done: 08/31/24 09:08
*Neglect/Abuse Screening Last Done: 08/31/24 09:08
*ED- Fall Risk Assessment Last Done: 08/31/24 09:44
*ED COVID-19 Vaccine History Last Done: 08/31/24 09:08
ED- Cardiac Assessment Last Done: 08/31/24 09:36
ED- Pulmonary Assessment Last Done: 08/31/24 09:36
Discharge Date and Time
Print Language: VINCENTIAN
[2024-08-31 09:38] LABS: INR 1.13; PT 14.8 Sec (11.4-14.6)
[2024-08-31 09:43] LABS: % Basophils 0.2 % (0-2); % Eosinophils 0.7 % (0-6); % Immature Granulocytes 0.2 % (0-0.5); % Lymphocytes 36.6 % (20.5-51.1); % Monocytes 5.8 % (1.7-9.3); % Neutrophils 56.5 % (42.2-75.2); Absolute Eosinophils 0.1 10^3/uL (0-0.7); Absolute Lymphocytes 3.1 10^3/uL (1.2-3.4); Absolute Monocytes 0.5 10^3/uL (0.1-0.6); Absolute Neutrophils 4.7 10^3/uL (1.4-6.5); Nucleated Red Blood Cells % 0 % (-)
[2024-08-31 09:45] LABS: ALT (SGPT) 22 U/L (0-50); AST (SGOT) 40 U/L (17-59); Albumin 4.7 g/dl (3.5-5.0); Alkaline Phosphatase 57 U/L (38-126); Blood Urea Nitrogen 24 mg/dl (9-20); Calcium 9.5 mg/dl (8.4-10.2); Carbon Dioxide 21 mmol/L (22-30); Chloride 100 mmol/L (98-107); Glucose 147 mg/dl (70-99); Potassium 4.3 mmol/L (3.5-5.1); Sodium 139 mmol/L (135-145); Total Bilirubin 0.7 mg/dl (0.2-1.3); Total Protein 7.8 g/dl (6.3-8.2); eGFR > 60.00
== END 2024-08-31 12:25 | disposition home or self-care (01) ==
LOC: EMR 09:02
PROVIDERS: Emergency Medicine; EMERGENCY PHYSICIAN Emergency Medicine; FAMILY PHYSICIAN Student in an Organized Health Care Education/Training Program
DX: I48.91 Unspecified atrial fibrillation (principal); I42.9 Cardiomyopathy, unspecified; I50.9 Heart failure, unspecified; Z79.01 Long term (current) use of anticoagulants
CPT/HCPCS: 99291; 92960; 99152; 80053; 85025; 85610; 93005

== ENCOUNTER 2024-09-23 10:23 | Day surgery (SDC) | payer OTHER, SELFPAY ==
[2024-09-09 08:55] VITALS: BMI 23.7
[2024-09-09 09:33] LABS: Hematocrit 41.6 % (39.0-52.0); Hemoglobin 14.2 g/dL (13.0-18.0); Mean Corp Hgb Conc. 34.1 g/dL (33.0-37.0); Mean Corpuscular Hgb 32.5 pg (27.0-31.0); Mean Corpuscular Volume 95.2 fL (80.0-94.0); Mean Platelet Volume 9.8 fL (7.4-10.4); Platelet Count 219 10^3/uL (130-400); Red Blood Cell Count 4.37 10^6/uL (4.70-6.10); Red Cell Dist. Width 12.6 % (11.5-14.5); White Blood Cell Count 4.7 10^3/uL (4.8-10.8)
[2024-09-09 10:34] LABS: ALT (SGPT) 16 U/L (0-50); AST (SGOT) 31 U/L (17-59); Albumin 4.9 g/dl (3.5-5.0); Alkaline Phosphatase 56 U/L (38-126); Blood Urea Nitrogen 15 mg/dl (9-20); Carbon Dioxide 29 mmol/L (22-30); Chloride 101 mmol/L (98-107); Estimated Creatinine Clearance 121 ml/min; Glucose 99 mg/dl (70-99); Sodium 139 mmol/L (135-145); Total Bilirubin 1.2 mg/dl (0.2-1.3); Total Protein 7.8 g/dl (6.3-8.2); eGFR > 60.00
[2024-09-23] VITALS (12 sets, daily range): BP systolic 86–128; BP diastolic 65–93; BMI 22.7
[2024-09-23 14:02] LABS: ACT-LR - POC 306 Seconds (116-155)
--- NOTE | 2024-09-23 15:39 | ITS.CL.ABL ---
[facility] - Ablation
Ablation
Procedure Report:
AFIB ablation:
Mr. Robbins is a very pleasant 54 yr old gentleman with severe cardiomyopathy with LVEF of 20%, NYHA class III with cardiac cachexia, and atrial flutter and atrial fibrillation's who had developed left atrial appendage clot and was anticoagulated
resulting in resolution of the left-sided appendage clot and underwent successful DC cardioversion. He is started on GDMT including metoprolol 50, dapagliflozin 10 and was not able to tolerate CHAITANYA or Entresto, on midodrine for blood pressure
support, presented today to the EP lab for atrial fibrillation / flutter ablation.
Date of Procedure:
09/23/2024
Indications:
Recurrent atrial fibrillation / atrial flutter
Pre-Operative Diagnosis:
Persistent atrial fibrillation /Atrial flutter
Post-Operative Diagnosis:
Persistent atrial fibrillation /Atrial flutter
Procedure Performed:
Atrial fibrillation ablation with pulmonary vein isolation
Left atrial flutter � roof dependent ablation
Posterior wall isolation
Mitral isthmus ablation for yaw-mitral flutter ablation
Performing Physician:
Dallas Smyth MD
Assistants:
EP staff
Anesthesia:
See anesthesia records
Detailed Description of the Procedure:
Written informed consent was obtained from the patient after a full explanation of the risks and benefits of the procedure including the risks of sedation and anesthesia.
The patient was brought to the electrophysiology laboratory in stable condition in fasting state. Continuous electrocardiographic and hemodynamic monitoring was initiated.
The initial rhythm was sinus.
Time out:
The procedure site was meticulously prepared with surgical scrub and allowed to dry with no pooling. Sterile draping was applied to cover the procedure site. The image intensifier was draped with sterile bag and positioned over the patient.
Prior to the start of the procedure a surgical pause was performed with in agreement from anesthesia, EP staff with double identifier and explanation of the procedure, plan and site of the procedure stated with allergies and medications and
pertinent labs reviewed.
After infusion of local anesthetic, vascular access was obtained under ultrasound guidance and sheaths were placed over guide wire as detailed below. The images were stored in patient chart.
Sheaths:
��������������� Agilis sheath in right femoral vein upgraded from 8Fr in right femoral vein
��������������� 9Fr in right femoral vein
���������������
Catheters:
��������������� The Affera Sphere 9 catheter -bidirectional D/F� - at locations of HRA, RV, LA and LV.
��������������� ICE catheter - at locations of RA, SVC, and RV.
��������������� Bard decapolar catheter � In RA and CS
���������������
A 5000 units of heparin was given
Intracardiac ECHO:
An 8-American AcuNav intracardiac ECHO (ICE) probe was advanced through the 9-American sheath in the right femoral vein into the right atrium under fluoroscopic and ICE ultrasound image guidance and a baseline ECHO study was performed. The left atrial
size was severely dilated. There was trace tricuspid regurgitation. There was mild mitral regurgitation. There was severely reduced left ventricular systolic function. There is no pericardial effusion. All the four veins were identified and has good
flow identified. No definite clot seen.�
During the procedure, ICE was used for monitoring of complications, guidance of trans-septal puncture, monitor the catheter position and tracking ablation lesions. No change in the pericardial space noted throughout the procedure.
Trans-septal Puncture:
Heparin was initiated and infused to maintain appropriate ACT. A J-tipped guidewire was advanced through into the superior vena cava under fluoroscopic and ICE guidance. The Agilis sheath was advanced into the superior vena cava over a guidewire. A
BRK needle with stylet was advanced inside the Agilis sheath. The apparatus was withdrawn until it was in contact with the fossa ovalis. The position was adjusted based on fluoroscopy and ultrasound images from ICE. Under fluoroscopic, hemodynamic
and ICE ultrasound guidance, left atrium was cannulated by advancing the needle. Once atrial septum was cannulated, the needle was pulled back and the guide wire was advanced through the needle into the left atrium. The guide wire was advanced into
the left superior pulmonary vein. Both the sheath and the dilator was advanced into the left atrium. The dilator with the needle was withdrawn. Blood was aspirated from the Agilis sheath and arterial blood confirmed. The sheath was flushed. Saline
injection noted into the left atrium on ICE. The waveform of the LA pressure was recorded. The mapping catheter was advanced in the Agilis sheath into the left pulmonary vein.
3D Electroanatomic Mapping:
Using the Sphere 9 Affera catheter advanced through Agilis sheath into the left atrium, an electroanatomic map (EAM) of the left atrium was created using [employer]� mapping system with Particle software. The map was used for localization of catheter
position and tacking of ablation lesions.
The EAM of the left atrium showed a total of 4 PVs with two left and two right sided pulmonary veins. There was sporadic scarring noted in the LA. The posterior wall had scattered signals. The LA was dilated. �
Following the EAM, preparation were made for ablation.
Ablation:
Ablation # 1: Atrial fibrillation ablation - Pulmonary vein Isolation:
Pulsed field ablation was performed using an open irrigation, bidirectional, contact sensing, dual energy ablation catheter (Affera sphere -9) by completing the circumferential lesions around the left and right pulmonary veins achieving pulmonary
vein isolation.
All PVI were rechecked at the end of the case and remained isolated with dissociated and local capture with pacing. Entrance and exit block were demonstrated in all veins.
While doing the left sided veins, patient developed atrial flutter. The flutter was left atrial sided.
With PVI done the LA was mapped. The flutter degenerated into atrial flutter.
Ablation # 2: Roof line Formation:
There was a clear channel of electrical activity left in the posterior wall with multiple CFAE and AF areas on the roof and ablation in that area increased the risk of atrial flutter and decision was made to create a roof line to block a slow
conduction. A set of pulsed field ablations were placed on the roof line connecting the left superior pulmonary vein ablation lesions to the right superior pulmonary vein lesions rings.
Ablation # 3: Posterior wall isolation with the Box lesions set Formation:
There was a significant fractionation seen in the posterior wall and LA AF foci along with CFAE made it clear as the posterior wall is critical in maintaining the atrial fibrillation and the decision was made to isolate the posterior wall by
creating a �Box� lesions.
A set of Pulsed field ablations were placed on the floor line connecting the left inferior pulmonary vein ablation lesions to the right inferior pulmonary vein lesions rings.
Once sinus rhythm achieved, the sphere 9 in the posterior wall showed entrance block and the pacing from the posterior wall showed no exit from the box lesions confirming the exit block.
The atrial fibrillation organized into atrial flutter 230 msec in CL.
Ablation # 4: Mitral isthmus ablation for yaw-mitral flutter ablation
The flutter was mapped. The cycle length of the tachycardia was 230 ms. The flutter was revolving around the mitral valve consistent with mitral flutter and was dependent on mitral isthmus. Decision was made to create a line of block at mitral
isthmus.
Mitral line was done for the mitral isthmus from the left inferior PV antrum to the lateral mitral annulus. The pulsed field ablations were placed at the isthmus and switched to radiofrequency once close to the mitral annulus.
The mitral flutter slowed and terminated into sinus rhythm with the completion of mitral isthmus line of block.
Confirmation of the PVI and bidirectional block:
Following achievement of entrance block at the pulmonary veins, pacing from the Sphere 9 affera catheter in each of the four veins at 20 milliamps for 4 milliseconds showed entrance and exit block.
The LA was mapped with The Affera� mapping system with Prism-1 software in sinus rhythm confirming the line of block at the ablation lesions lines.
�
The AV floyd functions are deemed within normal range.
All PVI were rechecked at the end of the case. Entrance and exit block were demonstrated.
Procedure End
ICE study was done again that showed no epicardial accumulation. No complications noted.
Following the completion of the EP study, catheters were removed. Protamine 40 mg was given at the end of the procedure and ACT was checked repeatedly. The sheaths were removed and hemostasis achieved with VASCADE and manual compression.
Left atrial Pressure:
Post-Procedure: Mean LA pressure was 10mmHg
Post-Procedure: Mean RA pressure was 7mmHg
Fluoro Time:
0
Estimated Blood loss:
<10 cc
Specimens Removed:
None.
Implants / Devices:
None
Urine output:
None
Packs / Drains/ Tubes:
None
Instrument / Sponge Count Correct:
Yes
Complications of the Procedure:
None
Condition of Patient at Time of Transfer:
Hemodynamically stable with no neurological or vascular compromise.
Summary:
Successful atrial fibrillation ablation with pulmonary vein isolation, roof flutter ablation, posterior wall isolation, mitral isthmus ablation for yaw-mitral flutter ablation,
--- NOTE | 2024-09-23 17:53 | W.PN.UPDATE ---
Update Note
Progress Note Update
Pt seen post PFA/AFib and Flutter ablation. Right groin site with vascade closure, no ht/bleeding, oob ambulating, urinating without difficulty. Post EKG NSR 80s, no acute changes. Resume eliquis tonight, continue other meds as before. Followup at
[facility] as scheduled. Home today if groin site/tele remain stable.
[2024-09-24 13:20] LABS: ACT-LR - POC > 397 Seconds (116-155)
[2024-09-24 13:20] LABS: ACT-LR - POC > 397 Seconds (116-155)
== END 2024-09-23 18:00 | disposition home or self-care (01) ==
LOC: CATH 10:23
PROVIDERS: ATTENDING PHYSICIAN Internal Medicine Cardiovascular Disease; FAMILY PHYSICIAN Student in an Organized Health Care Education/Training Program; OTHER PHYSICIAN Student in an Organized Health Care Education/Training Program
DX: I48.19 Other persistent atrial fibrillation (principal); I48.92 Unspecified atrial flutter; Z79.01 Long term (current) use of anticoagulants; Z79.899 Other long term (current) drug therapy
CPT/HCPCS: C1769; C1730; C1766; C1894; C1892; C1759; C1733; 36415; 80053; 85027; 85347; 86850; 86900; 86901; 93005; 93655; 93656; 93657; C1760

== ENCOUNTER → 2025-01-30 14:55 | Outpatient (REF) | payer OTHER, SELFPAY | LOC: HWRCS 14:55 | PROVIDERS: ATTENDING PHYSICIAN Student in an Organized Health Care Education/Training Program; FAMILY PHYSICIAN Student in an Organized Health Care Education/Training Program | DX: I50.20 Unspecified systolic (congestive) heart failure (principal) | CPT/HCPCS: 93306 ==

== ENCOUNTER 2025-03-21 11:24 | Emergency (ER) | payer OTHER, SELFPAY ==
[2025-03-21 11:27] VITALS: BP 113/76
[2025-03-21 11:49] LABS: Hematocrit 37.7 % (39.0-52.0); Hemoglobin 12.9 g/dL (13.0-18.0); Mean Corp Hgb Conc. 34.2 g/dL (33.0-37.0); Mean Corpuscular Volume 100.0 fL (80.0-94.0); Nucleated Red Blood Cells % 0 % (-); Platelet Count 165 10^3/uL (130-400); Red Cell Dist. Width 12.6 % (11.5-14.5)
[2025-03-21 12:26] LABS: ALT (SGPT) 34 U/L (0-50); AST (SGOT) 76 U/L (17-59); Albumin 4.5 g/dl (3.5-5.0); Alkaline Phosphatase 44 U/L (38-126); Blood Urea Nitrogen 11 mg/dl (9-20); Calcium 8.6 mg/dl (8.4-10.2); Carbon Dioxide 23 mmol/L (22-30); Chloride 107 mmol/L (98-107); Glucose 119 mg/dl (70-99); Potassium 4.4 mmol/L (3.5-5.1); Sodium 143 mmol/L (135-145); Total Protein 7.4 g/dl (6.3-8.2); eGFR > 60.00
--- NOTE | 2025-03-21 12:47 | ED.GENMED ---
History of Present Illness
General
Chief Complaint: Fainting/Passed Out
Source: patient
Time Seen by Provider: 03/21/25 11:49
History of Present Illness
History of Present Illness:
Note:
CHIEF COMPLAINT(S)
Patient reports passing out in their car.
HISTORY OF PRESENT ILLNESS
The patient is a 54-year-old male who presented after experiencing a syncopal episode while in their car. The patient stated that he went to [employer] and was feeling fine until the incident. He recalls purchasing breakfast items and then passing
out; he does not remember the events leading up to the loss of consciousness and only recalls being in the ambulance afterward. The patient denies any prior history of similar episodes. He reports no chest pain or shortness of breath associated with
the incident.
The patient noted a history of heart failure and atrial fibrillation diagnosed last year, for which he was hospitalized for three weeks. He is on medications including Forxiga (dapagliflozin) and metoprolol. The patient typically experiences a
staggering gait, which he reports as normal for him. There was a noted alcohol consumption on , but the patient denies alcohol intake today and reports no illicit drug use. He expressed a desire to understand the cause of the passing out
episode.
PAST MEDICAL AND SURGICAL HISTORY
The patient reports a history of heart failure and atrial fibrillation treated last year.
MEDICATIONS
The patient is currently taking dapagliflozin (Forxiga) and metoprolol.
SOCIAL HISTORY
The patient drinks alcohol occasionally with the last instance being on , but reports no alcohol consumption today. The patient denies smoking and illicit drug use.
PHYSICAL EXAM
General: Alert, appears intoxicated but in no acute distress.
Skin: Warm, dry.
Head: Normocephalic, atraumatic.
Neck: Supple, trachea midline.
Eye, Ears, Nose, Mouth, and Throat: Oral mucosa moist.
Cardiovascular: Normal peripheral perfusion, regular rhythm without murmur. No edema.
Respiratory: Respirations are non-labored; lungs are clear to auscultation.
Gastrointestinal: Abdomen soft, non-tender, non-distended.
Back: Normal range of motion, normal alignment.
Musculoskeletal: Normal range of motion, normal strength.
Neurological: Alert and oriented, no pronator drift, normal [id number] testing, no focal neurological deficits observed.
Psychiatric: Cooperative, appropriate mood and affect.
PLAN
1. Place the patient on a surveillance system monitor to observe heart rhythm.
2. Obtain laboratory tests, including urinalysis, to check for blood, protein, or kidney dysfunction.
3. Monitor the patient closely to determine the cause of the syncope episode.
DIFFERENTIAL DIAGNOSIS
The Differential Diagnosis includes, in no particular order and is not limited to:
1. Syncope secondary to cardiac arrhythmia
2. Orthostatic hypotension
3. Hypoglycemia
4. Seizure activity
5. Vasovagal syncope
6. Dehydration
7. Medication side effect
8. Cerebrovascular accident
9. Pulmonary embolism
10. Alcohol intoxication
CARE-UPDATE
03/21/25 - 12:47
The patient is currently stable with good heart rate and EKG readings. Despite initially denying recent alcohol consumption, the patient subsequently confirmed excessive alcohol intake, with a blood alcohol level measured at 0.4, significantly
higher than the legal limit for driving (0.08). The cause of the patients symptoms is now considered to be highly related to alcohol consumption. The physician emphasized the severity of the situation, urging the patient to avoid driving under
alcohol influence due to the high risk of harm to themselves and others. The patient was advised on the importance of providing accurate information to ensure appropriate medical care. The patients family is present and aware of the drinking issue.
The patient is cleared for discharge with a recommendation to use alternative transportation options in the future when consuming alcohol.
EKG
My independent EKG interpretation is:
- Rhythm: Normal sinus rhythm
- Heart Rate: 71 bpm
- VT Interval: Normal
- QT Interval: Normal
- QRS Duration: Normal
- No ST segment changes observed
- No T wave inversions
- No arrhythmias detected
Disposition:
SUMMARY OF ENCOUNTER
The patient, a 54-year-old male, arrived at the emergency department after experiencing a syncopal episode in his car. He initially denied alcohol consumption, but laboratory results revealed a blood alcohol level of 397 mg/dL (0.39 CONSUELO). Upon
reassessment, the patient admitted to alcohol use. He was counseled on the dangers of alcohol consumption and operating a vehicle under the influence. His family was present to transport him home. Laboratories indicated a very mild anemia with
hemoglobin at 12.9 g/dL, but were otherwise unremarkable. The patients comprehensive metabolic panel was normal.
DISPOSITION
Discharge.
ASSESSMENT
The syncopal episode appears to be secondary to alcohol intoxication rather than an underlying cardiac or arrhythmic cause.
PLAN
1. The patient should abstain from alcohol consumption and avoid driving while intoxicated to prevent future incidents.
2. The patient was informed about the significant risk of harm due to his actions.
3. Recommended alternative transportation options for future situations involving alcohol use.
INDEPENDENT REVIEW OF LABS AND INTERPRETATION OF TESTS
My independent review of the Complete Blood Count (CBC) shows a very mild anemia with a hemoglobin of 12.9 g/dL.
My independent review of the Comprehensive Metabolic Panel (CMP) is normal.
My independent EKG interpretation is normal sinus rhythm, with no indications of arrhythmia.
PATIENT EDUCATION AND COUNSELING
The patient was counseled on the risks associated with alcohol consumption and operating a vehicle under the influence. Information on the legal risks and potential harm to self and others was provided. Family members here to assist with transport
home.
FOLLOW-UP INSTRUCTIONS
Please follow up with your primary care provider for further evaluation and management of the mild anemia and any underlying alcohol use disorder.
MEDICATION RECONCILIATION
The patient continues on his prescribed medications, dapagliflozin, and metoprolol, which were not altered during this visit.
MEDICAL DECISION MAKING
-Complexity of Data Reviewed: Chronic conditions affecting care include heart failure and atrial fibrillation.
-Data:
Category 1
The patients alcohol level was reviewed, revealing a significant intoxication level.
My independent interpretation of the EKG shows normal rhythm and no arrhythmic concerns.
-Risk:
Consideration of Admission/Observation: Escalation of care including admission/observation was considered given the complexity and risk of the patients presenting complaint, exam findings, and underlying comorbidities. However, ultimately I feel the
patient is safe for outpatient management with close follow-up. Reasoning: Work-up was reassuring, did not reveal any acute life/organ threatening processes, patients symptoms were well controlled upon reevaluation, reexamination was reassuring,
vitals were stable, patient agreeable with discharge, reliable for follow-up.
DIAGNOSIS
1. Alcohol intoxication (F10.129)
Phy Exam
Physical Exam
Physical Exam:
.
Course
Orders/Labs/Results
Orders:
Orders
03/21/25 11:31
Electrocardiogram (*1) Urgent
Reason for Study: Syncope
EKG- Treatment ONCE
03/21/25 11:40
Alcohol Urgent
Complete Blood Count/With Diff Urgent
Comprehensive Metabolic Panel Urgent
03/21/25 11:49
Urine Drug Abuse Screen Urgent
Abnormal Lab Results
03/21/25
11:40
WBC 3.8 L 10^3/uL
(4.8-10.8)
RBC 3.77 L 10^6/uL
(4.70-6.10)
Hgb 12.9 L g/dL
(13.0-18.0)
Hct 37.7 L %
(39.0-52.0)
MCV 100.0 H fL
(80.0-94.0)
MCH 34.2 H pg
(27.0-31.0)
Neutrophils % 39.0 L %
(42.2-75.2)
Eosinophils % 7.4 H %
(0-6)
Glucose 119 H mg/dl
(70-99)
AST 76 H U/L
(17-59)
03/21/25 11:40
03/21/25 11:40
Vital Signs
Initial and Last Documented VS:
Initial Vital Signs
Temp Pulse Resp BP Pulse Ox
98.3 F 74 18 113/76 93
03/21/25 11:27 03/21/25 11:27 03/21/25 11:27 03/21/25 11:27 03/21/25 11:27
Last Documented Vital Signs
Temp Pulse Resp BP Pulse Ox
98.3 F 75 13 113/76 94
03/21/25 11:27 03/21/25 11:57 03/21/25 11:57 03/21/25 11:27 03/21/25 11:57
*Pulse Oximetry
SaO2: 94
Oxygen Mode of Delivery: Room air
Patient hypoxic: no
*Critical Care Note
Total Time (30-74mins, 75-104mins- exclusive of procedures): Not Applicable
ED Attending Note
-
Portions of this chart may have been created with voice recognition software.� Occasional wrong word or��sound alike� substitutions may have occurred due to the inherent limitations of voice recognition software.
Discharge Plan
Departure
Patient Disposition: Home (Routine Discharge)
Date of Disposition: 03/21/25
Time of Disposition: 12:47
Patient with high blood pressure during this ER visit?: No
Discharge Problem:
Acute alcohol intoxication
Instructions: Alcohol intoxication - ED (DC)
Prescriptions:
No Action
Entresto 24-26 mg Tablet
1 tab PO BID
metoprolol succinate 50 mg tablet extended release 24 hr
50 mg PO DAILY
Eliquis 5 mg tablet
5 mg PO BID
dapagliflozin propanediol 10 mg tablet
10 mg PO DAILY
Referrals:
Gregorio Milton MD [Family Provider, Family Practice]
Activity Restrictions/Additional Instructions:
Please do not drink alcohol and drive.
Return immediately for chest pain, shortness of breath, vomiting or any other concerns. Please avoid drinking any alcohol today. Maintain proper hydration. Please see your doctor in the next 1 week for follow-up and reevaluation
Interventions
Interventions:
*Risk Screen - Suicide Last Done: 03/21/25 11:27
*General Assessment Last Done: 03/21/25 11:27
*Neglect/Abuse Screening Last Done: 03/21/25 11:27
ED- Cardiac Assessment Last Done: 03/21/25 11:53
ED- Neurological Assessment Last Done: 03/21/25 11:53
Discharge Date and Time
Print Language: MONTENEGRIN
== END 2025-03-21 13:15 | disposition home or self-care (01) ==
LOC: EMR 11:24
PROVIDERS: EMERGENCY PHYSICIAN Emergency Medicine; FAMILY PHYSICIAN Student in an Organized Health Care Education/Training Program
DX: F10.129 Alcohol abuse with intoxication, unspecified (principal); D64.9 Anemia, unspecified; I48.91 Unspecified atrial fibrillation; I50.9 Heart failure, unspecified; Y90.8 Blood alcohol level of 240 mg/100 ml or more
CPT/HCPCS: 99284; 80053; 82077; 85025; 93005